=== PATIENT | female | born 1950 | race Caucasian/White ===

== ENCOUNTER → 2020-08-16 | Outpatient (CLI) | payer SELFPAY | PROVIDERS: Referring Provider Internal Medicine; Visit Provider Internal Medicine | DX: Z23 Encounter for immunization (principal) | CPT/HCPCS: 90471; 90686 ==

== ENCOUNTER → 2020-10-05 07:36 | Outpatient (CLI) | payer MEDICARE, SELFPAY ==
[2020-10-05] MEDS: COVID-19 VACC(MODERNA-1)/PF 100 MCG/0.5 ML VIAL IM (07:46)
== END ==
PROVIDERS: Visit Provider Internal Medicine
DX: Z23 Encounter for immunization (principal)
CPT/HCPCS: 0011A; 91301

== ENCOUNTER → 2020-11-01 07:42 | Outpatient (CLI) | payer OTHER, SELFPAY ==
[2020-11-01] MEDS: COVID-19 VACC #2, MRNA(MOD) 100 MCG/0.5 ML VIAL IM (07:49)
== END ==
PROVIDERS: Visit Provider Internal Medicine
DX: Z23 Encounter for immunization (principal)
CPT/HCPCS: 0012A; 91301

== ENCOUNTER → 2020-12-06 07:19 | Outpatient (CLI) | payer OTHER, MEDICARE, SELFPAY ==
[2020-12-06 08:13] LABS: Add Manual Diff / Slide Review NO; Basophils Absolute Auto 100 /uL (0-100); Eosinophils Absolute Auto 200 /uL (0-450); Eosinophils Percent Auto 3.6 % (2-4); Hematocrit 38.2 % (36-46); Lymphocytes Absolute Auto 1700 /uL (1100-4500); Lymphocytes Percent Auto 33.4 % (25-40); Mean Corpuscular Hemoglobin 31.5 PG (26-34); Mean Corpuscular Volume 92.6 fL (80-100); Monocytes Absolute Auto 400 /uL (0-900); Monocytes Percent Auto 8.8 % (3-14); Neutrophils Absolute Auto 2700 /uL (1500-7000); Neutrophils Percent Auto 53.2 % (50-75); Platelet Count 255 X10^3/uL (150-400); Red Blood Cell Count 4.13 X10^6/uL (4.0-5.2); Red Cell Distribution Width 13.7 % (11.6-14.8)
[2020-12-06 08:26] LABS: Alanine Aminotransferase 23 IU/L (<35); Albumin 4.1 g/dL (3.5-5.0); Albumin Globulin Ratio 1.4 (1.0-2.8); Alkaline Phosphatase 105 U/L (38-126); Aspartate Aminotransferase 28 IU/L (14-36); BUN Creatinine Ratio 43.9 (6-22); Bilirubin Total 0.3 mg/dL (0.2-1.3); Blood Urea Nitrogen 25 mg/dL (7-17); Calcium 9.3 mg/dL (8.4-10.2); Carbon Dioxide 29 mmol/L (22-32); Chloride 106 mmol/L (98-107); Cholesterol 173 mg/dL (140-199); Estimated Glomerular Filt Rate > 60.0 mL/min (>60); Globulin 2.9 g/dL (1.7-4.1); Glucose 99 mg/dL (80-110); HDL Cholesterol 69 mg/dL (40-60); HEMOLYSIS < 15 (0-50); LDL Cholesterol Calculated 92 mg/dL (<100); Potassium 4.2 mmol/L (3.4-5.1); Sodium 138 mmol/L (137-145); Triglycerides 62 mg/dL (35-150)
[2020-12-06 08:41] LABS: Vitamin D 25 Hydroxy (D3) 25.2 ng/mL (30.0-100.0)
[2020-12-06 08:56] LABS: TSH w/ Reflex to FT4 4.13 uIU/mL (0.47-4.68)
== END ==
PROVIDERS: PCP Physician Assistant; Referring Provider Physician Assistant; Visit Provider Physician Assistant
DX: Z13.9 Encounter for screening, unspecified (principal)
CPT/HCPCS: 36415; 80053; 80061; 82306; 84443; 85025

== ENCOUNTER → 2020-12-09 13:43 | Outpatient (CLI) | payer OTHER, SELFPAY | PROVIDERS: PCP Physician Assistant; Referring Provider Physician Assistant; Visit Provider Physician Assistant | DX: M81.0 Age-related osteoporosis without current pathological fracture (principal); Z78.0 Asymptomatic menopausal state; E07.9 Disorder of thyroid, unspecified; Z90.722 Acquired absence of ovaries, bilateral | CPT/HCPCS: 77080 ==

== ENCOUNTER → 2020-12-28 14:57 | Outpatient (CLI) | payer OTHER, MEDICARE, SELFPAY ==
[2020-12-28 16:30] LABS: BUN Creatinine Ratio 27.2 (6-22); Blood Urea Nitrogen 25 mg/dL (7-17); Estimated Glomerular Filt Rate > 60.0 mL/min (>60)
== END ==
PROVIDERS: PCP Physician Assistant; Referring Provider Physician Assistant; Visit Provider Physician Assistant
DX: M81.0 Age-related osteoporosis without current pathological fracture (principal)
CPT/HCPCS: 36415; 82565; 84520

== ENCOUNTER → 2020-12-29 11:11 | Outpatient (CLI) | payer OTHER, SELFPAY ==
--- NOTE | 2020-12-29 | DI.MG.S_ITS ---
BILATERAL DIGITAL SCREENING MAMMOGRAM 3D/2D WITH CAD: 12/29/2020 CLINICAL: Routine screening. Comparison is made to exams dated: 08/14/2012 mammogram, 10/30/2013 mammogram, and 05/03/2016 mammogram - outside location. The tissue of both breasts is heterogeneously dense. This may lower the sensitivity of mammography. Current study was also evaluated with a Computer Aided Detection (CAD) system. No significant masses, calcifications, or other findings are seen in either breast. There has been no significant interval change. IMPRESSION: NEGATIVE There is no mammographic evidence of malignancy. A 1 year screening mammogram is recommended. This exam was interpreted at Station ID: [id number]. NOTE: For mammograms, a report in lay terms will be sent to the patient. Approximately 15% of breast malignancies will not be visualized mammographically. In the management of a palpable breast mass, a negative mammogram must not discourage biopsy of a clinically suspicious lesion. Electronically Signed By: Ashkan gallagher/israel:12/29/2020 12:51:20 letter sent: Normal Exam ACR BI-RADS Category 1: Negative [id number]
== END ==
PROVIDERS: PCP Physician Assistant; Referring Provider Physician Assistant; Visit Provider Physician Assistant
DX: Z12.31 Encounter for screening mammogram for malignant neoplasm of breast (principal)
CPT/HCPCS: 77063; 77067

== ENCOUNTER → 2021-01-02 13:13 | Outpatient (CLI) | payer OTHER, SELFPAY ==
[2021-01-02 13:44] LABS: COVID19 -Nasal RAPID Negative (Negative)
== END ==
PROVIDERS: PCP Physician Assistant; Visit Provider Physician Assistant
DX: Z20.822 Contact with and (suspected) exposure to COVID-19 (principal)
CPT/HCPCS: 87635

== ENCOUNTER → 2021-01-20 08:52 | Outpatient (CLI) | payer OTHER, MEDICARE, SELFPAY ==
[2021-01-20 09:50] LABS: COVID19 -Nasal RAPID Negative (Negative)
== END ==
PROVIDERS: PCP Physician Assistant; Visit Provider Physician Assistant
DX: N34.3 Urethral syndrome, unspecified (principal); Z20.822 Contact with and (suspected) exposure to COVID-19
CPT/HCPCS: 87086; 87635

== ENCOUNTER → 2021-01-22 15:29 | Outpatient (CLI) | payer OTHER, MEDICARE, SELFPAY ==
[2021-01-22 16:58] LABS: COVID19 - ADMIT (NP swab/PCR) Negative (Negative)
== END ==
PROVIDERS: PCP Physician Assistant; Visit Provider Physician Assistant
DX: Z20.822 Contact with and (suspected) exposure to COVID-19 (principal); R53.83 Other fatigue
CPT/HCPCS: U0003

== ENCOUNTER → 2021-07-14 11:55 | Outpatient (CLI) | payer OTHER, MEDICARE, SELFPAY ==
--- NOTE | 2021-07-14 11:58 | DI.RAD.S_ITS ---
PROCEDURE: XR FOOT LT MIN 3V INDICATIONS: 2-3 metatarsal pain TECHNIQUE: 3 views of the foot were acquired. COMPARISON: None. FINDINGS: Bones: On 1 image, there is a mildly displaced fracture seen involving the distal aspect of the proximal phalanx of the 2nd toe. No metatarsal fractures are seen. No additional fractures or dislocations. No suspicious bony lesions. Distal fibular hardware is partially seen. Incidental note is made of a bipartite medial sesamoid bone. Age-appropriate bony degenerative changes are seen. A plantar calcaneal spur is seen. Soft tissues: No tibiotalar joint effusion. Achilles tendon appears normal. IMPRESSION: 2nd toe fracture. Dictated by: Erick Anthony M.D. on 07/14/2021 at 11:19 Approved by: Erick Anthony M.D. on 07/14/2021 at 11:20
== END ==
PROVIDERS: PCP Physician Assistant; Referring Provider Nurse Practitioner; Visit Provider Nurse Practitioner
DX: M79.672 Pain in left foot (principal); S92.512A Displaced fracture of proximal phalanx of left lesser toe(s), initial encounter for closed fracture; X58.XXXA Exposure to other specified factors, initial encounter
CPT/HCPCS: 73630

== ENCOUNTER → 2021-09-11 09:36 | Outpatient (CLI) | payer OTHER, MEDICARE, SELFPAY ==
[2021-09-11 13:47] LABS: COVID19 -Nasal RAPID Negative (Negative)
== END ==
PROVIDERS: PCP Physician Assistant; Visit Provider Nurse Practitioner Family
DX: Z20.822 Contact with and (suspected) exposure to COVID-19 (principal); R05.9 Cough, unspecified; R68.89 Other general symptoms and signs
CPT/HCPCS: 87635

== ENCOUNTER → 2021-11-03 17:47 | Outpatient (CLI) | payer OTHER, MEDICARE, SELFPAY | PROVIDERS: PCP Physician Assistant; Visit Provider Physician Assistant | DX: R30.0 Dysuria (principal) | CPT/HCPCS: 87077; 87086; 87186 ==

== ENCOUNTER 2021-12-02 10:12 | Observation (INO) | payer OTHER, MEDICARE, SELFPAY ==
[2021-12-02] VITALS (17 sets, daily range): BP systolic 111–150; BP diastolic 60–71; PULSE 54–66; RESP 10–19; TEMP 36.1–37; O2SAT 93–100; BMI 29.8
--- NOTE | 2021-12-02 10:28 | DI.RAD.S_ITS ---
PROCEDURE: XR CHEST 1V INDICATIONS: chest pain TECHNIQUE: One view of the chest was acquired. COMPARISON: None. FINDINGS: Surgical changes and devices: None. Lungs and pleura: Mild diffuse interstitial prominence. Patchy bibasilar atelectasis. No pleural effusions or pneumothorax. Mediastinum: Mediastinal contours appear normal. Mild cardiomegaly. Bones and chest wall: No suspicious bony lesions. Overlying soft tissues appear unremarkable. IMPRESSION: Mild cardiomegaly, mild diffuse interstitial prominence, patchy bibasilar atelectasis. Dictated by: Anthony Collins M.D. on 12/02/2021 at 10:36 Approved by: Anthony Collins M.D. on 12/02/2021 at 10:37
--- NOTE | 2021-12-02 10:28 | PC.NURSE ---
reports dizziness is worse when turning head to right side, first episode happaned turning head to right towards .
[2021-12-02 10:36] LABS: INR 1.1 (0.9-1.3); Prothrombin Time 12.4 SECONDS (10.1-12.7)
[2021-12-02 10:38] LABS: Add Manual Diff / Slide Review NO; Basophils Absolute Auto 100 /uL (0-100); Basophils Percent Auto 0.9 % (0-2); Eosinophils Absolute Auto 200 /uL (0-450); Eosinophils Percent Auto 3.4 % (2-4); Hematocrit 39.5 % (36-46); Hemoglobin 13.2 g/dL (12.0-16.0); Lymphocytes Absolute Auto 2500 /uL (1100-4500); Lymphocytes Percent Auto 38.3 % (25-40); Mean Corpuscular HGB Conc 33.5 % (30-36); Mean Corpuscular Hemoglobin 30.7 PG (26-34); Mean Corpuscular Volume 91.6 fL (80-100); Monocytes Absolute Auto 500 /uL (0-900); Monocytes Percent Auto 7.7 % (3-14); Neutrophils Absolute Auto 3200 /uL (1500-7000); Neutrophils Percent Auto 49.7 % (50-75); Platelet Count 284 X10^3/uL (150-400); Red Blood Cell Count 4.31 X10^6/uL (4.0-5.2); Red Cell Distribution Width 13.8 % (11.6-14.8); White Blood Cell Count 6.5 X10^3/uL (4.5-11.0)
[2021-12-02 10:39] LABS: PTT Partial Thromboplastin Tim 32 SECONDS (26.4-36.2)
[2021-12-02 10:41] LABS: Alanine Aminotransferase 29 IU/L (<35); Albumin 4.2 g/dL (3.5-5.0); Albumin Globulin Ratio 1.3 (1.0-2.8); Alkaline Phosphatase 100 U/L (38-126); Aspartate Aminotransferase 37 IU/L (14-36); BUN Creatinine Ratio 29.7 (6-22); Bilirubin Total 0.6 mg/dL (0.2-1.3); Blood Urea Nitrogen 19 mg/dL (7-17); Calcium 9.4 mg/dL (8.4-10.2); Carbon Dioxide 27 mmol/L (22-32); Chloride 108 mmol/L (98-107); Creatine Kinase 28 U/L (30-135); Estimated Glomerular Filt Rate > 60.0 mL/min (>60); Globulin 3.2 g/dL (1.7-4.1); Glucose 109 mg/dL (80-110); Lipase 128 U/L (23-300); Magnesium 2.3 mg/dL (1.6-2.3); Potassium 4.4 mmol/L (3.4-5.1); Sodium 137 mmol/L (137-145); Total Protein 7.4 g/dL (6.3-8.2)
[2021-12-02 10:45] LABS: HEMOLYSIS 65 (0-50)
[2021-12-02 10:52] LABS: Troponin I < 0.012 ng/mL (0.01-0.034)
[2021-12-02 10:56] LABS: COVID19 -Nasal RAPID Negative (Negative)
--- NOTE | 2021-12-02 10:59 | ED.SYNCOPE ---
HPI - Syncope General Chief Complaint: Syncope Stated Complaint: syncope Time Seen by Provider: 12/02/21 10:59 Source: patient and EMS Mode of arrival: EMS Limitations: no limitations History of Present Illness HPI narrative: This is a 71-year-old female who comes to emergency department with complaint of sudden onset of dizziness. Patient states she was lying in bed on her left side she turned her head and felt a click on the right side of her neck. And she immediately felt very dizzy. She describes the room is not spinning but more dizziness and lightheadedness. Patient states she felt like she was going to pass out thinks she may have had a short loss of consciousness. She states this happened again when I tried to do orthostatics with EMS and they tried to sit her up from a lying position. She notes it more when she rotates her head to the right. She states this happened about 9:00 a.m. in the morning. She has not had any recent trauma or injury. She did is have a history of vertigo 20 years ago but she states the room was spinning more. Patient has had some nausea but no active vomiting. She denies chest pain or shortness of breath. She denies fevers or chills. No diarrhea constipation, no new urinary symptoms. No numbness, tingling or weakness. Patient has a history of hypertension, hypothyroid, anxiety/depression, asthma. No anticoagulants no daily aspirin. Patient has had hysterectomy, bilateral oophorectomy, appendectomy. No tobacco had a half glass of beer yesterday, no illicit. Patient lives with her . Related Data Home Medications Medication Instructions Recorded Confirmed albuterol sulfate 2 puff INHALATION .PRN PRN 01/20/21 12/02/21 amlodipine 10 mg tablet 10 mg PO DAILY 01/20/21 12/02/21 atenolol 25 mg tablet 25 mg PO DAILY 01/20/21 12/02/21 escitalopram oxalate 20 mg tablet 10 mg PO DAILY 01/20/21 12/02/21 (Lexapro) levothyroxine 75 mcg tablet 75 mcg PO DAILY 01/20/21 12/02/21 trazodone 50 mg PO QPM 01/20/21 12/02/21 cetirizine 10 mg tablet (24Hour 10 mg PO DAILY 12/02/21 12/02/21 Allergy) zoledronic acid 5 mg/100 mL in See Rx Instructions .ROUTE .COMPLEX 12/02/21 12/02/21 mannitol 5 %-water intravenous piggybck (Reclast) Previous Rx's Medication Instructions Recorded cyclobenzaprine 5 mg tablet 5 mg PO TID PRN #21 tab 10/03/21 Allergies Allergy/AdvReac Type Severity Reaction Status Date / Time butorphanol [From Stadol] Allergy Verified 11/03/21 17:52 codeine Allergy Verified 11/03/21 17:52 Review of Systems Review of Systems ROS Unobtainable: All systems reviewed & are unremarkable except as noted in HPI and below Patient History Social History household members: spouse Smoking Status: Never smoker Smoking Status: Never smoker alcohol intake frequency: other Substance Use Type: does not use Exam Narrative Exam Narrative: GEN: well nourished, well appearing female, alert and oriented x 3, patient appears to be in mild distress. HEENT: Atraumatic, pupils are equal round reactive to light, no nystagmus, extraocular movements are intact, nares are clear, TMs are clear with no fluid, there is no conjunctival pallor. Throat is clear without any exudates, erythema, tonsillar enlargement or uvular deviation, no facial droop. HEART: Regular rate and rhythm without murmur, clicks, rubs. No carotid bruits, pulses are equal in upper and lower extremities LUNGS:Lungs clear to auscultation, no wheezes, rales, crackles, chest moves symmetrically ABD:bowel sounds normal, soft, non-tender, no guarding, rebound, rigidity, no masses noted, no hepatosplenomegaly :No CVA tenderness MSCL: Non-tender, no muscle atrophy, muscles strength 5/5 upper and lower extremities, full range of motion NEURO:CN 2-12 intact, sensation normal, finger nose finger test normal, heel patten test normal, romberg normal Initial Vital Signs Initial Vital Signs: Vital Signs Temperature 97.8 F 12/02/21 10:19 Pulse Rate 62 12/02/21 10:19 Respiratory Rate 18 12/02/21 10:19 Blood Pressure 150/68 H 12/02/21 10:19 Pulse Oximetry 98 12/02/21 10:19 Scores GCS Batchelor coma scale eye opening: Spontaneous Bat[place] coma scale verbal response: Orientated Batchelor coma scale motor response: Obey commands Batchelor coma scale total score: 15 Course Orders Ordered: Acetaminophen (Acetaminophen 325 Mg Tablet) 650 mg PO Q6HR PRN PRN Reason: Fever/Mild Pain (1-3) Last Admin: 12/03/21 00:27 Dose: 650 mg Documented by: MIKO Albuterol (Albuterol 2.5 Mg/3 Ml Neb (Adult)) 2.5 mg INH Q2H PRN PRN Reason: Shortness Of Breath Amlodipine Besylate (Amlodipine 5 Mg Tablet) 10 mg PO DAILY [facility] Atenolol (Atenolol 25 Mg Tablet) 25 mg PO DAILY [facility] Cyclobenzaprine HCl (Cyclobenzaprine 10 Mg Tablet) 5 mg PO TID PRN PRN Reason: muscle spasm Escitalopram Oxalate (Escitalopram 10 Mg Tablet) 10 mg PO DAILY [facility] Levothyroxine Sodium (Levothyroxine 75 Mcg Tablet) 75 mcg PO DAILY@0600 [facility] Last Admin: 12/03/21 06:05 Dose: 75 mcg Documented by: MIKO Loratadine (Loratadine 10 Mg Tablet) 10 mg PO DAILY [facility] Magnesium Hydroxide (Magnesium Hydroxide 30 Ml Udc) 30 ml PO DAILY PRN PRN Reason: Constipation Naloxone HCl (Naloxone 0.4 Mg/Ml Vial) 0.2 mg IV Q2MIN PRN PRN Reason: Opiate Reversal Stored In Pharmacy 0 each PO . [facility] Sodium Chloride (Sodium Chloride 0.9% Flush) 10 ml IV PRN PRN PRN Reason: Flush Sodium Chloride (Sodium Chloride 0.9% Flush) 10 ml IV BID [facility] Last Admin: 12/02/21 20:41 Dose: 10 ml Documented by: MIKO Trazodone HCl (Trazodone 50 Mg Tablet) 50 mg PO QPM [facility] Last Admin: 12/02/21 17:40 Dose: 50 mg Documented by: ELIZABETH Discontinued Medications Acetaminophen (Acetaminophen 325 Mg Tablet) 650 mg PO NOW ONE Stop: 12/02/21 13:15 Last Admin: 12/02/21 13:17 Dose: 650 mg Documented by: MÓNICA Lorazepam (Lorazepam 2 Mg/Ml Inj) 0.5 mg IV NOW ONE Stop: 12/02/21 13:54 Last Admin: 12/02/21 14:02 Dose: 0.5 mg Documented by: MÓNICA Lorazepam (Lorazepam 1 Mg Tablet) 1 mg PO NOW ONE Stop: 12/03/21 08:01 Meclizine HCl (Meclizine Hcl 12.5 Mg Tablet) 50 mg PO NOW ONE Stop: 12/02/21 11:18 Last Admin: 12/02/21 12:03 Dose: 50 mg Documented by: MÓNICA Ondansetron HCl (Ondansetron 4 Mg/2 Ml Inj) 4 mg IV NOW ONE Stop: 12/02/21 11:18 Last Admin: 12/02/21 12:03 Dose: 4 mg Documented by: MÓNICA Reevaluation(s) Reevaluation #1: Patient has syncope and or vertigo with prior history of vertigo. Head CT and angio do not show any major changes. She does not have any other acute neurologic changes appreciated. Patient had meclizine and Zofran and on re-evaluation. Patient updated on changes with CTA that shows thyroid nodule which should have follow up with ultrasound. Time: 13: Reevaluation #2: Patient had Ativan she had some improvement was able to sit up in bed cannot stand. Time: 15:22 Consultations Consultation #1: Dr. Araujo, had contacted initially had only had meclizine and Zofran. Asked if we can try Ativan which we did waited an hour patient is able to sit up now but is not able to ambulate. Patient accepted by Dr. Her jose. No other neurologic deficits on exam but does have sudden onset vertigo head CT angiography were negative. No other lab abnormalities noted. Time: 15:22 Vital Signs Vital signs: Vital Signs - 8 hr 12/02/21 10:19 12/02/21 10:30 12/02/21 11:00 Temperature 97.8 F Pulse Rate 62 54 L 55 L Respiratory Rate 18 Blood Pressure 150/68 H 125/65 118/64 Pulse Oximetry 98 95 95 12/02/21 11:14 12/02/21 11:30 12/02/21 12:00 Temperature Pulse Rate 60 55 L 64 Respiratory Rate 13 16 Blood Pressure 119/65 Pulse Oximetry 99 95 99 12/02/21 12:30 12/02/21 13:00 12/02/21 13:09 Temperature Pulse Rate 56 L 56 L 61 Respiratory Rate 12 11 L 17 Blood Pressure 129/60 Pulse Oximetry 96 95 96 12/02/21 13:30 12/02/21 14:00 Temperature Pulse Rate 61 55 L Respiratory Rate 12 Blood Pressure 130/63 Pulse Oximetry 98 97 MDM - Syncope Lab Data Result diagrams: 12/02/21 10:15 12/02/21 10:15 Labs: Lab Results 12/02/21 12/02/21 12/02/21 Range/Units 10:15 10:15 10:15 WBC 6.5 (4.5-11.0) X10^3/uL RBC 4.31 (4.0-5.2) X10^6/uL Hgb 13.2 (12.0-16.0) g/dL Hct 39.5 (36-46) % MCV 91.6 (80-100) fL MCH 30.7 (26-34) PG MCHC 33.5 (30-36) % RDW 13.8 (11.6-14.8) % Plt Count 284 (150-400) X10^3/uL Neut % (Auto) 49.7 L (50-75) % Lymph % (Auto) 38.3 (25-40) % [place] % (Auto) 7.7 (3-14) % Eos % (Auto) 3.4 (2-4) % Baso % (Auto) 0.9 (0-2) % Neut # (Auto) 3200 (7782-6779) /uL Lymph # (Auto) 2500 (9545-0496) /uL [place] # (Auto) 500 (0-900) /uL Eos # (Auto) 200 (0-450) /uL Baso # (Auto) 100 (0-100) /uL PT 12.4 (10.1-12.7) SECONDS INR 1.1 (0.9-1.3) APTT 32 (26.4-36.2) SECONDS Sodium 137 (137-145) mmol/L Potassium 4.4 (3.4-5.1) mmol/L Chloride 108 H (98-107) mmol/L Carbon Dioxide 27 (22-32) mmol/L BUN 19 H (7-17) mg/dL Creatinine 0.64 (0.52-1.04) mg/dL Estimated GFR > 60.0 (>60) mL/min BUN/Creatinine Ratio 29.7 H (6-22) Glucose 109 (80-110) mg/dL Calcium 9.4 (8.4-10.2) mg/dL Magnesium 2.3 (1.6-2.3) mg/dL Total Bilirubin 0.6 (0.2-1.3) mg/dL AST 37 H (14-36) IU/L ALT 29 (<35) IU/L Alkaline Phosphatase 100 (38-126) U/L Total Creatine Kinase 28 L (30-135) U/L CK-MB (CK-2) TNP CK-MB (CK-2) Rel Index TNP Troponin I < 0.012 (0.01-0.034) ng/mL Total Protein 7.4 (6.3-8.2) g/dL Albumin 4.2 (3.5-5.0) g/dL Globulin 3.2 (1.7-4.1) g/dL Albumin/Globulin Ratio 1.3 (1.0-2.8) Lipase 128 (23-300) U/L Urine RBC (0-5/HPF) Urine WBC (0-5/HPF) Urine Bacteria (None) Ur Culture Indicated? Micro UA Comment SARS-CoV-2 (PCR) (Negative) 12/02/21 12/02/21 Range/Units 10:15 12:23 WBC (4.5-11.0) X10^3/uL RBC (4.0-5.2) X10^6/uL Hgb (12.0-16.0) g/dL Hct (36-46) % MCV (80-100) fL MCH (26-34) PG MCHC (30-36) % RDW (11.6-14.8) % Plt Count (150-400) X10^3/uL Neut % (Auto) (50-75) % Lymph % (Auto) (25-40) % [place] % (Auto) (3-14) % Eos % (Auto) (2-4) % Baso % (Auto) (0-2) % Neut # (Auto) (4613-9146) /uL Lymph # (Auto) (9999-3045) /uL [place] # (Auto) (0-900) /uL Eos # (Auto) (0-450) /uL Baso # (Auto) (0-100) /uL PT (10.1-12.7) SECONDS INR (0.9-1.3) APTT (26.4-36.2) SECONDS Sodium (137-145) mmol/L Potassium (3.4-5.1) mmol/L Chloride (98-107) mmol/L Carbon Dioxide (22-32) mmol/L BUN (7-17) mg/dL Creatinine (0.52-1.04) mg/dL Estimated GFR (>60) mL/min BUN/Creatinine Ratio (6-22) Glucose (80-110) mg/dL Calcium (8.4-10.2) mg/dL Magnesium (1.6-2.3) mg/dL Total Bilirubin (0.2-1.3) mg/dL AST (14-36) IU/L ALT (<35) IU/L Alkaline Phosphatase (38-126) U/L Total Creatine Kinase (30-135) U/L CK-MB (CK-2) CK-MB (CK-2) Rel Index Troponin I (0.01-0.034) ng/mL Total Protein (6.3-8.2) g/dL Albumin (3.5-5.0) g/dL Globulin (1.7-4.1) g/dL Albumin/Globulin Ratio (1.0-2.8) Lipase (23-300) U/L Urine RBC None seen (0-5/HPF) Urine WBC None seen (0-5/HPF) Urine Bacteria None seen (None) Ur Culture Indicated? Cult not indicated Micro UA Comment Microscopic normal SARS-CoV-2 (PCR) Negative (Negative) Urine Dip Bedside Urine Glucose Negative Bedside Urine Bilirubin - Negative Bedside Urine Ketone - Negative Urine Specific [place] 1.010 Bedside Urine Occult Blood - Negative Bedside Urine pH 7.0 Bedside Urine Protein - Negative Bedside Urine Urobilinogen 0.2 Bedside Urine Nitrite - Negative Bedside Urine Leukocytes ++ 125 Esterase Imaging Data Chest x-ray: Radiologist's Impression: [address] [address] XRay Report Signed Patient: Aggie Mcpherson MR#: [id number] : 1950 Acct:[id number] Age/Sex: 71 / F Date of Service: 12/02/21 Loc: ED Accession Number: [id number] ?? Procedure: XR chest 1V Ordering Provider: Edie Smith D.O. PROCEDURE:? XR CHEST 1V ? INDICATIONS:? chest pain ? TECHNIQUE:? One view of the chest was acquired.? ? COMPARISON:? None. ? FINDINGS:? ? Surgical changes and devices:? None.? ? Lungs and pleura:? Mild diffuse interstitial prominence.? Patchy bibasilar atelectasis.? No pleural effusions or pneumothorax.? ? Mediastinum:? Mediastinal contours appear normal.? Mild cardiomegaly. ? Bones and chest wall:? No suspicious bony lesions.? Overlying soft tissues appear unremarkable.? ? IMPRESSION:? Mild cardiomegaly, mild diffuse interstitial prominence, patchy bibasilar atelectasis. ? ? Dictated by: Anthony Collins M.D. on 12/02/2021 at 10:36 ? ? Approved by: Anthony Collins M.D. on 12/02/2021 at 10:37 CT scan - head: Radiologist's Impression: [place] [address] CT Scan Report Signed Patient: Aggie Mcpherson MR#: [id number] : 1950 Acct:[id number] Age/Sex: 71 / F Date of Service: 12/02/21 Loc: ED Accession Number: [id number] ?? Procedure: CT head/brain wo con Ordering Provider: Edie Smith D.O. PROCEDURE:? CT HEAD/BRAIN WO CON ? INDICATIONS:? syncope/vertigo ? TECHNIQUE:? Noncontrast 4.5 mm thick angled axial sections acquired from the foramen magnum to the vertex, with coronal and sagittal reformats.? For radiation dose reduction, the following was used:? automated exposure control, adjustment of mA and/or kV according to patient size.? ? COMPARISON:? None. ? FINDINGS:? Image quality:? Excellent.? ? CSF spaces:? Basal cisterns are patent.? No extra-axial fluid collections.? The ventricles are symmetric in size and shape.? ? Brain:? No intracranial bleeds or masses.? There is cerebral volume loss for age, with resultant ventricular and sulcal prominence.? There are periventricular and deep white matter chronic small vessel ischemic changes.? There is intracranial internal carotid artery atherosclerosis.? ? Skull and face:? Calvarium and visualized facial bones appear intact, without suspicious lesions.? ? Sinuses:? Visualized sinuses and mastoids are clear.? ? IMPRESSION:? Negative head CT for patient age.? No evidence acute stroke, hemorrhage, or mass. ? ? Dictated by: Anthony Collins M.D. on 12/02/2021 at 11:14 ? ? Approved by: Anthony Collins M.D. on 12/02/2021 at 11:14?? CTA - brain/neck: Radiologist's Impression: [place] [address] CT Scan Report Signed Patient: Aggie Mcpherson MR#: [id number] : 1950 Acct:[id number] Age/Sex: 71 / F Date of Service: 12/02/21 Loc: ED Accession Number: [id number] ?? Procedure: CT angio head and neck Ordering Provider: Edie Smith D.O. PROCEDURE:? CT ANGIO HEAD AND NECK ? INDICATIONS:? dizziness, vertigo/ syncope ? TECHNIQUE:? After the administration of intravenous contrast, 1 mm thick sections acquired from the aortic arch through the [place] of [place].? Post-contrast 4.5 mm thick sections then re-acquired from the foramen magnum to the vertex.? 3-dimensional vccxxiz-xgbvglqnk-rmscaxwyuq (MIP) and/or volume rendering reformats were acquired of the central intracranial vasculature and neck separately. ? COMPARISON:? None. ? FINDINGS:? Image quality:? Excellent.? ? BRAIN:? CSF spaces:? Ventricles are normal in size and shape.? Basal cisterns are patent.? No extra-axial fluid collections.? ? Brain:? No midline shift.? No intracranial bleeds or masses.? [place]-white matter interface appears intact.? ? Skull and face:? Calvarium and facial bones appear intact, without suspicious lesions.? Orbits appear normal.? ? Sinuses:? Sinuses and mastoids are clear.? ? HEAD CT ANGIOGRAPHY:? Anterior circulation:? Intracranial internal carotid arteries are normal in size and flow.? The flow within the paired anterior cerebral arteries is normal and symmetric.? The flow within the middle cerebral arteries is normal and symmetric.? The anterior communicating artery is seen.? No aneurysms are seen.? ? Posterior circulation:? Visualized portions of the vertebral arteries demonstrate normal caliber, and join to form a normal appearing basilar artery.? Flow within the posterior cerebral arteries is normal and symmetric.? No aneurysms are seen.? ? NECK CT ANGIOGRAPHY:? Carotid system:? The great vessels demonstrate a bovine arch anatomy as they arise from the aortic arch.? The origins of the common carotid arteries appear patent.? The common carotid arteries demonstrate normal caliber and courses.? The bifurcation regions are both widely patent.? The internal carotid arteries demonstrate normal calibers and courses.? ? Posterior circulation:? The origins of the vertebral arteries both appear widely patent.? The more superior extracranial portions of both vertebral arteries also demonstrate normal courses and calibers.? They join to form a normal appearing basilar artery.? ? Soft tissues:? Visualized neck soft tissues demonstrate no suspicious abnormalities.? 2.5 cm left thyroid nodule incidentally noted. ? Bones:? No suspicious bony lesions.? Severe arthritic change C5-C6 interspace, and to a lesser extent C6-C7 interspace.? Visualized cervical spine appears normally aligned.? ? ? IMPRESSION:? ? 1. No evidence acute stroke, hemorrhage, or mass. ? 2.? Unremarkable CTA head.? No stenosis, aneurysm, occlusion, or focal filling defect. ? 3. Widely patent carotids. ? 4.? 2.5 cm left thyroid nodule. ? Comment:? Recommend further evaluation of the thyroid utilizing ultrasound on a nonemergent basis.? ? ? Any quantitative measurements of stenosis were performed using NASCET criteria.? ? ? Dictated by: Anthony Collins M.D. on 12/02/2021 at 11:17 ? ? Approved by: Anthony Collins M.D. on 12/02/2021 at 11:24?? ECG Data Attestation: I personally reviewed and interpreted this ECG as follows: Prior ECG tracings: not available for review Interpretation: Sinus bradycardia rate of 57 UT 202 QRS 82 and QTC 449. Given lead 3. No ST elevation. 0.5 mm depression V2 and V3. No priors for comparison. MDM Narrative Medical decision making narrative: This is a 71-year-old female comes emergency department with complaint of vertigo while rolling over in bed. Initially describes it more syncope and dizziness she does appreciate the room spinning but it is worsened with movement of her head. She did describe loss of consciousness once possibly twice which is quite atypical. Head CT angiography show no acute changes other than thyroid nodule needs follow-up this was shared with the patient. EKG and lab work do not show any acute abnormalities. COVID is negative. After meclizine, Zofran as well as Ativan patient has had some improvement but is unable to stand or ambulate safely. She has no acute neurologic deficits otherwise but stroke was included in differential. No rotatory nystagmus on exam making BPPV but less likely. Patient accepted by hospitalist for observation. Discharge Plan Departure Patient Disposition: Admitted as Observation Clinical Impression: Vertigo, Syncope Admit Date/Time: 12/02/21 15:23 Admit Provider: Simeon Araujo
--- NOTE | 2021-12-02 11:17 | DI.CT.S_ITS ---
PROCEDURE: CT ANGIO HEAD AND NECK INDICATIONS: dizziness, vertigo/ syncope TECHNIQUE: After the administration of intravenous contrast, 1 mm thick sections acquired from the aortic arch through the Early Branch of Sim. Post-contrast 4.5 mm thick sections then re-acquired from the foramen magnum to the vertex. 3-dimensional trsylsa-zekchahdi-opgssamnni (MIP) and/or volume rendering reformats were acquired of the central intracranial vasculature and neck separately. COMPARISON: None. FINDINGS: Image quality: Excellent. BRAIN: CSF spaces: Ventricles are normal in size and shape. Basal cisterns are patent. No extra-axial fluid collections. Brain: No midline shift. No intracranial bleeds or masses. Patton-white matter interface appears intact. Skull and face: Calvarium and facial bones appear intact, without suspicious lesions. Orbits appear normal. Sinuses: Sinuses and mastoids are clear. HEAD CT ANGIOGRAPHY: Anterior circulation: Intracranial internal carotid arteries are normal in size and flow. The flow within the paired anterior cerebral arteries is normal and symmetric. The flow within the middle cerebral arteries is normal and symmetric. The anterior communicating artery is seen. No aneurysms are seen. Posterior circulation: Visualized portions of the vertebral arteries demonstrate normal caliber, and join to form a normal appearing basilar artery. Flow within the posterior cerebral arteries is normal and symmetric. No aneurysms are seen. NECK CT ANGIOGRAPHY: Carotid system: The great vessels demonstrate a bovine arch anatomy as they arise from the aortic arch. The origins of the common carotid arteries appear patent. The common carotid arteries demonstrate normal caliber and courses. The bifurcation regions are both widely patent. The internal carotid arteries demonstrate normal calibers and courses. Posterior circulation: The origins of the vertebral arteries both appear widely patent. The more superior extracranial portions of both vertebral arteries also demonstrate normal courses and calibers. They join to form a normal appearing basilar artery. Soft tissues: Visualized neck soft tissues demonstrate no suspicious abnormalities. 2.5 cm left thyroid nodule incidentally noted. Bones: No suspicious bony lesions. Severe arthritic change C5-C6 interspace, and to a lesser extent C6-C7 interspace. Visualized cervical spine appears normally aligned. IMPRESSION: 1. No evidence acute stroke, hemorrhage, or mass. 2. Unremarkable CTA head. No stenosis, aneurysm, occlusion, or focal filling defect. 3. Widely patent carotids. 4. 2.5 cm left thyroid nodule. Comment: Recommend further evaluation of the thyroid utilizing ultrasound on a nonemergent basis. Any quantitative measurements of stenosis were performed using NASCET criteria. Dictated by: Anthony Collins M.D. on 12/02/2021 at 11:17 Approved by: Anthony Collins M.D. on 12/02/2021 at 11:24
--- NOTE | 2021-12-02 11:17 | DI.CT.S_ITS ---
PROCEDURE: CT HEAD/BRAIN WO CON INDICATIONS: syncope/vertigo TECHNIQUE: Noncontrast 4.5 mm thick angled axial sections acquired from the foramen magnum to the vertex, with coronal and sagittal reformats. For radiation dose reduction, the following was used: automated exposure control, adjustment of mA and/or kV according to patient size. COMPARISON: None. FINDINGS: Image quality: Excellent. CSF spaces: Basal cisterns are patent. No extra-axial fluid collections. The ventricles are symmetric in size and shape. Brain: No intracranial bleeds or masses. There is cerebral volume loss for age, with resultant ventricular and sulcal prominence. There are periventricular and deep white matter chronic small vessel ischemic changes. There is intracranial internal carotid artery atherosclerosis. Skull and face: Calvarium and visualized facial bones appear intact, without suspicious lesions. Sinuses: Visualized sinuses and mastoids are clear. IMPRESSION: Negative head CT for patient age. No evidence acute stroke, hemorrhage, or mass. Dictated by: Anthony Collins M.D. on 12/02/2021 at 11:14 Approved by: Anthony Collins M.D. on 12/02/2021 at 11:14
[2021-12-02] MEDS: ONDANSETRON 4 MG/2 ML INJ IV (12:03)
[2021-12-02] MEDS: MECLIZINE HCL 12.5 MG TABLET 50 MG PO (12:03)
[2021-12-02 12:48] LABS: Bacteria Urine None Seen; Culture Indicated Urine Cult Not Indicated; RBC Urine None Seen (0-5/HPF); Urine Comments Microscopic Normal; WBC Urine None Seen (0-5/HPF)
[2021-12-02] MEDS: ACETAMINOPHEN 325 MG TABLET 650 MG PO (13:17)
[2021-12-02] MEDS: LORazepam 2 MG/ML INJ 0.5 MG IV (14:02)
--- NOTE | 2021-12-02 15:18 | PC.NURSE ---
Attempted second ambulation trial. Initially pt stated she felt better, then while sitting felt like she was leaning to the right side again. Tipped and caught self with right hand. Sat up on edge of bed and stood for 30 seconds before feeling like she was again leaning more to the right and started having nausea and dizziness. Assisted pt to sit and lay back down in bed. Provider updated.
--- NOTE | 2021-12-02 16:18 | DI.MRI.S_ITS ---
PROCEDURE: MR HEAD/BRAIN WO CON INDICATIONS: acute dysequilibrium TECHNIQUE: Non-contrast axial T1 spin echo, axial T2 fast spin echo, sagittal and axial FLAIR, coronal T2 fast spin echo, axial gradient echo, axial diffusion and ADC through the brain. COMPARISON: [facility], CT, CT ANGIO HEAD AND NECK, 12/02/2021, 11:35. FINDINGS: Image quality: Excellent. CSF spaces: Ventricles appear symmetric in size and shape. Basal cisterns are patent. No extra-axial fluid collections. Brain: No intracranial bleeds or mass effects. There is cerebral volume loss for age. There are periventricular and deep white matter chronic small vessel ischemic changes. Brainstem appears normal. Diffusion-weighted images show no acute ischemic insults. No chronic ischemic insults. T2 signal abnormality in the kalyn without associated diffusion weighted signal abnormalities consistent with chronic small vessel ischemic change Normal intravascular flow voids are present. Skull and face: Calvarial bone marrow is normal in signal. Orbits are normal. Sinuses: Sinuses and mastoids are clear. IMPRESSION: 1. Age-related volume loss and small vessel ischemic change. 2. No evidence acute stroke, hemorrhage, or mass. Dictated by: Anthony Collins M.D. on 12/03/2021 at 10:13 Approved by: Anthony Collins M.D. on 12/03/2021 at 10:20
--- NOTE | 2021-12-02 16:24 | PM.HP.1 ---
History of Present Illness History of Present Illness Date Patient Seen: 12/02/21 Time Patient Seen: 16:00 Date of Onset of Symptoms: 12/02/21 Chief complaint: syncope Narrative: Patient is 71-year-old female with history of hypertension, hypothyroidism, C-spine stenosis, presented to hospital for evaluation syncope. She was lying in bed this morning when became acutely symptomatic after she turned to her side to talk to her and felt a pop in the right neck area. Immediately afterwards she felt her vision blacking out and thinks she passed out briefly. She denies any spinning type sensation. Her came to help her out of bed and as she was sitting up she passed out again. In the emergency department her symptoms were reproducible with trying to get her to sit up and stand on the side of the bed where upon she almost blacked out and seemed to fall back leading more towards her right side. She has not noticed any unilateral weakness. She has not noticed symptoms other than with position change. No headache or diplopia. Never experienced something like this before. Vitals and labs stable in ED. EKG sinus rhythm without acute changes. Chest x-ray normal. Head CT unremarkable. Head/neck CTA unremarkable except for 2.5 cm left thyroid nodule. Family history: Father had [place] at age 51 and was a smoker, of Alzheimer's Social history: Nonsmoker Patient History Family & Social History Safety & Behavioral: Feels Safe in Current Yes Environment Been Physically Hurt or No Threatened By a Person Tobacco & Substance use: Smoking Status Never smoker alcohol intake frequency other Substance Use Type does not use Meds Home Medications and Allergies Home Medications Medication Instructions Recorded Confirmed Type albuterol sulfate 2 puff INHALATION .PRN PRN 01/20/21 12/02/21 History amlodipine 10 mg tablet 10 mg PO DAILY 01/20/21 12/02/21 History atenolol 25 mg tablet 25 mg PO DAILY 01/20/21 12/02/21 History escitalopram oxalate 20 mg tablet 10 mg PO DAILY 01/20/21 12/02/21 History (Lexapro) levothyroxine 75 mcg tablet 75 mcg PO DAILY 01/20/21 12/02/21 History trazodone 50 mg PO QPM 01/20/21 12/02/21 History cyclobenzaprine 5 mg tablet 5 mg PO TID PRN #21 tab 10/03/21 12/02/21 Rx cetirizine 10 mg tablet (24Hour 10 mg PO DAILY 12/02/21 12/02/21 History Allergy) zoledronic acid 5 mg/100 mL in See Rx Instructions .ROUTE .COMPLEX 12/02/21 12/02/21 History mannitol 5 %-water intravenous piggybck (Reclast) Allergies Allergy/AdvReac Type Severity Reaction Status Date / Time butorphanol [From Stadol] Allergy Verified 11/03/21 17:52 codeine Allergy Verified 11/03/21 17:52 Review of Systems Review of Systems Narrative: Ten point ROS otherwise negative. Exam Vital Signs (past 8 hours): - 12/02/21 10:19 12/02/21 10:30 12/02/21 11:00 Temperature 97.8 F Pulse Rate 62 54 L 55 L Respiratory Rate 18 Blood Pressure 150/68 H 125/65 118/64 Pulse Oximetry 98 95 95 12/02/21 11:14 12/02/21 11:30 12/02/21 12:00 Temperature Pulse Rate 60 55 L 64 Respiratory Rate 13 16 Blood Pressure 119/65 Pulse Oximetry 99 95 99 12/02/21 12:30 12/02/21 13:00 12/02/21 13:09 Temperature Pulse Rate 56 L 56 L 61 Respiratory Rate 12 11 L 17 Blood Pressure 129/60 Pulse Oximetry 96 95 96 12/02/21 13:30 12/02/21 14:00 12/02/21 15:00 Temperature Pulse Rate 61 55 L 55 L Respiratory Rate 12 14 Blood Pressure 130/63 Pulse Oximetry 98 97 97 12/02/21 15:09 12/02/21 15:14 Temperature Pulse Rate 66 60 Respiratory Rate 19 10 L Blood Pressure 111/61 128/62 Pulse Oximetry 100 95 Oxygen Delivery Method Room Air Narrative Exam Narrative: General: Alert very pleasant and cooperative female presently no acute distress lying in hospital bed HEENT: Nontraumatic, pupils equal and reactive to light, no nystagmus, does get near syncope with lateral eye movements Neck: No lymphadenopathy or neck mass, there is a palpable right thyroid nodule Lungs: Clear to auscultation Heart: Normal S1 and S2, regular rate and rhythm without murmur Abdomen: Soft, nontender, no HSM Extremities no edema Neurological fully oriented, speech normal, affect normal, no pronator drift, no leg drift, normal F to N and H to S, sensory intact Objective Labs Result Diagrams: 12/02/21 10:15 12/02/21 10:15 Labs: Laboratory Results - last 24 hr 12/02/21 12/02/21 12/02/21 10:15 10:15 10:15 WBC 6.5 RBC 4.31 Hgb 13.2 Hct 39.5 MCV 91.6 MCH 30.7 MCHC 33.5 RDW 13.8 Plt Count 284 Neut % (Auto) 49.7 L Lymph % (Auto) 38.3 Overton % (Auto) 7.7 Eos % (Auto) 3.4 Baso % (Auto) 0.9 Neut # (Auto) 3200 Lymph # (Auto) 2500 Overton # (Auto) 500 Eos # (Auto) 200 Baso # (Auto) 100 PT 12.4 INR 1.1 APTT 32 Sodium 137 Potassium 4.4 Chloride 108 H Carbon Dioxide 27 BUN 19 H Creatinine 0.64 Estimated GFR > 60.0 BUN/Creatinine Ratio 29.7 H Glucose 109 Calcium 9.4 Magnesium 2.3 Total Bilirubin 0.6 AST 37 H ALT 29 Alkaline Phosphatase 100 Total Creatine Kinase 28 L CK-MB (CK-2) TNP CK-MB (CK-2) Rel Index TNP Troponin I < 0.012 Total Protein 7.4 Albumin 4.2 Globulin 3.2 Albumin/Globulin Ratio 1.3 Lipase 128 Urine RBC Urine WBC Urine Bacteria Ur Culture Indicated? Micro UA Comment SARS-CoV-2 (PCR) 12/02/21 12/02/21 10:15 12:23 WBC RBC Hgb Hct MCV MCH MCHC RDW Plt Count Neut % (Auto) Lymph % (Auto) Overton % (Auto) Eos % (Auto) Baso % (Auto) Neut # (Auto) Lymph # (Auto) Overton # (Auto) Eos # (Auto) Baso # (Auto) PT INR APTT Sodium Potassium Chloride Carbon Dioxide BUN Creatinine Estimated GFR BUN/Creatinine Ratio Glucose Calcium Magnesium Total Bilirubin AST ALT Alkaline Phosphatase Total Creatine Kinase CK-MB (CK-2) CK-MB (CK-2) Rel Index Troponin I Total Protein Albumin Globulin Albumin/Globulin Ratio Lipase Urine RBC None seen Urine WBC None seen Urine Bacteria None seen Ur Culture Indicated? Cult not indicated Micro UA Comment Microscopic normal SARS-CoV-2 (PCR) Negative Assessment & Plan Assessment & Plan narrative: 1. Acute syncope -this is unusual presentation which seems to be brought on by positional changes, just turning or sitting up in bed, not really orthostatic -symptoms are severe and patient unable to stand or ambulate without risk of falling -head CT, head/neck CTA: Unremarkable, no evidence of vertebral dissection -cardiac etiology on likely with definite positional component -obtain brain MR stroke protocol -telemetry monitoring -PT consult in a.m. -general diet 2. Left thyroid nodule seen on CT -outpatient follow-up with ultrasound and biopsy and further monitoring is indicated 3. Hypertension, stable -continue patient's routine amlodipine and atenolol 4. Hypothyroidism -continue routine levothyroxine 5. History of asthma, stable -continue albuterol MDI as needed Time Spent With Patient Critical Care time: I spent a total of [] minutes of critical care time on this patient's care today; this time is exclusive of procedural time.
[2021-12-02] MEDS: TRAZODONE 50 MG TABLET PO (17:40)
--- NOTE | 2021-12-02 18:32 | PC.NURSE ---
Day shift - Pt arrived on floor at 1600. Telemetry put on Pt. All VSS except pt is Sinus Yohan but says that is baseline. Pt denies pain. Nosigns of stroke however pt has severe dizziness upon subtle movement of body and when tracing ny penlight w/eyes. Pt has slight nausea w/ movement. Pt wanted her home meds sent to pharmacy. Pt A&O X4.
[2021-12-02] MEDS: SODIUM CHLORIDE 0.9% FLUSH 10 ML IV (20:41)
--- NOTE | 2021-12-02 23:16 | PC.NURSE ---
Patient is alert and oriented. Upon waking stated she only felt slight dizziness and did not increase with head movement but become more dizzy when turning onto side. Denies vertigo. Breath sounds CTA with RA sat of 93%. HRR but bradycardic with rate in 50's; telemetry reading was SB. Complained of slight nausea but declined antiemetic. BT present and is passing flatus. Denied dysuria, frequency or urgency with urination; is using bedpan due to dizziness. Can turn self in bed. Gait not assessed at this time. Denied pain. Wearing bilateral calf SCD's. Fall risk score is high and bed alarm is activated.
[2021-12-03] VITALS (16 sets, daily range): BP systolic 112–158; BP diastolic 53–87; PULSE 58–76; RESP 16–18; TEMP 36.3–37.1; O2SAT 93–100
[2021-12-03] MEDS: ACETAMINOPHEN 325 MG TABLET 650 MG PO ×2 (00:27→09:17)
[2021-12-03] MEDS: LEVOTHYROXINE 75 MCG TABLET PO (06:05)
[2021-12-03] MEDS: atenoloL 25 MG TABLET PO (09:09)
[2021-12-03] MEDS: AMLODIPINE 5 MG TABLET 10 MG PO (09:10)
[2021-12-03] MEDS: ESCITALOPRAM 10 MG TABLET PO (09:10)
[2021-12-03] MEDS: LORazepam 1 MG TABLET PO (09:10)
[2021-12-03] MEDS: LORATADINE 10 MG TABLET PO (09:10)
[2021-12-03] MEDS: SODIUM CHLORIDE 0.9% FLUSH 10 ML IV ×2 (09:11→19:38)
--- NOTE | 2021-12-03 11:41 | PT.IIE ---
Physical Therapy Inpatient Evaluation/Re-Eval M1 PT/OT-IP Prior Functional Status Start: 12/03/21 08:24 Freq: NEEDED Status: Active Protocol: Document 12/03/21 11:41 AW (Rec: 12/03/21 13:15 AW [id number]) Medical Review Prior Functional Status Medical History Reviewed Yes Communication WNL. Pt is an effective verbal communicator. Mobility and Gait Independent without meaningful limit in terms of time or distance. She reports one fall from her RV steps a few weeks ago but denies any other falls in the past two years. Activities of Daily Living and IADL's Independent. Pt drives, manages her own finances and medications. She has new glasses with an updated prescription. Prior Functional Level (Other details) Pt reports she had a cold a few weeks ago but it cleared quickly and did not linger. She had her tetanus shot updated last week after a needle stick injury at work and reports she was quite stiff with a lot of joint pain for several days. PMH is significant for BPPV years ago , cervical spine stenosis, HTN . Pt is very clear that what she is experiencing now does not involve any room spinning sensation. Social History Household Members spouse Living Arrangements Apartment/Condo Number of Floors (Floors) One Floor Number of Stairs To Enter/Railing? 2 MIRYAM with wide bilateral rails (can only use one at a time). There is a full basement but pt has no need to go downstairs. 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 She lives with her new , Grey. She has daughters in [place] and [place]. She has a son with schizoaffective disorder who was recently released from group home and is currently staying with her. M2 PT-IP Current Condition Start: 12/03/21 08:24 Freq: NEEDED Status: Active Protocol: Document 12/03/21 11:41 AW (Rec: 12/03/21 13:15 AW [id number]) Physical Therapy Current Condition Current Condition Evaluation Date 12/03/21 Treatment Diagnosis syncope, impaired mobility Onset Date 12/02/21 M3 PT-IP Subjective Start: 12/03/21 08:24 Freq: NEEDED Status: Active Protocol: Document 12/03/21 11:41 AW (Rec: 12/03/21 13:15 AW [id number]) Subjective Physical Therapy Visit Type Type Initial Evaluation Visit Start Time 11:14 Visit Stop Time 11:41 Total Visit Minutes 27 Number of FIELD APPRAISER Visits 0 Physical Therapy Visit Comments Patient Comments Pt is willing to try sitting up but reports that she has nearly blacked out every time she has tried in the past 24 hours. Patient Goals Pt hopes to be able to sit up without dizziness. Therapy Pain Assessment Pain When Pain Assessed At Rest Pain Present Pain Present Pain Reported Location back Scale Used not quantified M4 PT-IP Mobility and Gait Start: 12/03/21 08:24 Freq: NEEDED Status: Active Protocol: Document 12/03/21 11:41 AW (Rec: 12/03/21 13:15 AW [id number]) PT-Bed Mobility Assessment Rolling Type of Rolling Bilateral Level of Assist Standby Assistance Supine to Sit Supine to Sit Contact Guard Assistance, Minimal Assistance,1 Person Assistance,Bedrails Sit to Supine Sit to Supine Minimal Assistance,1 Person Assistance Scooting Scooting Up and Down in Bed Standby Assistance PT-Transfer Assessment Comments Mobility Comments Pt was lying supine in the bed as PT arrived. BP measured at right forearm was 128/70 HR 59. Pt moved her head within a small range of motion and did not complain of dizziness. She was able to roll right and left with minimal dizziness. She sat up on the right side of the bed with heavy use of the bed rail min A and immediately reported dizzy sensation. No nystagmus was observed. Pt reported feeling that a shade was being lifted from her neck to the top of her head. BP was 145/73 HR 66. Min A for return to supine. Pt recovered quickly. She agreed to try again with similar result. Pt was encouraged to remain sitting this time and did need some support due to posterior and rightward lean. Symptoms seemed to have cleared. Pt looked up briefly and symptoms returned immediately. Min A to assist pt back to supine. BP 152/83 HR 64. Pt was left with call light and tray table in reach. Bed alarm was on for safety. Informed RN and MD of findings. Gait Assessment Comments Gait Comments Unsafe for ambulation at time of evaluation. PT-Balance Assessment Sitting Balance and Reactions Static Sitting Balance Ability Fair Dynamic Sitting Balance Ability Poor M5 PT-IP Objective Assessments Start: 12/03/21 08:24 Freq: NEEDED Status: Active Protocol: Document 12/03/21 11:41 AW (Rec: 12/03/21 13:15 AW [id number]) Orientation Orientation/Cognition Level of Alertness Alert Orientation Name,Day of Week,Place, Situation Language Function Ability No Deficits Noted Safety Awareness Understands Safety Issues Gross Range of Motion Lower Extremity ROM Assessment Within Functional Limits Strength Lower Extremity Strength Assessment Within Functional Limits Coordination Assessment Gross Coordination Gross Coordination WNL Assessment Finger to Nose Test Normal Performance Pronation/Supination Test Normal Performance Sensation Assessment Sensation Gross Sensation WNL Other Assessments Other Other Assessments Pt does not tolerate oculomotor screening, especially lateral movements and convergence. No nystagmus observed throughout evaluation . Pt does have immediate onset of symptoms with minimal cervical extension. 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 She is independent in all regards at baseline. She and her spouse are newly-. Aggie was unable to tolerate oculomotor assessment at this encounter and did report blacking out sensation during two attempts to sit up at the edge of the bed. BP changes are documented above. No nystagmus was observed at any time during assessment. Cervical extension did reproduce symptoms. All imaging - CT head, CTA, MRI brain - has been negative. Pt is not safe for out of bed mobility at this time. Will continue to assess for safe discharge plan. Goals Bed Mobility Goal Independent Transfer Goal Independent Gait Goal Independent Gait Distance 250 Other Goals - up/down 2 steps with unilateral rail IND Days to Meet Goals 3 Frequency of Treatment Frequency Of Treatment Once a Day Treatment Plan Physical Therapy Treatment Plan Bed Mobility Training,Transfer Training,Gait Training, Therapeutic Exercise,Balance Retraining,Discharge Planning, Neuromuscular Re-ed Other Recommendations and Next Treatment mobility as tolerated Focus Recommendations To Nursing Amount of Assist Needed 1 Person Assist Discharge Recommendations PT Discharge Recommendations Home with Assistance,Home with 24/7 Assist Available Other Discharge Recommendations ENT referral Transportation Needs at Discharge Private Vehicle
--- NOTE | 2021-12-03 12:01 | CM.DPNOTE ---
Addendum entered by KRISTAN Powell 12/03/21 13:22: ADD: Spoke now w/ Brooke, PT who is concerned about patient's return home today; states patient is highly symptomatic, orthostatic, w/movement and would benefit from further inpatient therapy; possibly PT tomorrow that specializes in vestibular work Patient will likely not return home today; CM team will need to follow closely for coordination of the safest DCP available to patient. Home w/ HH (?) Patient remains observation status at this time. JW Original Note: Initial DCP Assessment Note Pt is a 71 yo female, resident of [place], arrives after a syncopal episode and admitted observation for stroke r/o. PT consult and MRI pending PCP: Cayla Lilly Payer: Harry/ ELAINE Reviewed chart, pt discussed in multidisciplinary rounds this morning. MRI neg for stroke, patient is likely to be discharged home this afternoon. Met w/patient, introduced role. 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
--- NOTE | 2021-12-03 12:26 | PM.PN.1 ---
Subjective Subjective Date Patient Seen: 12/03/21 Interval history: 71-year-old female with history of hypertension, hypothyroidism, C-spine stenosis, presented to hospital for evaluation of non orthostatic syncope brought on by changes in head/body position. Patient remains quite symptomatic and almost blacked out trying to sit up in bed with PT.. She also gets symptoms with looking up but not looking side to side. No spinning type sensation. Unable to ambulate out of bed with PT.. Her MRI is not show anything concerning. Exam Vital Signs (past 8 hours): - 12/03/21 04:54 12/03/21 08:00 12/03/21 10:09 Temperature 98.4 F 98.3 F Pulse Rate 59 L 65 Respiratory Rate 16 16 Blood Pressure 112/53 L 133/58 L Pulse Oximetry 93 94 93 12/03/21 10:29 Temperature Pulse Rate Respiratory Rate Blood Pressure Pulse Oximetry 97 Oxygen Delivery Method Room Air Oxygen Flow Rate 0 Narrative Exam Narrative: General: Alert, cooperative, NAD Neurological: Pupils equal, EOMI, no nystagmus, speech normal, affect normal Objective Labs Result Diagrams: 12/02/21 10:15 12/02/21 10:15 Labs: Laboratory Results - last 24 hr 12/02/21 12:23 Urine RBC None seen Urine WBC None seen Urine Bacteria None seen Ur Culture Indicated? Cult not indicated Micro UA Comment Microscopic normal PFSH Social History household members: spouse Smoking Status: Never smoker Assessment & Plan Assessment & Plan narrative: 1. Acute syncope -this is unusual presentation which seems to be brought on by positional changes, just turning or sitting up in bed, not orthostatic supine to sitting with PT -patient symptomatic just sitting on side of bed and unable to safely ambulate -head CT, head/neck CTA:? Unremarkable, no evidence of vertebral dissection -brain MR unremarkable except mild small-vessel disease changes -cardiac etiology unlikely with definite positional component -telemetry monitoring unremarkable -continue PT attempts at mobility 2. Left thyroid nodule seen on CT -outpatient follow-up with ultrasound and biopsy and further monitoring is indicated -patient aware of this finding 3.? Hypertension, stable -continue patient's routine amlodipine and atenolol 4.? Hypothyroidism -continue routine levothyroxine 5.? History of asthma, stable -continue albuterol MDI as needed Time Spent With Patient Critical Care time: I spent a total of [] minutes of critical care time on this patient's care today; this time is exclusive of procedural time. Quality VTE Deep Vein Thrombosis/Pulmonary Embolism Present on Admission: No
[2021-12-03] MEDS: TRAZODONE 50 MG TABLET PO (17:43)
[2021-12-04] VITALS (8 sets, daily range): BP systolic 123–133; BP diastolic 62–76; PULSE 57–65; RESP 14–18; TEMP 35.4–36.7; O2SAT 93–98
[2021-12-04] MEDS: LEVOTHYROXINE 75 MCG TABLET PO (05:34)
--- NOTE | 2021-12-04 06:23 | PC.NURSE ---
Pt still c/o dizzines when she makes sudden changes. Used bed mann through the night.
[2021-12-04] MEDS: AMLODIPINE 5 MG TABLET 10 MG PO (08:54)
[2021-12-04] MEDS: LORATADINE 10 MG TABLET PO (08:54)
[2021-12-04] MEDS: ESCITALOPRAM 10 MG TABLET PO (08:54)
[2021-12-04] MEDS: SODIUM CHLORIDE 0.9% FLUSH 10 ML IV (08:55)
--- NOTE | 2021-12-04 10:56 | PM.DS.1 ---
History of Present Illness History of Present Illness Date Patient Seen: 12/04/21 Time Patient Seen: 10:56 Chief complaint: syncope Narrative: Per Dr. Bender, Patient is 71-year-old female with history of hypertension, hypothyroidism, C-spine stenosis, presented to hospital for evaluation syncope.? She was lying in bed this morning when became acutely symptomatic after she turned to her side to talk to her and felt a pop in the right neck area.? Immediately afterwards she felt her vision blacking out and thinks she passed out briefly.? She denies any spinning type sensation.? Her came to help her out of bed and as she was sitting up she passed out again.? In the emergency department her symptoms were reproducible with trying to get her to sit up and stand on the side of the bed where upon she almost blacked out and seemed to fall back leading more towards her right side.? She has not noticed any unilateral weakness.? She has not noticed symptoms other than with position change.? No headache or diplopia.? Never experienced something like this before. Vitals and labs stable in ED. EKG sinus rhythm without acute changes.? Chest x-ray normal.? Head CT unremarkable.? Head/neck CTA unremarkable except for 2.5 cm left thyroid nodule. Family history: Father had UT at age 51 and was a smoker, of Alzheimer's Social history: Nonsmoker Discharge Providers Provider Date of admission: 12/02/21 15:23 Discharge Date: 12/04/21 Primary care physician: Cayla Lilly PA-C Consults: 12/02/21 16:23 Consult to Physical Therapy Evaluate & Treat Comment: Physician Instructions: Evaluate and Treat 12/02/21 17:37 Consult to Pastoral Services Routine Comment: per protocol Discharge provider: Jonathon Alford DO Summary Hospital Course Discharge Diagnosis: 1. Acute syncope 2. Left thyroid nodule seen on CT 3.? Hypertension, stable 4.? Hypothyroidism 5.? History of asthma, stable Hospital Course: This is a 71-year-old female who was admitted after an acute episode of syncope which had been brought on by minimal position changes concerning for a possible acute stroke. She had an unremarkable head CT, CT angiogram of her head and neck, and brain MRI essentially ruling out the possibility of an acute stroke leading to her presentation. Her symptoms slowly improved over the course of admission. Her home atenolol was held upon discharge for a mild bradycardia, though this may be able to be resumed as an outpatient. She was able to do quite well with physical therapy on the day of discharge. At The time of discharge, her symptoms are most likely consistent with BPPV given improvement, though cannot definitively exclude vestibular neuritis or other etiology for her symptoms. It did not appear to be a carotid sinus syncope based on telemetry evaluation and lack of blood pressure drop at the time of discharge. I recommended meclizine for the patient upon discharge, and if her symptoms should continue as an outpatient she may benefit from an ENT referral. She was also found to have a left thyroid nodule on imaging, which should have follow-up evaluation as an outpatient with her primary care provider. Time Spent with Patient Time spent: Less than 30 minutes Exam Vital Signs (past 8 hours): - 12/04/21 04:00 12/04/21 04:12 12/04/21 07:20 Temperature 95.7 F L Pulse Rate 58 L Respiratory Rate 16 14 Blood Pressure 125/70 Pulse Oximetry 93 93 95 12/04/21 07:42 12/04/21 09:00 Temperature 98.1 F Pulse Rate 57 L Respiratory Rate 18 Blood Pressure 133/62 Pulse Oximetry 96 96 Oxygen Delivery Method Room Air Oxygen Flow Rate 0 Narrative Exam Narrative: General:? Alert very pleasant and cooperative female presently no acute distress lying in hospital bed, later in bedside chair. HEENT:? Nontraumatic, pupils equal and reactive to light, no nystagmus. No reported dizziness with movement today. Lungs:? Clear to auscultation bilaterally. Heart:? Normal S1 and S2, regular rate and rhythm without murmur Abdomen:?S NT ND Extremities no edema or joint effusions. Objective Labs Result Diagrams: 12/02/21 10:15 12/02/21 10:15 [facility] Social History household members: spouse Smoking Status: Never smoker Discharge Plan Discharge Plan Patient Disposition: Home Provider Discharge Comment: You were admitted to the hospital with dizziness. Please follow up with your PCP for continued symptoms. Likely due to stones in your ear, please take meclizine at home 3x per day for 1-2 days, then taper as we discussed if symptoms are improved. If there is no improvement with this medication or worsens symptoms you can stop it as well. I would recommend not returning to work until you have follow up with your PCP next week. Discharge orders & Medications Prescriptions: New meclizine 25 mg tablet 25 mg PO TID 7 Days Qty: 21 0RF Continued levothyroxine 75 mcg tablet 75 mcg PO DAILY 0RF escitalopram oxalate [Lexapro] 20 mg tablet 10 mg PO DAILY 0RF amlodipine 10 mg tablet 10 mg PO DAILY 0RF albuterol sulfate 2 puff inhalation .PRN PRN (Reason: Shortness Of Breath) 0RF trazodone 50 mg PO QPM 0RF cyclobenzaprine 5 mg tablet 5 mg PO TID PRN (Reason: muscle spasm) Qty: 21 0RF cetirizine [24Hour Allergy] 10 mg Tablet 10 mg PO DAILY 0RF zoledronic [id number] [Reclast] 5 mg/100 mL Piggyback See Rx Instructions .ROUTE .COMPLEX 0RF Rx Instructions: 5mg/100mL injection once per year. Discontinued atenolol 25 mg tablet 25 mg PO DAILY 0RF Follow up/Referrals: Cayla Lilly PA-C [Primary Care Provider] - Diet/Activity/Treatments Diet: Diet as Tolerated Activity: As tolerated Visit Report/Discharge Packet Instructions: Vertigo, Dizziness, Nonvertigo, DI for Dizziness-Nonvertigo Discharge Data Primary Care Provider: Cayla Lilly Attending Provider: Simeon Araujo VTE Deep Vein Thrombosis/Pulmonary Embolism Present on Admission: No
--- NOTE | 2021-12-04 12:11 | PT.IPTN ---
Physical Therapy Treatment Note M2 PT-IP Current Condition Start: 12/03/21 08:24 Freq: NEEDED Status: Active Protocol: Document 12/03/21 11:41 AW (Rec: 12/03/21 13:15 AW [id number]) Physical Therapy Current Condition Current Condition Evaluation Date 12/03/21 Treatment Diagnosis syncope, impaired mobility Onset Date 12/02/21 M3 PT-IP Subjective Start: 12/03/21 08:24 Freq: NEEDED Status: Active Protocol: Document 12/04/21 10:08 AW (Rec: 12/04/21 12:11 AW [id number]) Subjective Physical Therapy Visit Type Type Treatment Note Visit Start Time 09:29 Visit Stop Time 10:08 Total Visit Minutes 39 Physical Therapy Visit Comments Patient Comments Pt agreed to participate with PT. My bottom doesn't like this bed any more. Patient Goals Return home with family support Therapy Pain Assessment Pain When Pain Assessed At Rest Pain Present Pain Present Pain Reported Location back Scale Used not quantified M4 PT-IP Mobility and Gait Start: 12/03/21 08:24 Freq: NEEDED Status: Active Protocol: Document 12/04/21 10:08 AW (Rec: 12/04/21 12:11 AW [id number]) PT-Bed Mobility Assessment Rolling Type of Rolling Roll to Left Level of Assist Standby Assistance Supine to Sit Supine to Sit Standby Assistance Scooting Scooting to Edge of Bed Standby Assistance PT-Transfer Assessment Sit to and From Stand Sit to and from Stand Standby Assistance,Contact Guard Assistance,Use of Upper Extremities Equipment Transfer Assistive Device Gait Belt,Straight Cane,Front Wheeled Walker Transfers Transfer Destination Chair,Wheelchair,Bedside Commode Transfer Technique ambulated with FWW or SPC Transfer Ability Level of Assist Standby Assistance,Contact Guard Assistance Comments Mobility Comments Pt was lying in bed with HOB elevated as PT arrived. She was hoping to attempt transfers today. Supine BP 125 /64 HR 68. She rolled to her left side (as she would at home) and completed supine to sit SBA. Pt reported mild dizziness and several beats of nystgmus were noted; all resolved quickly. BP was 169/ 93 HR 70. Pt stood at EOB with FWW for 15 seconds before reporting mild dizziness which again quickly resolved. Pt transferred to chair set up on her right side CGA. In sitting, BP was 130/80 HR 70. Pt stated she would like to use the commode. She stood and used FWW to transfer to [facility] [place] without dizziness. After voiding, she stood and ambulated 15 feet in the room without AD CGA. She reported mild dizziness during turns but had no sensation of blacking out. She transferred to the chair and then to a w/c SBA. PT wheeled pt to stairs and pt stood with SPC, walked 5 feet to the stairs CGA, and went up/down 3 stairs CGA with unilateral rail and CGA. Pt then ambulated 60 feet with SPC and w/c follow. Pt began to feel unsteady and sat on the w/c. On return to the room , pt transferred to the chair SBA and denied dizziness. BP was 115/79 HR 68. Gait Assessment Gait Gait Assistance Required: Standby Assistance,Contact Guard Assist Distance (Feet) 60 Assistive Devices Assistive Device Straight Cane Gait Deviations General Gait Pattern Decreased Stride Length, Decreased Feet Clearance Factors Limiting Gait Function Factors Limiting Gait Function Poor Balance Comments Gait Comments See mobility comments for details. Stair Climbing Assessment Evaluation Level of Assist On Stairs Contact Guard Assistance Devices Stair Climbing Assistive Devices Straight Cane,Right Railing Technique/Endurance Stair Climbing Direction Ascend and Descend Stair Climbing Technique Step Over Step Number of Steps Climbed 3 Stair Climbing Set # Repetitions (reps) 1 Comments Stair Climbing Comments Pt was slow but steady on steps, needing only CGA for reassurance. PT-Balance Assessment Sitting Balance and Reactions Static Sitting Balance Ability Good Dynamic Sitting Balance Ability Good Standing Balance and Reactions Static Standing Balance Ability Good Dynamic Standing Balance Ability Fair Device Used SPC M5 PT-IP Objective Assessments Start: 12/03/21 08:24 Freq: NEEDED Status: Active Protocol: Document 12/03/21 11:41 AW (Rec: 12/03/21 13:15 AW [id number]) Orientation Orientation/Cognition Level of Alertness Alert Orientation Name,Day of Week,Place, Situation Language Function Ability No Deficits Noted Safety Awareness Understands Safety Issues Gross Range of Motion Lower Extremity ROM Assessment Within Functional Limits Strength Lower Extremity Strength Assessment Within Functional Limits Coordination Assessment Gross Coordination Gross Coordination WNL Assessment Finger to Nose Test Normal Performance Pronation/Supination Test Normal Performance Sensation Assessment Sensation Gross Sensation WNL Other Assessments Other Other Assessments Pt does not tolerate oculomotor screening, especially lateral movements and convergence. No nystagmus observed throughout evaluation . Pt does have immediate onset of symptoms with minimal cervical extension. M6 PT-IP Treatment Start: 12/03/21 08:24 Freq: NEEDED Status: Active Protocol: Document 12/04/21 10:08 AW (Rec: 12/04/21 12:11 AW [id number]) Physical Therapy Treatment Education Education Provided Safety Other Treatments Other Treatment Performed Educated pt to set up her home with chairs along common routes in case of sudden onset dizziness. Recommended pt have SBA/CGA. Pt understood and agreed. M7 PT-IP Assessment and Plan Start: 12/03/21 08:24 Freq: NEEDED Status: Active Protocol: Document 12/04/21 10:08 AW (Rec: 12/04/21 12:11 AW [id number]) PT Summary Assessment and Plan Potential Rehabilitation Potential Good Status of Condition at Evaluation Evolving Summary Impairments Balance,Bed Mobility,Transfers ,Gait Progress Towards Goals Progressing Toward Goals Assessment Summary Aggie was able to progress her bed mobility, transfers, and gait with SPC with minimal reports of dizziness today. Nystagmus was briefly observed as she came to sitting position on left side of the bed. BP increased at that time but was stable otherwise. Pt is able to manage household distances with SPC and SBA/CGA . She will be safe to discharge home with her spouse and son to assist. Recommend outpatient follow up with ENT and vestibular PT. Goals Bed Mobility Goal Independent Transfer Goal Independent Gait Goal Independent Gait Distance 250 Other Goals - up/down 2 steps with unilateral rail IND Days to Meet Goals 3 Frequency of Treatment Frequency Of Treatment Once a Day Treatment Plan Physical Therapy Treatment Plan Bed Mobility Training,Transfer Training,Gait Training, Therapeutic Exercise,Balance Retraining,Discharge Planning, Neuromuscular Re-ed Other Recommendations and Next Treatment mobility as tolerated; Focus vestibular consult? Recommendations To Nursing Amount of Assist Needed 1 Person Assist Discharge Recommendations PT Discharge Recommendations Home with Assistance,Home with / Assist Available Other Discharge Recommendations ENT referral; vestibular PT Transportation Needs at Discharge Private Vehicle
--- NOTE | 2021-12-04 13:53 | PC.NURSE ---
Pt is A&OX3, this a.m. VSS, afebrile. She denies nausea this a.m. and denies pain. She reports dizziness being moderately controlled with position and eye movements. Her HR is slightly bradycardic at 57 and her a.m. Atenolol is held. She is able to tolerate working with therapy today and complete stairs. MD evaluating patient and clears her for discharge home this afternoon. She verbalizes understanding of discharge instructions, activity, worsening symptoms, fall precautions, medications and follow up instructions. She is escorted via wheel chair to a private vehicle with [employer] with all of her belongings including home medications.
== END 2021-12-04 13:00 | disposition home or self-care (01) ==
LOC: ED 10:59 → AC 15:24
PROVIDERS: Admitting Provider Internal Medicine; Emergency Provider Emergency Medicine; PCP Physician Assistant; Referring Provider Emergency Medicine; Visit Provider Internal Medicine
DX: R55 Syncope and collapse (principal); R42 Dizziness and giddiness; I10 Essential (primary) hypertension; E03.9 Hypothyroidism, unspecified; J45.909 Unspecified asthma, uncomplicated; R00.1 Bradycardia, unspecified; E04.1 Nontoxic single thyroid nodule; Z20.822 Contact with and (suspected) exposure to COVID-19
CPT/HCPCS: 36415; 70450; 70496; 70498; 70551; 71045; 80053; 81003; 81015; 82550; 83690; 83735; 84484; 85025; 85610; 85730; 87635; 93005; 94760; 96374; 96375; 97116; 97162; 97530; 99284; 99285; C9803; G0378; J2060; J2405; Q9967

== ENCOUNTER → 2022-02-06 13:34 | Outpatient (CLI) | payer OTHER, MEDICARE, SELFPAY ==
[2021-12-02 17:09] VITALS: BMI 29.8
--- NOTE | 2022-02-06 | DI.ECHO.S_ITS ---
[place] [facility]---------+ [facility] +---------+ : : [address] : : : : [id number] : : : : Phone: [phone] Echocardiogram Report + + :Name: JEOVANY RAMIRES Study Date: 02/06/2022 Height: 66 in : :[facility] ReadingLocation: Weight: 197 lb : : Gender: Female BSA: 2.0 m2 : :: 1950 Age: 71 yrs BP: 137/92 mmHg: :Reason For Study: Dizziness : :Ordering Physician: MAGUI, : :RAHUL Performed By: Brett Mclean : :Referring: RAHUL KILGORE : + + Interpretation Summary Normal sinus rhythm. Normal LV size, wall thickness, wall motion and LV systolic function. EF is 60-65%. Normal chamber sizes. No significant valvular abnormalities. No prior study available for comparison. Procedure: A two-dimensional transthoracic echocardiogram with color flow and Doppler was performed. The study quality was technically adequate. There is no prior echocardiogram noted for this patient. Left Ventricle: The left ventricle is normal in size and wall thickness. Left ventricular systolic function is normal. The ejection fraction is estimated to be 60-65%. There are no focal wall motion abnormalities. Diastolic function could not be accurately assessed due to unobtainable data. Right Ventricle: The right ventricle is normal in size and function. Atria: Both atria are normal in size. The interatrial septum grossly appears intact with no obvious evidence for an atrial septal defect. Mitral Valve: There is mild mitral annular calcification. There is trace mitral regurgitation. Aortic Valve: The aortic valve is normal in structure and function. No aortic regurgitation is present. Tricuspid Valve: The tricuspid valve is normal in structure and function. There is trace tricuspid regurgitation. Pulmonary artery pressures cannot be estimated because of the lack of a measurable TR jet velocity. Pulmonic Valve: The pulmonic valve is normal in structure and function. There is mild pulmonic regurgitation. Great Vessels: The aortic root is normal size. The dimensions of the ascending aorta are normal. The IVC is of normal diameter and collapses greater than 50% with a sniff. This suggests a low right atrial pressure of 3 mm Hg. Pericardium/ Pleura There is no pericardial effusion. There is no pleural effusion. MMode/2D Measurements & Calculations LVIDd: 5.7 cm LVOT diam: 1.9 cm LVIDs: 3.5 cm Ao root diam: 3.5 cm FS: 39.2 % asc Aorta Diam: 3.3 cm IVSd: 0.89 cm LVPWd: 0.85 cm LV joyner. diameter/BSA (cm/m^2): 2.9 LV sys. diameter/BSA (cm/m^2): 1.8 LA A2 area: 13.3 cm2 RA long axis: 5.5 cm LA A4 area: 16.1 cm2 RA area: 15.5 cm2 LA length (vol): 5.2 cm RA vol: 37.2 ml LA vol: 34.6 ml RA : 18.7 ml/m2 LA vol index: 17.4 ml/m2 TAPSE: 1.9 cm Doppler Measurements & Calculations Ao V2 max: 143.9 cm/sec LVOT Max Keegan: 108.0 cm/sec Ao V2 mean: 98.8 cm/sec LV V1 max P.7 mmHg Ao max P.3 mmHg LV V1 VTI: 18.4 cm Ao mean P.3 mmHg REGLA(I,D): 2.0 cm2 Ao V2 VTI: 25.4 cm REGLA(V,D): 2.1 cm2 sev ratio: 0.72 REGLA indexed to BSA (cm^2/m^2): 1.0 MV E max keegan: 48.6 cm/sec SV(LVOT): 50.6 ml MV A max keegan: 85.6 cm/sec MV E/A: 0.57 Med Peak E' Keeagn: 9.1 cm/sec E/E' med: 5.4 Lat Peak E' Keegan: 9.2 cm/sec E/E' lat: 5.3 E/e' average: 5.3 MV dec time: 0.49 sec Electronically signed by: Hilaria Carmichael M.D. on Reading Physician:02/07/2022 05:32 AM
== END ==
PROVIDERS: PCP Physician Assistant; Referring Provider Physician Assistant; Visit Provider Physician Assistant
DX: I37.1 Nonrheumatic pulmonary valve insufficiency (principal); R55 Syncope and collapse; R42 Dizziness and giddiness
CPT/HCPCS: 93306

== ENCOUNTER → 2022-02-21 10:36 | Outpatient (CLI) | payer OTHER, MEDICARE, SELFPAY ==
[2021-12-02 17:09] VITALS: BMI 29.8
--- NOTE | 2022-02-21 | DI.US.S_ITS ---
PROCEDURE: US THYROID INDICATIONS: Thyroid nodule/Hypothyroidism/Syncope TECHNIQUE: Real-time scanning was performed of the thyroid gland, with image documentation. COMPARISON: None. FINDINGS: Right: Thyroid lobe measures 5.5 x 1.5 x 1.8 cm, and is homogeneous in echotexture. Left: Thyroid lobe measures 6.1 x 2.4 x 2.5 cm, and is homogenous in echotexture. Isthmus: 6.2 mm thick. Nodule number: 1 Location: Left superior Size: 1.2 x 0.9 x 0.9 cm. Composition: Solid Echogenicity: Isoechoic Shape: wider than tall. Margins: Smooth Echogenic foci: None. Total points: 3 ACR TI-RADS category: Mildly suspicious Nodule number: 2 Location: Left mid to lower Size: 2.8 x 1.3 x 2.0 cm. Composition: Solid Echogenicity: Isoechoic Shape: wider than tall. Margins: Smooth Echogenic foci: None. Total points: 3 ACR TI-RADS category: Mildly suspicious Nodule number: 3 Location: Left isthmus Size: 1.1 x 0.9 x 0.9 cm. Composition: Solid Echogenicity: Isoechoic Shape: wider than tall. Margins: Smooth Echogenic foci: None. Total points: 3 ACR TI-RADS category: Mildly suspicious Nodule number: 4 Location: Right inferior Size: 1.0 x 0.8 x 0.8 cm. Composition: Solid Echogenicity: Isoechoic Shape: wider than tall. Margins: Smooth Echogenic foci: None Total points: 3 ACR TI-RADS category: Mildly suspicious IMPRESSION: Bilateral thyroid nodules as above. Recommend sonographically directed fine-needle aspiration involving the left #2 nodule. ACR TI-RADS definitions and recommendations: TI-RADS 1 (benign): 0 points. FNA not needed. TI-RADS 2 (not suspicious): 2 points. FNA not needed. TI-RADS 3 (mildly suspicious): 3 points. * FNA if 2.5 cm or larger, follow up if 1.5 cm or larger (at 1, 3, and 5 years). TI-RADS 4 (moderately suspicious): 4-6 points. * FNA if 1.5 cm or larger, follow up if 1 cm or larger (at 1, 2, 3, and 5 years). TI-RADS 5 (highly suspicious): 7 points or more. * FNA if 1 cm or larger, follow up if 0.5 cm or larger (every year for 5 years). Dictated by: Preet AGOSTO Interpreted: Arnold Ramesh MD on 02/21/2022 at 12:25 Transcribed by: BRAN on 02/21/2022 at 12:27 Approved by: Arnold Ramesh M.D. on 02/21/2022 at 12:36
--- NOTE | 2022-02-21 | DI.US.S_ITS ---
PROCEDURE: US CAROTID DOPPLER BI INDICATIONS: Thyroid nodule/Hypothyroidism/Syncope TECHNIQUE: Color and pulse Doppler interrogation was performed of both carotid systems, with image documentation and velocity measurements. COMPARISON: [facility], [place], US THYROID, 02/21/2022, 11:34. FINDINGS: Stenosis calculations are based on SRU (Society of Radiologists in Ultrasound) criteria. Right side: Brachial blood pressure: 179/98 mm Hg. Common carotid artery peak systolic velocity: 112 cm/sec. Internal carotid artery peak systolic velocity: 86 cm/sec. Internal carotid artery end diastolic velocity: 29 cm/sec. External carotid artery peak systolic velocity: 63 cm/sec. ICA/CCA peak systolic ratio: 0.8 . Patton scale imaging description: Minimal plaque. Percent internal carotid artery stenosis: Less than 50% . Vertebral artery: Flow direction is antegrade. Left side: Brachial blood pressure: 168/95 mm Hg. Common carotid artery peak systolic velocity: 84 cm/sec. Internal carotid artery peak systolic velocity: 107 cm/sec. Internal carotid artery end diastolic velocity: 43 cm/sec. External carotid artery peak systolic velocity: 60 cm/sec. ICA/CCA peak systolic ratio: 1.3 . Patton scale imaging description: Mild plaque Percent internal carotid artery stenosis: Less than 50% . Vertebral artery: Flow direction is antegrade. IMPRESSION: Less than 50% bilateral internal carotid artery stenosis. Dictated by: Preet Sanders [facility] Interpreted: Arnold Ramesh MD on 02/21/2022 at 12:23 Transcribed by: BRAN on 02/21/2022 at 12:24 Approved by: Arnold Ramesh M.D. on 02/21/2022 at 12:35
== END ==
PROVIDERS: PCP Physician Assistant; Referring Provider Physician Assistant; Visit Provider Physician Assistant
DX: I65.23 Occlusion and stenosis of bilateral carotid arteries (principal); E04.2 Nontoxic multinodular goiter; E03.9 Hypothyroidism, unspecified; R55 Syncope and collapse; R42 Dizziness and giddiness
CPT/HCPCS: 76536; 93880

== ENCOUNTER → 2022-03-29 10:42 | Outpatient (CLI) | payer OTHER, SELFPAY ==
[2021-12-02 17:09] VITALS: BMI 29.8
--- NOTE | 2022-03-29 10:43 | DI.RAD.S_ITS ---
PROCEDURE: XR KNEE RT 3V INDICATIONS: Knee injury. Fall, unable to flex the knee. TECHNIQUE: 3 views of the knee were acquired. COMPARISON: None. FINDINGS: Bones: No fractures or dislocations. No suspicious bony lesions. Mild patellofemoral compartment narrowing present. Soft tissues: Possible trace joint effusion. No suspicious soft tissue calcifications. IMPRESSION: 1. No acute fracture visualized. 2. Possible trace knee effusion. Dictated by: Cristiano Marte M.D. on 03/29/2022 at 11:41 Approved by: Cristiano Marte M.D. on 03/29/2022 at 11:47
== END ==
PROVIDERS: PCP Physician Assistant; Referring Provider Nurse Practitioner Family; Visit Provider Nurse Practitioner Family
DX: M25.561 Pain in right knee (principal)
CPT/HCPCS: 73562

== ENCOUNTER → 2022-04-21 12:43 | Outpatient (CLI) | payer OTHER, MEDICARE, SELFPAY ==
[2021-12-02 17:09] VITALS: BMI 29.8
[2022-04-21 13:27] LABS: COVID19 -Nasal RAPID Negative (Negative)
== END ==
PROVIDERS: PCP Physician Assistant; Visit Provider Student in an Organized Health Care Education/Training Program
DX: Z20.822 Contact with and (suspected) exposure to COVID-19 (principal)
CPT/HCPCS: 87635

== ENCOUNTER → 2022-05-22 13:25 | Outpatient (CLI) | payer OTHER, MEDICARE, SELFPAY ==
[2021-12-02 17:09] VITALS: BMI 29.8
[2022-05-22 15:26] LABS: COVID19 -Nasal RAPID Negative (Negative)
== END ==
PROVIDERS: PCP Physician Assistant; Visit Provider Student in an Organized Health Care Education/Training Program
DX: Z20.822 Contact with and (suspected) exposure to COVID-19 (principal)
CPT/HCPCS: 87635

== ENCOUNTER 2022-05-25 04:36 | Emergency (ER) | payer OTHER, MEDICARE, SELFPAY ==
[2021-12-02 17:09] VITALS: BMI 29.8
[2022-05-25] VITALS (9 sets, daily range): BP systolic 147–174; BP diastolic 67–103; PULSE 82–95; RESP 18–20; TEMP 36.4; O2SAT 94–96; BMI 31.1
--- NOTE | 2022-05-25 04:52 | DI.RAD.S_ITS ---
PROCEDURE: XR CHEST 1V INDICATIONS: shortness of breath TECHNIQUE: One view of the chest was acquired. COMPARISON: [facility], CR, XR CHEST 1V, 12/02/2021, 10:29. FINDINGS: Surgical changes and devices: None. Lungs and pleura: Lungs are clear. No pleural effusions or pneumothorax. Mediastinum: Mediastinal contours appear normal. Heart size is normal. The aorta is tortuous. Bones and chest wall: No suspicious bony lesions. Overlying soft tissues appear unremarkable. IMPRESSION: No acute cardiopulmonary abnormality. Dictated by: Yogi Kraft M.D. on 05/25/2022 at 8:10 Approved by: Yogi Kraft M.D. on 05/25/2022 at 8:11
[2022-05-25 05:17] LABS: Add Manual Diff / Slide Review NO; Basophils Absolute Auto 0 /uL (0-100); Basophils Percent Auto 0.6 % (0-2); Eosinophils Absolute Auto 0 /uL (0-450); Eosinophils Percent Auto 0.9 % (2-4); Hematocrit 37.2 % (36-46); Hemoglobin 12.8 g/dL (12.0-16.0); Lymphocytes Absolute Auto 1100 /uL (1100-4500); Lymphocytes Percent Auto 19.9 % (25-40); Mean Corpuscular HGB Conc 34.5 % (30-36); Mean Corpuscular Hemoglobin 31.2 PG (26-34); Mean Corpuscular Volume 90.5 fL (80-100); Monocytes Absolute Auto 600 /uL (0-900); Monocytes Percent Auto 11.6 % (3-14); Neutrophils Absolute Auto 3600 /uL (1500-7000); Platelet Count 184 X10^3/uL (150-400); Red Blood Cell Count 4.11 X10^6/uL (4.0-5.2); Red Cell Distribution Width 14.3 % (11.6-14.8); White Blood Cell Count 5.4 X10^3/uL (4.5-11.0)
[2022-05-25 05:19] LABS: Lactate (Lactic Acid) 0.8 mmol/L (0.7-2.1)
[2022-05-25 05:20] LABS: Alanine Aminotransferase 89 IU/L (<35); Albumin 4.1 g/dL (3.5-5.0); Albumin Globulin Ratio 1.3 (1.0-2.8); Alkaline Phosphatase 133 U/L (38-126); Aspartate Aminotransferase 61 IU/L (14-36); BUN Creatinine Ratio 24.6 (6-22); Bilirubin Total 0.4 mg/dL (0.2-1.3); Blood Urea Nitrogen 15 mg/dL (7-17); Calcium 8.8 mg/dL (8.4-10.2); Carbon Dioxide 25 mmol/L (22-32); Chloride 107 mmol/L (98-107); Estimated Glomerular Filt Rate > 60 mL/min (>60); Globulin 3.1 g/dL (1.7-4.1); Glucose 116 mg/dL (80-110); HEMOLYSIS < 15 (0-50); Potassium 3.7 mmol/L (3.4-5.1); Sodium 139 mmol/L (137-145); Total Protein 7.2 g/dL (6.3-8.2)
--- NOTE | 2022-05-25 05:21 | ED.SOB ---
HPI - SOB/Dyspnea General Chief Complaint: Shortness of Breath/Dyspnea Stated Complaint: low oxy level, + covid Time Seen by Provider: 05/25/22 05:13 Source: patient Mode of arrival: Ambulatory History of Present Illness HPI Narrative: Patient brought here by . tested positive for COVID yesterday. Patient's symptoms started 4 days ago with cough cold congestion and wheezing. She states she does not take asthma medication because she has it controlled very well. She went into a walk-in clinic 2 days ago and tested negative for COVID. However yesterday home test for COVID was positive. Patient has hoarse voice wheezing. No nausea vomiting diarrhea Related Data Home Medications Medication Instructions Recorded Confirmed amlodipine 10 mg tablet 10 mg PO DAILY 01/20/21 04/23/22 escitalopram oxalate 20 mg tablet 10 mg PO DAILY 01/20/21 04/23/22 (Lexapro) levothyroxine 75 mcg tablet 75 mcg PO DAILY 01/20/21 04/23/22 trazodone 50 mg PO QPM sleep 01/20/21 04/23/22 Allergies Allergy/AdvReac Type Severity Reaction Status Date / Time butorphanol [From Stadol] Allergy Verified 04/23/22 08:57 codeine Allergy Verified 04/23/22 08:57 shingrex AdvReac Unknown Hives Uncoded 04/23/22 08:57 Review of Systems Review of Systems Narrative: GENERAL: Positive chills, fatigue, malaise, fever, sweats. HEENT: Denies sinus pain, ear pain, positive sore throat RESPIRATORY: Positive dyspnea, cough CARDIOVASCULAR: Denies chest pain, palpitations GASTROINTESTINAL: Denies nausea, vomiting, abdominal pain : Denies dysuria, frequency, hematuria MUSCULOSKELETAL: denies muscle or bony pain SKIN: Denies rash, skin lesions NEUROLOGIC: Denies weakness, numbness ROS Unobtainable: All systems reviewed & are unremarkable except as noted in HPI and below Patient History Social History household members: spouse Smoking Status: Never smoker Smoking Status: Never smoker alcohol intake frequency: other Substance Use Type: does not use Exam Narrative Exam Narrative: GENERAL: in no distress, not toxic not dyspneic HEAD: Normocephalic. EYES: Pupils equal round No scleral icterus. ENT: Mucous membranes moist. NECK: Trachea midline. CARDIOVASCULAR: Regular rate and rhythm without murmurs RESPIRATORY: Equal lung sounds but bibasilar wheezing and rhonchi. Patient speaking near full sentences. Has hoarse voice GASTROINTESTINAL: Abdomen soft, non-tender EXTREMITIES: No gross deformities. BACK: No flank tenderness. NEURO: AOx4. SKIN: Warm and dry PSYCH: Not anxious, is cooperative Initial Vital Signs Initial Vital Signs: Vital Signs Blood Pressure 174/103 H 05/25/22 04:44 Course Course Course Narrative: No new issues during course of stay Orders Ordered: Discontinued Medications Albuterol (Albuterol Hfa Prepack) 1 box MISC SEEINSTR ONE Stop: 05/25/22 05:21 Last Admin: 05/25/22 05:28 Dose: 1 box Documented By: CAROLEE Dexamethasone (Dexamethasone 10 Mg/Ml Vial) 10 mg IV NOW ONE Stop: 05/25/22 06:30 Last Admin: 05/25/22 06:40 Dose: 10 mg Documented By: TIFFANY Reevaluation(s) Reevaluation #1: Patient resting much more comfortably. Respiratory therapist and patient states breathing treatment helped significantly. Re-examination improvement in wheezing and rhonchi. Patient states able to rest much easier now. She desires discharge home. Return precautions reviewed with her. Time: 06:28 Vital Signs Vital signs: Vital Signs - 8 hr 05/25/22 04:47 05/25/22 05:28 Temperature 97.6 F Pulse Rate 91 H 95 H Respiratory Rate 20 20 Blood Pressure 174/103 H Pulse Oximetry 96 96 Oxygen Delivery Method Room Air Room Air MDM - SOB/Dyspnea Differential Diagnosis Differential diagnosis: Likely acute exacerbation of chronic obstructive airways disease, congestive heart failure, community acquired pneumonia and asthma with exacerbation Lab Data Result diagrams: 05/25/22 04:57 05/25/22 04:57 Labs: Lab Results 05/25/22 05/25/22 05/25/22 Range/Units 04:57 04:57 04:57 WBC 5.4 (4.5-11.0) X10^3/uL RBC 4.11 (4.0-5.2) X10^6/uL Hgb 12.8 (12.0-16.0) g/dL Hct 37.2 (36-46) % MCV 90.5 (80-100) fL MCH 31.2 (26-34) PG MCHC 34.5 (30-36) % RDW 14.3 (11.6-14.8) % Plt Count 184 (150-400) X10^3/uL Neut % (Auto) 67.0 (50-75) % Lymph % (Auto) 19.9 L (25-40) % [place] % (Auto) 11.6 (3-14) % Eos % (Auto) 0.9 L (2-4) % Baso % (Auto) 0.6 (0-2) % Neut # (Auto) 3600 (6343-2806) /uL Lymph # (Auto) 1100 (4124-2609) /uL [place] # (Auto) 600 (0-900) /uL Eos # (Auto) 0 (0-450) /uL Baso # (Auto) 0 (0-100) /uL Sodium 139 (137-145) mmol/L Potassium 3.7 (3.4-5.1) mmol/L Chloride 107 (98-107) mmol/L Carbon Dioxide 25 (22-32) mmol/L BUN 15 (7-17) mg/dL Creatinine 0.61 (0.52-1.04) mg/dL Estimated GFR > 60 (>60) mL/min BUN/Creatinine Ratio 24.6 H (6-22) Glucose 116 H (80-110) mg/dL Lactate (0.7-2.1) mmol/L Calcium 8.8 (8.4-10.2) mg/dL Total Bilirubin 0.4 (0.2-1.3) mg/dL AST 61 H (14-36) IU/L ALT 89 H (<35) IU/L Alkaline Phosphatase 133 H (38-126) U/L Total Protein 7.2 (6.3-8.2) g/dL Albumin 4.1 (3.5-5.0) g/dL Globulin 3.1 (1.7-4.1) g/dL Albumin/Globulin Ratio 1.3 (1.0-2.8) SARS-CoV-2 (PCR) Positive H (Negative) 05/25/22 Range/Units 04:57 WBC (4.5-11.0) X10^3/uL RBC (4.0-5.2) X10^6/uL Hgb (12.0-16.0) g/dL Hct (36-46) % MCV (80-100) fL MCH (26-34) PG MCHC (30-36) % RDW (11.6-14.8) % Plt Count (150-400) X10^3/uL Neut % (Auto) (50-75) % Lymph % (Auto) (25-40) % [place] % (Auto) (3-14) % Eos % (Auto) (2-4) % Baso % (Auto) (0-2) % Neut # (Auto) (9866-2453) /uL Lymph # (Auto) (6607-8020) /uL [place] # (Auto) (0-900) /uL Eos # (Auto) (0-450) /uL Baso # (Auto) (0-100) /uL Sodium (137-145) mmol/L Potassium (3.4-5.1) mmol/L Chloride (98-107) mmol/L Carbon Dioxide (22-32) mmol/L BUN (7-17) mg/dL Creatinine (0.52-1.04) mg/dL Estimated GFR (>60) mL/min BUN/Creatinine Ratio (6-22) Glucose (80-110) mg/dL Lactate 0.8 (0.7-2.1) mmol/L Calcium (8.4-10.2) mg/dL Total Bilirubin (0.2-1.3) mg/dL AST (14-36) IU/L ALT (<35) IU/L Alkaline Phosphatase (38-126) U/L Total Protein (6.3-8.2) g/dL Albumin (3.5-5.0) g/dL Globulin (1.7-4.1) g/dL Albumin/Globulin Ratio (1.0-2.8) SARS-CoV-2 (PCR) (Negative) Imaging Data Chest x-ray: Radiologist's Impression: No acute cardiopulmonary abnormality is identified ECG Data Interpretation: Normal sinus rhythm rate [address] elevation or depression MDM Narrative Medical decision making narrative: Appropriate for discharge home. Exam and laboratory studies and imaging are reassuring. Not requiring supplemental oxygen. No pneumonia on chest x-ray. Significant improvement with inhaler. Return precautions reviewed with patient. She desires discharge home. Discharge Plan Departure Patient Disposition: Home Clinical Impression: Acute bronchitis due to COVID-19 virus, Asthma exacerbation Instructions: DI for Asthma -- Adult, DI for COVID-19 (Suspected or Confirmed ) Activity Restrictions/Additional Instructions: See family doctor next week for re-evaluation. Be sure to quarantine 10 days from 1st day of symptoms of COVID. Use inhaler 2 puffs every 4 hours as needed for asthma. Keep well hydrated. Return if worse if any questions or concerns or if any trouble breathing Prescriptions: No Action levothyroxine 75 mcg tablet 75 mcg PO DAILY escitalopram oxalate [Lexapro] 20 mg tablet 10 mg PO DAILY amlodipine 10 mg tablet 10 mg PO DAILY trazodone 50 mg PO QPM Referrals: Cayla Lilly PA-C [Primary Care Provider] - Visit Report Forms: Patient Portal/API
[2022-05-25 05:27] LABS: COVID19 -Nasal RAPID POSITIVE (Negative)
[2022-05-25] MEDS: ALBUTEROL HFA PREPACK 1 BOX MISC (05:28)
[2022-05-25] MEDS: DEXAMETHASONE 10 MG/ML VIAL IV (06:40)
== END 2022-05-25 07:12 | disposition home or self-care (01) ==
PROVIDERS: Emergency Provider Emergency Medicine; PCP Physician Assistant
DX: U07.1 COVID-19 (principal); J20.8 Acute bronchitis due to other specified organisms; J45.901 Unspecified asthma with (acute) exacerbation; Z20.822 Contact with and (suspected) exposure to COVID-19
CPT/HCPCS: 36415; 71045; 80053; 83605; 85025; 87635; 93005; 94640; 96374; 99284; C9803; J1100

== ENCOUNTER 2022-06-03 14:22 | Emergency (ER) | payer OTHER, MEDICARE, SELFPAY ==
[2021-12-02 17:09] VITALS: BMI 29.8
[2022-06-03] VITALS (14 sets, daily range): BP systolic 129–151; BP diastolic 60–75; PULSE 69–82; RESP 12–24; TEMP 37.3; O2SAT 92–100
--- NOTE | 2022-06-03 14:43 | DI.RAD.S_ITS ---
PROCEDURE: XR CHEST 2V INDICATIONS: shortness of breath TECHNIQUE: 2 views of the chest were acquired. COMPARISON: [facility], CR, XR CHEST 1V, 05/25/2022, 5:18. FINDINGS: Surgical changes and devices: None. Lungs and pleura: Lungs are clear. No pleural effusions or pneumothorax. Prominent vascularity and interstitial markings. Mediastinum: Mediastinal contours are normal. Heart size is enlarged. Bones and chest wall: No suspicious bony abnormalities. Soft tissues appear unremarkable. IMPRESSION: Cardiomegaly and interstitial prominence is concerning for pulmonary edema. Dictated by: Damon Lindquist M.D. on 06/03/2022 at 14:16 Approved by: Damon Lindquist M.D. on 06/03/2022 at 14:17
[2022-06-03 14:55] LABS: Add Manual Diff / Slide Review NO; Basophils Absolute Auto 0 /uL (0-100); Basophils Percent Auto 0.6 % (0-2); Eosinophils Absolute Auto 100 /uL (0-450); Eosinophils Percent Auto 2.3 % (2-4); Hematocrit 38.9 % (36-46); Hemoglobin 13.6 g/dL (12.0-16.0); Lymphocytes Absolute Auto 1600 /uL (1100-4500); Lymphocytes Percent Auto 33.1 % (25-40); Mean Corpuscular Hemoglobin 31.2 PG (26-34); Mean Corpuscular Volume 89.1 fL (80-100); Monocytes Absolute Auto 500 /uL (0-900); Monocytes Percent Auto 9.3 % (3-14); Neutrophils Absolute Auto 2700 /uL (1500-7000); Neutrophils Percent Auto 54.7 % (50-75); Platelet Count 267 X10^3/uL (150-400); Red Blood Cell Count 4.36 X10^6/uL (4.0-5.2); Red Cell Distribution Width 13.8 % (11.6-14.8)
[2022-06-03 14:56] LABS: Alanine Aminotransferase 28 IU/L (<35); Albumin Globulin Ratio 1.2 (1.0-2.8); Alkaline Phosphatase 108 U/L (38-126); Aspartate Aminotransferase 27 IU/L (14-36); BUN Creatinine Ratio 25.4 (6-22); Bilirubin Total 0.8 mg/dL (0.2-1.3); Blood Urea Nitrogen 16 mg/dL (7-17); Calcium 8.9 mg/dL (8.4-10.2); Carbon Dioxide 23 mmol/L (22-32); Chloride 108 mmol/L (98-107); Estimated Glomerular Filt Rate > 60 mL/min (>60); Globulin 3.4 g/dL (1.7-4.1); Glucose 127 mg/dL (80-110); HEMOLYSIS < 15 (0-50); Potassium 3.5 mmol/L (3.4-5.1); Sodium 139 mmol/L (137-145); Total Protein 7.4 g/dL (6.3-8.2)
[2022-06-03 14:57] LABS: Lactate (Lactic Acid) 1.3 mmol/L (0.7-2.1)
--- NOTE | 2022-06-03 15:13 | ED.SOB ---
HPI - SOB/Dyspnea General Chief Complaint: Shortness of Breath/Dyspnea Stated Complaint: Post COVID, Not Getting Better Time Seen by Provider: 06/03/22 15:12 Source: patient Mode of arrival: Wheelchair Limitations: no limitations History of Present Illness HPI Narrative: 71-year-old female with history of asthma/reactive airway disease, hypertension, anxiety/depression and recent COVID infection who presents comes emergency department with complaint of increasing shortness of breath and persistent cough. Patient states she had symptoms onset about 10-12 days ago, she was seen here 05/25/2022 and received dexamethasone breathing treatment which was quite helpful for several days and then has had increasing cough and shortness of breath along with fatigue dyspnea on exertion. Patient denies any syncope. Denies any chest pain or shortness of breath. Denies any nausea or vomiting. Denies any diarrhea constipation. No swelling of extremities. Patient has had a prior hysterectomy, bilateral oophorectomy and appendectomy. Tobacco, occasional alcohol, no illicit. Patient notes she had had COVID immunizations as well as a single booster was approximately august in 2020. Related Data Home Medications Medication Instructions Recorded Confirmed amlodipine 10 mg tablet 10 mg PO DAILY 01/20/21 06/03/22 escitalopram oxalate 20 mg tablet 10 mg PO DAILY 01/20/21 06/03/22 (Lexapro) levothyroxine 75 mcg tablet 75 mcg PO DAILY 01/20/21 06/03/22 trazodone 50 mg PO QPM sleep 01/20/21 06/03/22 Previous Rx's Medication Instructions Recorded prednisone 10 mg tablets in a dose See Rx Instructions .Route 06/03/22 pack .COMPLEX #15 ea Allergies Allergy/AdvReac Type Severity Reaction Status Date / Time butorphanol [From Stadol] Allergy Verified 06/03/22 14:03 codeine Allergy Verified 06/03/22 14:03 shingrex AdvReac Unknown Hives Uncoded 06/03/22 14:03 Review of Systems Review of Systems ROS Unobtainable: All systems reviewed & are unremarkable except as noted in HPI and below Patient History Social History household members: spouse Smoking Status: Never smoker Smoking Status: Never smoker alcohol intake frequency: other Substance Use Type: does not use Exam Narrative Exam Narrative: GENERAL: Alert and oriented x three, female in mild distress. HEENT: Head normocephalic, atraumatic, EOMI, pupils reactive, face symmetric, moist mucous membranes NECK: Supple, full range of motion CARDIOVASCULAR: Regular rate and rhythm without murmurs, rubs or gallops. JVD. No swelling bilateral lower extremities. RESPIRATORY: Breath sounds equal bilaterally, no wheezes rales or rhonchi. No crackles, mild tachypnea. No accessory muscle use. Patient has a hacking dry cough. ABDOMEN: Soft, nontender. Normoactive bowel sounds all 4 quadrants. No guarding or rebound, rigidity, no mass : No CVA tenderness EXTREMITIES: Normal range of motion, no clubbing or edema. Neurovascularly intact NEUROLOGICAL: Cranial nerves II through XII grossly intact. Moving all extremities SKIN: Warm, dry, no petechiae, no rashes or lesions. Initial Vital Signs Initial Vital Signs: Vital Signs Temperature 99.2 F 06/03/22 14:39 Pulse Rate 74 06/03/22 14:39 Respiratory Rate 24 06/03/22 14:39 Blood Pressure 138/75 06/03/22 14:39 Pulse Oximetry 92 06/03/22 14:39 Oxygen Delivery Method 06/03/22 14:39 Course Orders Ordered: ED Orders 06/03/22 14:35 BNP [NT-proBNP (BNP-Adult 18+)] Stat Complete Blood Count AUTO DIFF Stat Comprehensive Metabolic Panel Stat D Dimer Stat Lactate (Lactic Acid) Stat Troponin & CK Cardiac Panel Stat 06/03/22 14:43 XR chest 2V Stat Measure peak expiratory flow ONCE RT Consult Eval and Treat Now 06/03/22 14:51 EKG-12 Lead Stat 06/03/22 16:22 CT angio chest PE protocol Stat Discontinued Medications Albuterol (Albuterol Hfa Mdi 60 Puff/8 Gm Inhaler) 8 puff INH NOW ONE Stop: 06/03/22 15:31 Last Admin: 06/03/22 15:40 Dose: 8 puff Documented By: SB Dexamethasone (Dexamethasone 10 Mg/Ml Vial) 10 mg IV NOW ONE Stop: 06/03/22 15:27 Last Admin: 06/03/22 15:40 Dose: 10 mg Documented By: SB Furosemide (Furosemide 40 Mg/4 Ml Vial) 40 mg IV NOW ONE Stop: 06/03/22 15:31 Last Admin: 06/03/22 15:40 Dose: 40 mg Documented By: MELISSA Prednisone (Prednisone 20 Mg Prepack) 1 bottle MIS SEEINSTR ONE Stop: 06/03/22 18:47 Last Admin: 06/03/22 18:59 Dose: 1 bottle Documented By: MELISSA Reevaluation(s) Reevaluation #1: Patient appears much improved after albuterol inhaler as well as steroids. She states immediately after the inhaler had minimal improvement feels a steroids or probably more helpful. She has not had any additional interventions besides a dose of Lasix. Vital Signs Vital signs: Vital Signs - 8 hr 06/03/22 14:39 06/03/22 15:55 06/03/22 15:12 Temperature 99.2 F Pulse Rate 74 77 Respiratory Rate 24 Blood Pressure 138/75 Pulse Oximetry 92 100 98 Oxygen Delivery Method Room Air Room Air Oxygen Flow Rate 06/03/22 15:56 06/03/22 15:56 06/03/22 16:00 Temperature Pulse Rate 70 69 Respiratory Rate Blood Pressure 151/67 H Pulse Oximetry 99 99 Oxygen Delivery Method Oxygen Flow Rate 06/03/22 16:01 06/03/22 16:01 06/03/22 16:30 Temperature Pulse Rate 71 Respiratory Rate Blood Pressure 133/61 133/70 Pulse Oximetry 95 Oxygen Delivery Method Oxygen Flow Rate 06/03/22 16:30 06/03/22 17:00 06/03/22 17:30 Temperature Pulse Rate 73 73 74 Respiratory Rate 13 12 Blood Pressure Pulse Oximetry 96 95 93 Oxygen Delivery Method Room Air Room Air Oxygen Flow Rate 0 0 06/03/22 18:02 06/03/22 18:03 06/03/22 18:03 Temperature Pulse Rate 82 82 Respiratory Rate Blood Pressure 141/75 H Pulse Oximetry 96 100 Oxygen Delivery Method Oxygen Flow Rate 06/03/22 18:30 06/03/22 19:00 06/03/22 19:00 Temperature Pulse Rate 72 72 Respiratory Rate 12 15 Blood Pressure 129/60 Pulse Oximetry 93 95 Oxygen Delivery Method Oxygen Flow Rate MDM - SOB/Dyspnea Lab Data Result diagrams: 06/03/22 14:35 06/03/22 14:35 Labs: Lab Results 06/03/22 06/03/22 06/03/22 Range/Units 14:35 14:35 14:35 WBC 5.0 (4.5-11.0) X10^3/uL RBC 4.36 (4.0-5.2) X10^6/uL Hgb 13.6 (12.0-16.0) g/dL Hct 38.9 (36-46) % MCV 89.1 (80-100) fL MCH 31.2 (26-34) PG MCHC 35.0 (30-36) % RDW 13.8 (11.6-14.8) % Plt Count 267 (150-400) X10^3/uL Neut % (Auto) 54.7 (50-75) % Lymph % (Auto) 33.1 (25-40) % [place] % (Auto) 9.3 (3-14) % Eos % (Auto) 2.3 (2-4) % Baso % (Auto) 0.6 (0-2) % Neut # (Auto) 2700 (7595-6930) /uL Lymph # (Auto) 1600 (9525-5616) /uL [place] # (Auto) 500 (0-900) /uL Eos # (Auto) 100 (0-450) /uL Baso # (Auto) 0 (0-100) /uL D-Dimer (<500) ng/ml Sodium 139 (137-145) mmol/L Potassium 3.5 (3.4-5.1) mmol/L Chloride 108 H (98-107) mmol/L Carbon Dioxide 23 (22-32) mmol/L BUN 16 (7-17) mg/dL Creatinine 0.63 (0.52-1.04) mg/dL Estimated GFR > 60 (>60) mL/min BUN/Creatinine Ratio 25.4 H (6-22) Glucose 127 H (80-110) mg/dL Lactate 1.3 (0.7-2.1) mmol/L Calcium 8.9 (8.4-10.2) mg/dL Total Bilirubin 0.8 (0.2-1.3) mg/dL AST 27 (14-36) IU/L ALT 28 (<35) IU/L Alkaline Phosphatase 108 (38-126) U/L Total Creatine Kinase (30-135) U/L CK-MB (CK-2) CK-MB (CK-2) Rel Index Troponin I (0.01-0.034) ng/mL NT-Pro-B Natriuret Pep (<125) pg/mL Total Protein 7.4 (6.3-8.2) g/dL Albumin 4.0 (3.5-5.0) g/dL Globulin 3.4 (1.7-4.1) g/dL Albumin/Globulin Ratio 1.2 (1.0-2.8) 06/03/22 06/03/22 Range/Units 14:35 14:35 WBC (4.5-11.0) X10^3/uL RBC (4.0-5.2) X10^6/uL Hgb (12.0-16.0) g/dL Hct (36-46) % MCV (80-100) fL MCH (26-34) PG MCHC (30-36) % RDW (11.6-14.8) % Plt Count (150-400) X10^3/uL Neut % (Auto) (50-75) % Lymph % (Auto) (25-40) % [place] % (Auto) (3-14) % Eos % (Auto) (2-4) % Baso % (Auto) (0-2) % Neut # (Auto) (0193-5733) /uL Lymph # (Auto) (5838-4755) /uL [place] # (Auto) (0-900) /uL Eos # (Auto) (0-450) /uL Baso # (Auto) (0-100) /uL D-Dimer 752 H (<500) ng/ml Sodium (137-145) mmol/L Potassium (3.4-5.1) mmol/L Chloride (98-107) mmol/L Carbon Dioxide (22-32) mmol/L BUN (7-17) mg/dL Creatinine (0.52-1.04) mg/dL Estimated GFR (>60) mL/min BUN/Creatinine Ratio (6-22) Glucose (80-110) mg/dL Lactate (0.7-2.1) mmol/L Calcium (8.4-10.2) mg/dL Total Bilirubin (0.2-1.3) mg/dL AST (14-36) IU/L ALT (<35) IU/L Alkaline Phosphatase (38-126) U/L Total Creatine Kinase < 20 L (30-135) U/L CK-MB (CK-2) TNP CK-MB (CK-2) Rel Index TNP Troponin I < 0.012 (0.01-0.034) ng/mL NT-Pro-B Natriuret Pep 58 (<125) pg/mL Total Protein (6.3-8.2) g/dL Albumin (3.5-5.0) g/dL Globulin (1.7-4.1) g/dL Albumin/Globulin Ratio (1.0-2.8) Imaging Data Chest x-ray: Radiologist's Impression: [address] [address] XRay Report Signed Patient: Aggie Purvis MR#: [id number] : 1950 Acct:[id number] Age/Sex: 71 / F Date of Service: 06/03/22 Loc: ED Accession Number: [id number] ?? Procedure: XR chest 2V Ordering Provider: Edie Smith D.O. PROCEDURE:? XR CHEST 2V ? INDICATIONS:? shortness of breath ? TECHNIQUE:? 2 views of the chest were acquired.? ? COMPARISON:? [facility], CR, XR CHEST 1V, 05/25/2022, 5:18. ? FINDINGS:? ? Surgical changes and devices:? None.? ? Lungs and pleura:? Lungs are clear.? No pleural effusions or pneumothorax.? Prominent vascularity and interstitial markings. ? Mediastinum:? Mediastinal contours are normal.? Heart size is enlarged.? ? Bones and chest wall:? No suspicious bony abnormalities.? Soft tissues appear unremarkable.? ? IMPRESSION:? Cardiomegaly and interstitial prominence is concerning for pulmonary edema.? Dictated by: Damon Lindquist M.D. on 06/03/2022 at 14:16 ? ? Approved by: Damon Lindquist M.D. on 06/03/2022 at 14:1 CT scan - chest: Radiologist's Impression: [address] [address] ReportSigned Patient: Henrique DelvalleMR#: [id number]: 11/02/1965Acct:[id number]/Sex: 56 / MDate of Service: 06/03/22Loc: EDAccession Number: [id number]? ? Procedure: XR chest 1V Ordering Provider: Edie Smith D.O. PROCEDURE:? XR CHEST 1V ? INDICATIONS:? chest pain ? TECHNIQUE:? One view of the chest was acquired.? ? COMPARISON:? [facility], CR, XR CHEST 1V, 05/12/2022, 16:53. ? FINDINGS:? ? Surgical changes and devices:? None.? ? Lungs and pleura:? Lungs are clear.? No pleural effusions or pneumothorax.? ? Mediastinum:? Mediastinal contours appear normal.? Heart size is normal.? ? Bones and chest wall:? No suspicious bony lesions.? Overlying soft tissues appear unremarkable.? ? IMPRESSION:? No acute cardiopulmonary findings. ? ? Dictated by: Damon Lindquist M.D. on 06/03/2022 at 14:05? ?? Approved by: Damon Lindquist M.D. on 06/03/2022 at 14:08?? ECG Data Attestation: I personally reviewed and interpreted this ECG as follows: Prior ECG tracings: available for review Interpretation: Sinus rhythm rate 81 WI 184 QRS 82 and QTC of 427. Q-wave in 3 and AVF. No elevation or depression patient has prior from 05/25/2022 which appears similar. [facility] Narrative Medical decision making narrative: 1-year-old female with known history of hypertension, hypothyroidism and reactive airway patient states she only really has symptoms with reactive airway/asthma when she is had a recent illness she was tested positive for COVID in the last week and a half and has had persistent symptoms she was seen was given a dose of oral steroids which was quite helpful patient states. She is been using her inhaler at home which is helpful for only a short period of time and then starts to feel tight have pretty significant cough. Denies fevers, no syncope, no other red flag symptoms but patient is somewhat higher risk for blood clot so D-dimer was obtained was slightly elevated, troponin and BNP are normal, chest x-ray showed possible pulmonary edema but CT PE scan shows changes consistent with COVID pneumonia, no pulmonary emboli, no bacterial or suspected pulmonary edema. Patient does seem to be quite responsive to albuterol with additional dose of steroid will treat her as reactive airway disease with both of these. Return precautions patient has a home pulse ox. She also has nebulizer home with plenty of albuterol inhaler with spacer. Return precautions discussed. Discharge Plan Departure Patient Disposition: Home Clinical Impression: Pneumonia due to 2019 novel coronavirus Instructions: DI for COVID-19 (Suspected or Confirmed ) Activity Restrictions/Additional Instructions: Follow up at your appointment on Saturday. Your COVID infection does show some changes to your lungs but no blood clots or changes requiring antibiotics. You can use albuterol up to 8 puffs every 4 hours as needed or albuterol nebulized every 4 hours as needed. You can take 60mg prednisone tomorrow morning, then start your prescription at [facility] on Saturday. I would also give you a prescription for tapering dose of prednisone which may be helpful for any reactive airway component. Prescription sent to [facility] in [place]. Please return if you are feeling worse, if your O2 sat is less than 90% on her home pulse ox, increasing chest pain, shortness of breath, passing out, new swelling in her extremities or other new or concerning symptoms. Prescriptions: New prednisone 10 mg tablets,dose pack See Rx Instructions .ROUTE .COMPLEX Qty: 15 0RF Rx Instructions: Take 5 tablets p.o. x1 day, then 4 tablets p.o. x1 day, 3 tablets p.o. x1 day, then 2 tablets p.o. x1 day, then 1 tablet p.o. x1 day No Action levothyroxine 75 mcg tablet 75 mcg PO DAILY escitalopram oxalate [Lexapro] 20 mg tablet 10 mg PO DAILY amlodipine 10 mg tablet 10 mg PO DAILY trazodone 50 mg PO QPM Referrals: Cayla Lilly PA-C [Primary Care Provider] -
[2022-06-03 15:37] LABS: Creatine Kinase < 20 U/L (30-135)
[2022-06-03 15:39] LABS: D Dimer 752 ng/ml (<500)
[2022-06-03] MEDS: ALBUTEROL HFA MDI 60 PUFF/8 GM INHALER 8 PUFF INH (15:40)
[2022-06-03] MEDS: DEXAMETHASONE 10 MG/ML VIAL IV (15:40)
[2022-06-03] MEDS: FUROSEMIDE 40 MG/4 ML VIAL IV (15:40)
[2022-06-03 15:50] LABS: NT-proBNP (BNP-Adult 18+) 58 pg/mL (<125); Troponin I < 0.012 ng/mL (0.01-0.034)
--- NOTE | 2022-06-03 16:22 | DI.CT.S_ITS ---
PROCEDURE: CT ANGIO CHEST PE PROTOCOL INDICATIONS: + covid day 12, increasing sob, TECHNIQUE: After the administration of intravenous contrast, 2 mm thick sections acquired from the pulmonary apices to the posterior costophrenic angles. 3-dimensional maximum intensity projection (MIP) coronal and sagittal reformats were then acquired through the thorax. For radiation dose reduction, the following was used: automated exposure control, adjustment of mA and/or kV according to patient size. COMPARISON: [facility], , THYROID, 02/21/2022, 11:34. FINDINGS: Image quality: Excellent. Pulmonary arteries: Pulmonary arteries are normal in size, and demonstrate no intraluminal filling defects to suggest central pulmonary embolism. Lungs and pleura: Scattered peripheral ground-glass opacities with a slight nodular component. No pleural effusions or pneumothorax. Central and peripheral airways are patent. Mediastinum: Heart size is normal, without pericardial effusion. No mediastinal or hilar adenopathy. Thoracic aorta is normal in caliber and enhancement. Esophagus is normal in caliber, without hiatal hernia. Bones and chest wall: No suspicious bony lesions. Ribs and thoracic spine appear intact throughout. Thyroid gland 2 cm left thyroid nodule. No axillary or supraclavicular adenopathy. Abdomen: Visualized upper abdominal solid organs appear normal in the early arterial phase of enhancement. IMPRESSION: 1. No pulmonary embolus. 2. Peripheral ground-glass opacities consistent with reported covered. Dictated by: Damon Lindquist M.D. on 06/03/2022 at 16:41 Approved by: Damon Lindquist M.D. on 06/03/2022 at 16:47
--- NOTE | 2022-06-03 18:00 | PC.NURSE ---
Ambulation trial per provider request. Pt walked about 4 minutes in her room with this RN at bedside. He oxygen stayed at our above 94%. Pt report some lightheadedness at the end that came on with coughing. Provider made aware of trial.
[2022-06-03] MEDS: predniSONE 20 MG PREPACK 1 BOTTLE MISC (18:59)
== END 2022-06-03 19:22 | disposition home or self-care (01) ==
PROVIDERS: Emergency Provider Emergency Medicine; PCP Physician Assistant
DX: U07.1 COVID-19 (principal); J12.82 Pneumonia due to coronavirus disease 2019; R07.9 Chest pain, unspecified
CPT/HCPCS: 36415; 71046; 71275; 80053; 82550; 83605; 83880; 84484; 85025; 85379; 93005; 93010; 96374; 96375; 99284; A9270; J1100; J1940; Q9967

== ENCOUNTER → 2022-11-06 12:39 | Outpatient (CLI) | payer OTHER, SELFPAY ==
[2021-12-02 17:09] VITALS: BMI 29.8
--- NOTE | 2022-11-06 | DI.RAD.S_ITS ---
PROCEDURE: XR KNEE RT 3V INDICATIONS: right knee pain TECHNIQUE: 3 views of the knee were acquired. COMPARISON: [facility], , XR KNEE RT 3V, 03/29/2022, 10:31. FINDINGS: Bones: No fractures or dislocations. No suspicious bony lesions. Mild tricompartmental osteoarthritic degenerative changes. Soft tissues: No joint effusion. No suspicious soft tissue calcifications. IMPRESSION: Mild tricompartmental osteoarthritis. Dictated by: Estefany Valentin MD, PhD on 11/06/2022 at 14:06 Approved by: Estefany Valentin MD, PhD on 11/06/2022 at 14:07
== END ==
PROVIDERS: PCP Physician Assistant; Referring Provider Physician Assistant; Visit Provider Physician Assistant
DX: M25.561 Pain in right knee (principal); M17.11 Unilateral primary osteoarthritis, right knee
CPT/HCPCS: 73562

== ENCOUNTER → 2022-11-21 12:41 | Outpatient (CLI) | payer OTHER, SELFPAY ==
[2021-12-02 17:09] VITALS: BMI 29.8
--- NOTE | 2022-11-21 | DI.RAD.S_ITS ---
PROCEDURE: XR DEXA AXIAL SKELETON INDICATIONS: OSTEOPOROSIS SCREENING COMPARISON: [facility], CR, XR DEXA AXIAL SKELETON, 12/09/2020, 14:02. FINDINGS: This blank DEXA report has been sent in error by the PACS system. The correct and complete report will be forthcoming in 1-2 days. Thank you for your patience and understanding. Dictated by: Cal Montgomery M.D. on 11/21/2022 at 16:14 Approved by: Cal Montgomery M.D. on 11/21/2022 at 16:14
== END ==
PROVIDERS: PCP Physician Assistant; Referring Provider Physician Assistant; Visit Provider Physician Assistant
DX: M81.0 Age-related osteoporosis without current pathological fracture (principal); Z78.0 Asymptomatic menopausal state; Z79.83 Long term (current) use of bisphosphonates; Z92.241 Personal history of systemic steroid therapy; Z90.710 Acquired absence of both cervix and uterus
CPT/HCPCS: 77080

== ENCOUNTER 2023-01-03 08:20 | Day surgery (SDC) | payer OTHER, SELFPAY ==
[2021-12-02 17:09] VITALS: BMI 29.8
[2023-01-03 08:45] VITALS: BMI 31.6
[2023-01-03] MEDS: LACTATED RINGERS 1,000 ML 42 ML IV (09:01)
--- NOTE | 2023-01-03 09:43 | P.HP_ITS ---
History of Present Illness History of Present Illness Date Patient Seen: 01/03/23 Time Patient Seen: 09:44 Chief complaint: Screening Colonoscopy Narrative: last colonoscopy over 10 years ago. had a bleeding hemorrhoid last month. No significant family history PFSH Medical History Obstructive sleep apnea of adult Social History household members: spouse Smoking Status: Never smoker Meds Home Medications and Allergies Home Medications Medication Instructions Recorded Confirmed Type amlodipine 10 mg tablet 10 mg PO DAILY 01/20/21 01/03/23 History escitalopram oxalate 20 mg tablet 10 mg PO DAILY 01/20/21 01/03/23 History (Lexapro) levothyroxine 75 mcg tablet 75 mcg PO DAILY 01/20/21 01/03/23 History trazodone 50 mg PO QPM sleep 01/20/21 01/03/23 History cetirizine 10 mg capsule (All Day 10 mg PO DAILY PRN Allergic 06/20/22 01/03/23 History Allergy (cetirizine)) Symptoms meloxicam 15 mg tablet 15 mg PO DAILY 01/03/23 01/03/23 History omega 1-qfe-ryl-fish oil 1,000 mg 1 cap PO DAILY 01/03/23 01/03/23 History (120 mg-180 mg) capsule (Fish Oil) Allergies Allergy/AdvReac Type Severity Reaction Status Date / Time butorphanol [From Stadol] Allergy Verified 01/03/23 08:36 codeine Allergy Verified 01/03/23 08:36 shingrex AdvReac Unknown Hives Uncoded 06/20/22 08:59 Review of Systems Review of Systems ROS: Yes All systems reviewed with the patient and are negative except as otherwise documented Exam Const General: cooperative and healthy appearing [facility] Head: normocephalic and atraumatic Face and sinus: normal facial exam Eyes Sclera: sclerae normal Neck Neck: trachea midline Resp Effort & Inspection: normal respiratory effort and able to speak in complete sentences Cardio Rate: regular rate Rhythm: regular rhythm GI Palpation: soft Skin General: turgor normal and atrophy Neuro General: patient alert, patient awake and patient oriented x3 Cognition: normal cognition Psych Appearance: grossly normal Judgment: judgment good Assessment & Plan Assessment & Plan narrative: Bright red blood per rectum Plan: colonoscopy with MAC Time Spent With Patient Time with patient: less than 30 minutes
--- NOTE | 2023-01-03 09:50 | PM.OP.COLON ---
Operative Date/Time/Diagnoses Date of procedure: 01/03/23 Time of procedure: 09:55 Pre-op diagnosis: BRBPR Post-op diagnosis: same Procedure & Clinicians Study performed: colonoscopy with MAC Same procedure as scheduled: Yes Indications: BRBPR Surgeon: Seda Ramirez Procedure Notes Procedure in detail: Preop diagnosis: Bright red blood per rectum Postop diagnosis: Same Operative procedure: Colonoscopy with MAC Surgeon: Denise Ramirez MD Findings: Small and large diverticulosis of the sigmoid colon. No polyps identified. Grade 2 internal hemorrhoids Procedure: Patient placed in lateral position. Rectal exam performed showing normal tone no masses. Colonoscope was inserted into the rectum and advanced to ileocecal valve with minimal difficulty. Insufflation and extraction of the scope and the above findings. Impression: Small and large diverticulosis of the sigmoid colon. Grade 2 hemorrhoids. No polyps Plan: Repeat colonoscopy in 10 years unless otherwise indicated by change in clinical condition Findings: divertiulosis Specimen(s): none sent Complications: none Post-procedure Recommendations: Colonoscopy in 10 years Follow up: as needed Disposition: PACU
[2023-01-03 10:11] VITALS: BP 142/75; PULSE 69; RESP 16; TEMP 36.2; O2SAT 98
[2023-01-03 10:17] VITALS: BP 135/77; PULSE 69; RESP 16; TEMP 36.2; O2SAT 100
[2023-01-03 10:24] VITALS: BP 135/72; PULSE 67; RESP 16; TEMP 36.8; O2SAT 100
[2023-01-03 10:30] VITALS: BP 134/72; PULSE 63; RESP 16; O2SAT 99
[2023-01-03 10:47] VITALS: BP 134/77; PULSE 65; RESP 16; TEMP 36.8; O2SAT 98
== END 2023-01-03 10:55 | disposition home or self-care (01) ==
PROVIDERS: Surgery; Family Provider Physician Assistant; PCP Physician Assistant; Referring Provider Surgery; Visit Provider Surgery
PROC: 0DJD8ZZ Inspection of Lower Intestinal Tract, Via Natural or Artificial Opening Endoscopic (ICD-10-PCS; CPT 45378; principal; 2023-01-03 10:45)
DX: K62.5 Hemorrhage of anus and rectum (principal); K57.30 Diverticulosis of large intestine without perforation or abscess without bleeding; K64.1 Second degree hemorrhoids
CPT/HCPCS: 45378; J2704

== ENCOUNTER → 2023-02-01 12:09 | Outpatient (CLI) | payer OTHER, SELFPAY ==
[2023-02-01 11:02] VITALS: BMI 29.8
--- NOTE | 2023-02-01 12:43 | DI.RAD.S_ITS ---
PROCEDURE: XR CHEST 2V INDICATIONS: productive cough, wheeze, hx pneumonia TECHNIQUE: 2 views of the chest were acquired. COMPARISON: [facility], XR CHEST 2V, 06/03/2022, 14:45. FINDINGS: Surgical changes and devices: None. Lungs and pleura: Lungs are clear. No pleural effusions or pneumothorax. Mediastinum: Mediastinal contours are normal. Heart size is prominent. Bones and chest wall: No suspicious bony abnormalities. Soft tissues appear unremarkable. IMPRESSION: No source for cough identified radiographically. Dictated by: Preet Sanders RRA Interpreted: Janet Mora MD on 02/01/2023 at 13:02 Transcribed by: ALLEN on 02/01/2023 at 13:03 Approved by: Janet Mora M.D. on 02/01/2023 at 15:51
== END ==
PROVIDERS: Family Provider Physician Assistant; PCP Physician Assistant; Referring Provider Family Medicine; Visit Provider Family Medicine
DX: R05.8 Other specified cough (principal); J18.9 Pneumonia, unspecified organism
CPT/HCPCS: 71046; 87070; 87205

== ENCOUNTER 2023-04-03 16:30 | Outpatient (RCR) | payer OTHER, SELFPAY ==
[2021-12-02 17:09] VITALS: BMI 29.8
[2023-02-01 11:02] VITALS: BMI 29.8
--- NOTE | 2023-02-27 14:45 | PT.OPPOC ---
Physical, Occupational & Speech Therapy At [facility] Current Diagnoses Pain in right knee (02/27/23) Low back pain, unspecified (02/27/23) Muscle weakness (generalized) (02/27/23) Age-related osteoporosis without current pathological fracture (02/27/23) Other fatigue (02/27/23) Visit Care Team Role Provider Type Shawna Johnston PA-C Family Provider Advanced Senior Health Consultant Primary Care Provider Specialty: Medical Address: [address] [place] [address], [id number] Email: David Dominguez MD Attending Provider Physician Referring Provider Specialty: Internal Medicine Address: [address] [place], [place] [address], [place], [address] Email: Plan Of Care PT-OP-T Assessment and Plan Start: 02/27/23 17:48 Freq: Status: Active Protocol: Document 02/27/23 14:00 DCW (Rec: 02/28/23 12:37 DCW [id number]) Physical Therapy Assessment Rehab Potential Rehabilitation Potential Good Evaluation Complexity Number of Personal Factors/Comorbidities 3 or More Number of Body Systems Impaired 4 or More Clinical Presentation at Evaluation Unstable Impairments Impairments Activity Tolerance,Functional Activities,Functional Mobility ,ROM,Strength Goals Three Impairment Significant LE weakness bilaterally Stationary Fireman Goal (LTG) Pt to increase LE MMT bilaterally to at least 4/5 in all planes in order to improve ability to ascend/ descend stairs and to increase ease of getting into/out of her car. LTG Duration 04/29/23 Two Impairment Pt able to perform 5 repetitions during 30 second sit to stand test Correction Goal (LTG) Pt to increase repetitions during 30 sec StS test by at least five for a total of 10 repetitions in order to better approximate average performance for her age group, the normative value of which is 10-15 repetitions. LTG Duration 04/29/23 One Impairment Pt does not have an appropriate home exercise program Short Term Goal (STG) Pt to be independent and compliant with an appropriate HEP STG Duration 03/29/23 Assessment Summary Assessment Pt presents with signs and symptoms of general weakness and deconditioning, as well as decreased knee ROM, likely secondary to prior Dx of mild osteoarthritis. When up walking, pt does very well, able to ambulate 1282' during her 6MWT without any assistive device, but showed very poor sit<->stand tolerance, only able to perform five repetitions over a 30 second period. Pt's complaints of difficulty with stairs, lifting her feet into her bed or the car, and inability to squat down are all suggestive of global LE weakness, which is backed up by MMT showing 3+ /5 or 4-/5 in nearly all tested LE planes. Pt should benefit from skilled therapy focusing on LE strengthening, transfer training, knee mobility, and stair training. Physical Therapy Plan Frequency and Duration Frequency of Treatment 1x/Week Plan of Care Start Date 02/27/23 Plan of Care End Date 04/29/23 Therapeutic Interventions Therapeutic Interventions Balance Training,Gait Training ,Home Exercise Program,Joint Mobilizations,Manual Therapy, Patient/Caregiver Education, Self-Care/Home Management,Soft Tissue Mobilization, Therapeutic Activities, Therapeutic Exercises Modalities Cold Pack/Ice Massage,Electric Stimulation,Hot Packs, Ultrasound Next Visit Focus/Plan Next Note Type Treatment Note Next Visit Plan Focus on LE strengthening, knee mobility. Plan of Care Dates Plan of Care Start Date 02/27/23 Plan of Care End Date 04/29/23 Electronically Signed by: Addy Power PT 02/28/23 [id number] If you are in agreement with this Plan of Care, please return a signed and dated copy. I have reviewed this Plan of Care and certify that the skilled therapy services above are required to meet the patient?s needs. Physician Signature Date Printed Name and Credentials Clinical Instructor Signature Printed Name and Credentials
--- NOTE | 2023-02-27 14:45 | PT.OIE ---
Current Diagnoses Pain in right knee (02/27/23) Low back pain, unspecified (02/27/23) Muscle weakness (generalized) (02/27/23) Age-related osteoporosis without current pathological fracture (02/27/23) Other fatigue (02/27/23) Past Medical History (Last Reviewed 01/03/23 @ 09:48 by Seda Ramirez MD) Obstructive sleep apnea of adult Visit Care Team Role Provider Type Shawna Johnston PA-C Family Provider Advanced Staff Cytotechnologist Primary Care Provider Specialty: Medical Address: [address] [place] [address], [id number] Email: David Dominguez MD Attending Provider Physician Referring Provider Specialty: Internal Medicine Address: [address] [place] [address] [id number], [place], [address] Email: Physical Therapy Initial Evaluation PT-OP-A Visit Information Start: 02/27/23 17:48 Freq: Status: Active Protocol: Document 02/27/23 14:00 DCW (Rec: 02/27/23 17:57 [facility] [id number]) Out-Patient Physical Therapy Visit Information Visit Information Visit Type Initial Evaluation Visit Start Time 14:00 Visit Stop Time 14:45 Total Visit Minutes 45 Visit Number 1 Number of TELEPHONE DIRECTORY DISTRIBUTOR DRIVER Visits 0 Evaluation Information Evaluation Date 02/27/23 PT-OP-B Current Condition Start: 02/27/23 17:48 Freq: Status: Active Protocol: Document 02/27/23 14:00 DCW (Rec: 02/27/23 17:57 [facility] [id number]) Current Condition History of Current Condition Onset Date Multi-month history Current Complaints knee pain, weakness, deconditioning History of Current Condition 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 Pt notes that ~one year ago, she had a fall at work and hit her right knee, was diagnosed at the time with mild arthritis, but it has bothered her ever since. Additionally, pt came down with COVID in April of 2022, ended up with pneumonia, and was really down for the count for two months, notes she didn't really start to recover until July, which has significantly affected her activity tolerance, LE strength,her ability to kneel, and her sit<->stand transfers . Also notes that she had an ankle fracture which required internal fixation multiple years ago. Does note that she is working back up to walking more, currently averages ~8, 000 steps a day. Has [address] [place] her house, which are also difficult, and pt notes her legs are difficult to lift up into her bed or into the car without UE assistance. PT-OP-C Subjective Start: 02/27/23 17:48 Freq: Status: Active Protocol: Document 02/27/23 14:00 DCW (Rec: 02/27/23 17:57 DCW [id number]) OP-PT Subjective Patient Comments Patient Comments I'm just really out of shape. Patient Questionnaires Lower Extremity Functional Scale LEFS Score 30/80 = 37.5% OP-PT Pain Assessment Pain Assessment Grid Paper Pain Assessment Grid Completed Yes: See scan PT-OP-E Functional Tests Start: 02/27/23 17:48 Freq: Status: Active Protocol: Document 02/27/23 14:00 DCW (Rec: 02/28/23 12:17 DCW [id number]) Functional Tests 6 Minute Walk Test Distance 1282 Device Used none Comments 3.56 ft/sec 30 Second Sit to Stand Test Score 5 repetitions PT-OP-G Mobility & Gait Start: 02/28/23 12:17 Freq: Status: Active Protocol: Document 02/27/23 14:00 DCW (Rec: 02/28/23 12:18 DCW [id number]) Stair Climbing Evaluation Evaluation Level of Assist On Stairs Independent Devices Stair Climbing Assistive Devices Left Railing,Right Railing Comments Stair Climbing Comments Ascend: Step over step Descend: Step to step PT-OP-K Range of Motion Start: 02/27/23 17:48 Freq: Status: Active Protocol: Document 02/27/23 14:00 DCW (Rec: 02/28/23 12:17 DCW [id number]) Knee Goniometric Range of Motion Knee Right Patient Position Supine Flexion Active (degrees) 104 Extension Active (degrees) 0 Left Patient Position Supine Flexion Active (degrees) 116 Extension Active (degrees) 0 Knee ROM Limitations Knee ROM Limitations Bony Restriction,Pain PT-OP-M Strength Start: 02/27/23 17:48 Freq: Status: Active Protocol: Document 02/27/23 14:00 DCW (Rec: 02/28/23 12:17 DCW [id number]) Hip Strength Hip Manual Muscle Testing Right Flexion (L2) 3+ Fair+ Abduction 4- Good- Adduction 3+ Fair+ External Rotation 4 Good Internal Rotation 4 Good Left Flexion (L2) 3+ Fair+ Abduction 4- Good- Adduction 3+ Fair+ External Rotation 4- Good- Internal Rotation 4- Good- Knee Strength Knee Manual Muscle Testing Right Flexion (S2) 4 Good Extension (L3) 4- Good- Comments Pain with resisted extension Left Flexion (S2) 4- Good- Extension (L3) 4 Good Comments Pain with resisted flexion Ankle/Foot Strength Ankle and Foot Manual Muscle Testing Right Dorsiflexion (L4) 4 Good Plantarflexion (S1) 4- Good- Left Dorsiflexion (L4) 3+ Fair+ Plantarflexion (S1) 4 Good PT-OP-T Assessment and Plan Start: 02/27/23 17:48 Freq: Status: Active Protocol: Document 02/27/23 14:00 DCW (Rec: 02/28/23 12:37 [facility] [id number]) Physical Therapy Assessment Rehab Potential Rehabilitation Potential Good Evaluation Complexity Number of Personal Factors/Comorbidities 3 or More Number of Body Systems Impaired 4 or More Clinical Presentation at Evaluation Unstable Impairments Impairments Activity Tolerance,Functional Activities,Functional Mobility ,ROM,Strength Goals Three Impairment Significant LE weakness bilaterally Pipe Organ Mechanic Apprentice Goal (LTG) Pt to increase LE MMT bilaterally to at least 4/5 in all planes in order to improve ability to ascend/ descend stairs and to increase ease of getting into/out of her car. LTG Duration 04/29/23 Two Impairment Pt able to perform 5 repetitions during 30 second sit to stand test Mcc Goal (LTG) Pt to increase repetitions during 30 sec StS test by at least five for a total of 10 repetitions in order to better approximate average performance for her age group, the normative value of which is 10-15 repetitions. LTG Duration 04/29/23 One Impairment Pt does not have an appropriate home exercise program Short Term Goal (STG) Pt to be independent and compliant with an appropriate HEP STG Duration 03/29/23 Assessment Summary Assessment Pt presents with signs and symptoms of general weakness and deconditioning, as well as decreased knee ROM, likely secondary to prior Dx of mild osteoarthritis. When up walking, pt does very well, able to ambulate 1282' during her 6MWT without any assistive device, but showed very poor sit<->stand tolerance, only able to perform five repetitions over a 30 second period. Pt's complaints of difficulty with stairs, lifting her feet into her bed or the car, and inability to squat down are all suggestive of global LE weakness, which is backed up by MMT showing 3+ /5 or 4-/5 in nearly all tested LE planes. Pt should benefit from skilled therapy focusing on LE strengthening, transfer training, knee mobility, and stair training. Physical Therapy Plan Frequency and Duration Frequency of Treatment 1x/Week Plan of Care Start Date 02/27/23 Plan of Care End Date 04/29/23 Therapeutic Interventions Therapeutic Interventions Balance Training,Gait Training ,Home Exercise Program,Joint Mobilizations,Manual Therapy, Patient/Caregiver Education, Self-Care/Home Management,Soft Tissue Mobilization, Therapeutic Activities, Therapeutic Exercises Modalities Cold Pack/Ice Massage,Electric Stimulation,Hot Packs, Ultrasound Next Visit Focus/Plan Next Note Type Treatment Note Next Visit Plan Focus on LE strengthening, knee mobility.
--- NOTE | 2023-02-28 12:38 | PT.OPPOC ---
Physical, Occupational & Speech Therapy At [facility] Current Diagnoses Pain in right knee (02/27/23) Low back pain, unspecified (02/27/23) Muscle weakness (generalized) (02/27/23) Age-related osteoporosis without current pathological fracture (02/27/23) Other fatigue (02/27/23) Visit Care Team Role Provider Type Shawna Johnston PA-C Family Provider Advanced Parking Analyst Primary Care Provider Specialty: Medical Address: [address] [place] [address], [address] Email: David Dominguez MD Attending Provider Physician Referring Provider Specialty: Internal Medicine Address: [address] [place], [place] [address], [address] Email: Plan Of Care PT-OP-T Assessment and Plan Start: 02/27/23 17:48 Freq: Status: Active Protocol: Document 02/27/23 14:00 DCW (Rec: 02/28/23 12:37 DCW [id number]) Physical Therapy Assessment Rehab Potential Rehabilitation Potential Good Evaluation Complexity Number of Personal Factors/Comorbidities 3 or More Number of Body Systems Impaired 4 or More Clinical Presentation at Evaluation Unstable Impairments Impairments Activity Tolerance,Functional Activities,Functional Mobility ,ROM,Strength Goals Three Impairment Significant LE weakness bilaterally Afloat Cryptologic Manager Goal (LTG) Pt to increase LE MMT bilaterally to at least 4/5 in all planes in order to improve ability to ascend/ descend stairs and to increase ease of getting into/out of her car. LTG Duration 04/29/23 Two Impairment Pt able to perform 5 repetitions during 30 second sit to stand test Snf Goal (LTG) Pt to increase repetitions during 30 sec StS test by at least five for a total of 10 repetitions in order to better approximate average performance for her age group, the normative value of which is 10-15 repetitions. LTG Duration 04/29/23 One Impairment Pt does not have an appropriate home exercise program Short Term Goal (STG) Pt to be independent and compliant with an appropriate HEP STG Duration 03/29/23 Assessment Summary Assessment Pt presents with signs and symptoms of general weakness and deconditioning, as well as decreased knee ROM, likely secondary to prior Dx of mild osteoarthritis. When up walking, pt does very well, able to ambulate 1282' during her 6MWT without any assistive device, but showed very poor sit<->stand tolerance, only able to perform five repetitions over a 30 second period. Pt's complaints of difficulty with stairs, lifting her feet into her bed or the car, and inability to squat down are all suggestive of global LE weakness, which is backed up by MMT showing 3+ /5 or 4-/5 in nearly all tested LE planes. Pt should benefit from skilled therapy focusing on LE strengthening, transfer training, knee mobility, and stair training. Physical Therapy Plan Frequency and Duration Frequency of Treatment 1x/Week Plan of Care Start Date 02/27/23 Plan of Care End Date 04/29/23 Therapeutic Interventions Therapeutic Interventions Balance Training,Gait Training ,Home Exercise Program,Joint Mobilizations,Manual Therapy, Patient/Caregiver Education, Self-Care/Home Management,Soft Tissue Mobilization, Therapeutic Activities, Therapeutic Exercises Modalities Cold Pack/Ice Massage,Electric Stimulation,Hot Packs, Ultrasound Next Visit Focus/Plan Next Note Type Treatment Note Next Visit Plan Focus on LE strengthening, knee mobility. Plan of Care Dates Plan of Care Start Date 02/27/23 Plan of Care End Date 04/29/23 Electronically Signed by: Addy Power PT 02/28/23 9410 If you are in agreement with this Plan of Care, please return a signed and dated copy. I have reviewed this Plan of Care and certify that the skilled therapy services above are required to meet the patient?s needs. Physician Signature Date Printed Name and Credentials Clinical Instructor Signature Printed Name and Credentials
--- NOTE | 2023-03-07 14:45 | PT.OTN ---
Current Diagnoses Pain in right knee (03/07/23) Low back pain, unspecified (03/07/23) Muscle weakness (generalized) (03/07/23) Age-related osteoporosis without current pathological fracture (03/07/23) Other fatigue (03/07/23) Physical Therapy Treatment Note PT-OP-A Visit Information Start: 02/27/23 17:48 Freq: Status: Active Protocol: Document 03/07/23 14:00 DCW (Rec: 03/07/23 14:45 DCW [id number]) Out-Patient Physical Therapy Visit Information Visit Information Visit Type Treatment Note Visit Start Time 14:00 Visit Stop Time 14:45 Total Visit Minutes 45 Visit Number 2 Number of BONDED STRUCTURES REPAIRER Visits 0 Evaluation Information Evaluation Date 02/27/23 PT-OP-B Current Condition Start: 02/27/23 17:48 Freq: Status: Active Protocol: Document 02/27/23 14:00 DCW (Rec: 02/27/23 17:57 DCW [id number]) Current Condition History of Current Condition Onset Date Multi-month history Current Complaints knee pain, weakness, deconditioning History of Current Condition 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 Pt notes that ~one year ago, she had a fall at work and hit her right knee, was diagnosed at the time with mild arthritis, but it has bothered her ever since. Additionally, pt came down with COVID in April of 2022, ended up with pneumonia, and was really down for the count for two months, notes she didn't really start to recover until July, which has significantly affected her activity tolerance, LE strength,her ability to kneel, and her sit<->stand transfers . Also notes that she had an ankle fracture which required internal fixation multiple years ago. Does note that she is working back up to walking more, currently averages ~8, 000 steps a day. Has [address] [place] house, which are also difficult, and pt notes her legs are difficult to lift up into her bed or into the car without UE assistance. PT-OP-C Subjective Start: 02/27/23 17:48 Freq: Status: Active Protocol: Document 03/07/23 14:00 DCW (Rec: 03/07/23 14:45 DCW [id number]) OP-PT Subjective Patient Comments Patient Comments I've had a busy day and nothing seem to be working, so I'm excited to see what we'll be doing here today. PT-OP-E Functional Tests Start: 02/27/23 17:48 Freq: Status: Active Protocol: Document 02/27/23 14:00 DCW (Rec: 02/28/23 12:17 DCW [id number]) Functional Tests 6 Minute Walk Test Distance 1282 Device Used none Comments 3.56 ft/sec 30 Second Sit to Stand Test Score 5 repetitions PT-OP-G Mobility & Gait Start: 02/28/23 12:17 Freq: Status: Active Protocol: Document 02/27/23 14:00 DCW (Rec: 02/28/23 12:18 DCW [id number]) Stair Climbing Evaluation Evaluation Level of Assist On Stairs Independent Devices Stair Climbing Assistive Devices Left Railing,Right Railing Comments Stair Climbing Comments Ascend: Step over step Descend: Step to step PT-OP-K Range of Motion Start: 02/27/23 17:48 Freq: Status: Active Protocol: Document 02/27/23 14:00 DCW (Rec: 02/28/23 12:17 DCW [id number]) Knee Goniometric Range of Motion Knee Right Patient Position Supine Flexion Active (degrees) 104 Extension Active (degrees) 0 Left Patient Position Supine Flexion Active (degrees) 116 Extension Active (degrees) 0 Knee ROM Limitations Knee ROM Limitations Bony Restriction,Pain PT-OP-M Strength Start: 02/27/23 17:48 Freq: Status: Active Protocol: Document 02/27/23 14:00 DCW (Rec: 02/28/23 12:17 DCW [id number]) Hip Strength Hip Manual Muscle Testing Right Flexion (L2) 3+ Fair+ Abduction 4- Good- Adduction 3+ Fair+ External Rotation 4 Good Internal Rotation 4 Good Left Flexion (L2) 3+ Fair+ Abduction 4- Good- Adduction 3+ Fair+ External Rotation 4- Good- Internal Rotation 4- Good- Knee Strength Knee Manual Muscle Testing Right Flexion (S2) 4 Good Extension (L3) 4- Good- Comments Pain with resisted extension Left Flexion (S2) 4- Good- Extension (L3) 4 Good Comments Pain with resisted flexion Ankle/Foot Strength Ankle and Foot Manual Muscle Testing Right Dorsiflexion (L4) 4 Good Plantarflexion (S1) 4- Good- Left Dorsiflexion (L4) 3+ Fair+ Plantarflexion (S1) 4 Good PT-OP-Q Treatments Start: 02/27/23 17:48 Freq: Status: Active Protocol: Document 03/07/23 14:00 DCW (Rec: 03/07/23 14:45 DCW [id number]) Cardio Equipment Recumbent Elliptical (Biodex) Duration (Minutes) 5 Resistance 8 Seat Position 9 Gym Equipment Shuttle Recovery Unilateral Squats Resistance 37# Shuttle Recovery Platform Stable Bilateral Squats Resistance 75# Shuttle Recovery Platform Stable Therapeutic Exercises Sitting Exercises LAQ Sitting Exercise Name LAQ Side bilateral Resistance 5# Hamstring Curls Sitting Exercise Name HS curls Side bilateral Resistance [place] Other Exercises Resisted Ambulation Other Exercise Name Resisted side-stepping, forward, backward Equipment Used Red loop Step-ups Other Exercise Name Step-ups Side bilateral Equipment Used 6 step PT-OP-T Assessment and Plan Start: 02/27/23 17:48 Freq: Status: Active Protocol: Document 03/07/23 14:00 DCW (Rec: 03/07/23 14:45 DCW [id number]) Physical Therapy Assessment Impairments Impairments Activity Tolerance,Functional Activities,Functional Mobility ,ROM,Strength Goals Three Impairment Significant LE weakness bilaterally Health Diagnostics Teacher Goal (LTG) Pt to increase LE MMT bilaterally to at least 4/5 in all planes in order to improve ability to ascend/ descend stairs and to increase ease of getting into/out of her car. LTG Duration 04/29/23 Two Impairment Pt able to perform 5 repetitions during 30 second sit to stand test Health Diagnostics Teacher Goal (LTG) Pt to increase repetitions during 30 sec StS test by at least five for a total of 10 repetitions in order to better approximate average performance for her age group, the normative value of which is 10-15 repetitions. LTG Duration 04/29/23 One Impairment Pt does not have an appropriate home exercise program Short Term Goal (STG) Pt to be independent and compliant with an appropriate HEP STG Duration 03/29/23 Assessment Summary Assessment Pt admitted her legs felt like jelly by the end of today's session, but was very excited to work independently on HEP after today's visit, noted multiple times she felt this was just what I needed. Able to tolerate all activities. Physical Therapy Plan Frequency and Duration Frequency of Treatment 1x/Week Plan of Care Start Date 02/27/23 Plan of Care End Date 04/29/23 Therapeutic Interventions Therapeutic Interventions Balance Training,Gait Training ,Home Exercise Program,Joint Mobilizations,Manual Therapy, Patient/Caregiver Education, Self-Care/Home Management,Soft Tissue Mobilization, Therapeutic Activities, Therapeutic Exercises Modalities Cold Pack/Ice Massage,Electric Stimulation,Hot Packs, Ultrasound Next Visit Focus/Plan Next Note Type Treatment Note Next Visit Plan Focus on LE strengthening, knee mobility.
--- NOTE | 2023-03-13 17:27 | PT.OTN ---
Current Diagnoses Pain in right knee (03/13/23) Low back pain, unspecified (03/13/23) Muscle weakness (generalized) (03/13/23) Age-related osteoporosis without current pathological fracture (03/13/23) Other fatigue (03/13/23) Physical Therapy Treatment Note PT-OP-A Visit Information Start: 02/27/23 17:48 Freq: Status: Active Protocol: Document 03/13/23 15:32 SW (Rec: 03/13/23 17:27 SW [id number]) Out-Patient Physical Therapy Visit Information Visit Information Visit Type Treatment Note Visit Start Time 15:31 Visit Stop Time 16:15 Total Visit Minutes 44 Visit Number 3 Number of HANDICAPPED TEACHER Visits 1 PT-OP-B Current Condition Start: 02/27/23 17:48 Freq: Status: Active Protocol: Document 02/27/23 14:00 DCW (Rec: 02/27/23 17:57 DCW [id number]) Current Condition History of Current Condition Onset Date Multi-month history Current Complaints knee pain, weakness, deconditioning History of Current Condition 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 Pt notes that ~one year ago, she had a fall at work and hit her right knee, was diagnosed at the time with mild arthritis, but it has bothered her ever since. Additionally, pt came down with COVID in April of 2022, ended up with pneumonia, and was really down for the count for two months, notes she didn't really start to recover until July, which has significantly affected her activity tolerance, LE strength,her ability to kneel, and her sit<->stand transfers . Also notes that she had an ankle fracture which required internal fixation multiple years ago. Does note that she is working back up to walking more, currently averages ~8, 000 steps a day. Has [address] [place] her house, which are also difficult, and pt notes her legs are difficult to lift up into her bed or into the car without UE assistance. PT-OP-C Subjective Start: 02/27/23 17:48 Freq: Status: Active Protocol: Document 03/13/23 15:32 SW (Rec: 03/13/23 17:27 SW [id number]) OP-PT Subjective Patient Comments Patient Comments Had a twinge from moving pot in garden. HEP is going well, feels like they are making a difference. PT-OP-E Functional Tests Start: 02/27/23 17:48 Freq: Status: Active Protocol: Document 02/27/23 14:00 DCW (Rec: 02/28/23 12:17 DCW [id number]) Functional Tests 6 Minute Walk Test Distance 1282 Device Used none Comments 3.56 ft/sec 30 Second Sit to Stand Test Score 5 repetitions PT-OP-G Mobility & Gait Start: 02/28/23 12:17 Freq: Status: Active Protocol: Document 02/27/23 14:00 DCW (Rec: 02/28/23 12:18 DCW [id number]) Stair Climbing Evaluation Evaluation Level of Assist On Stairs Independent Devices Stair Climbing Assistive Devices Left Railing,Right Railing Comments Stair Climbing Comments Ascend: Step over step Descend: Step to step PT-OP-K Range of Motion Start: 02/27/23 17:48 Freq: Status: Active Protocol: Document 02/27/23 14:00 DCW (Rec: 02/28/23 12:17 DCW [id number]) Knee Goniometric Range of Motion Knee Right Patient Position Supine Flexion Active (degrees) 104 Extension Active (degrees) 0 Left Patient Position Supine Flexion Active (degrees) 116 Extension Active (degrees) 0 Knee ROM Limitations Knee ROM Limitations Bony Restriction,Pain PT-OP-M Strength Start: 02/27/23 17:48 Freq: Status: Active Protocol: Document 02/27/23 14:00 DCW (Rec: 02/28/23 12:17 DCW [id number]) Hip Strength Hip Manual Muscle Testing Right Flexion (L2) 3+ Fair+ Abduction 4- Good- Adduction 3+ Fair+ External Rotation 4 Good Internal Rotation 4 Good Left Flexion (L2) 3+ Fair+ Abduction 4- Good- Adduction 3+ Fair+ External Rotation 4- Good- Internal Rotation 4- Good- Knee Strength Knee Manual Muscle Testing Right Flexion (S2) 4 Good Extension (L3) 4- Good- Comments Pain with resisted extension Left Flexion (S2) 4- Good- Extension (L3) 4 Good Comments Pain with resisted flexion Ankle/Foot Strength Ankle and Foot Manual Muscle Testing Right Dorsiflexion (L4) 4 Good Plantarflexion (S1) 4- Good- Left Dorsiflexion (L4) 3+ Fair+ Plantarflexion (S1) 4 Good PT-OP-Q Treatments Start: 02/27/23 17:48 Freq: Status: Active Protocol: Document 03/13/23 15:32 (Rec: 03/13/23 17:27 [id number]) Cardio Equipment Recumbent Elliptical (Biodex) Duration (Minutes) 4 Resistance 8 Seat Position 9 Gym Equipment Shuttle Recovery Unilateral Squats Resistance 37# Shuttle Recovery Platform Stable Bilateral Squats Resistance 75# Shuttle Recovery Platform Stable Therapeutic Exercises Supine Exercises Knee ROM Side bilateral Resistance AROM>Sustained Stretch Reps/Minutes x 10 BLE> 3 x 20 Comments Verbal cues for knee ROM and avoiding hip flex compensation , pn free range LTR Side bilateral Reps/Minutes x 30 Bridge Side bilateral Reps/Minutes x5 Comments verbal/tactile cues for Trunk stabilization/glute activation Sitting Exercises LAQ Sitting Exercise Name LAQ Side bilateral Resistance 5# Hamstring Curls Sitting Exercise Name HS curls Side bilateral Resistance [place] Other Exercises Resisted Ambulation Other Exercise Name Resisted side-stepping, forward, backward Equipment Used Red loop Step-ups Other Exercise Name Step-ups Side bilateral Equipment Used 6 step PT-OP-T Assessment and Plan Start: 02/27/23 17:48 Freq: Status: Active Protocol: Document 03/13/23 15:32 (Rec: 03/13/23 17:27 [id number]) Physical Therapy Assessment Goals Three Impairment Significant LE weakness bilaterally Equal Opportunity Director Goal (LTG) Pt to increase LE MMT bilaterally to at least 4/5 in all planes in order to improve ability to ascend/ descend stairs and to increase ease of getting into/out of her car. LTG Duration 04/29/23 Two Impairment Pt able to perform 5 repetitions during 30 second sit to stand test Fpc Goal (LTG) Pt to increase repetitions during 30 sec StS test by at least five for a total of 10 repetitions in order to better approximate average performance for her age group, the normative value of which is 10-15 repetitions. LTG Duration 04/29/23 One Impairment Pt does not have an appropriate home exercise program Short Term Goal (STG) Pt to be independent and compliant with an appropriate HEP STG Duration 03/29/23 Assessment Summary Assessment Plan to assess pt response to HEP next session. Pt highly motivated and excited to see improvement w/ ADLs and decreased pn w/ prescribed HEP. Pt reported LB pn relief w/prescribed stretches this session. Started Knee ROM in a pain free range. Physical Therapy Plan Frequency and Duration Frequency of Treatment 1x/Week Plan of Care Start Date 02/27/23 Plan of Care End Date 04/29/23 Therapeutic Interventions Therapeutic Interventions Balance Training,Gait Training ,Home Exercise Program,Joint Mobilizations,Manual Therapy, Patient/Caregiver Education, Self-Care/Home Management,Soft Tissue Mobilization, Therapeutic Activities, Therapeutic Exercises Modalities Cold Pack/Ice Massage,Electric Stimulation,Hot Packs, Ultrasound Next Visit Focus/Plan Next Note Type Treatment Note Next Visit Plan Focus on LE strengthening, knee mobility.
--- NOTE | 2023-03-20 12:48 | PT.OTN ---
Current Diagnoses Pain in right knee (03/20/23) Low back pain, unspecified (03/20/23) Muscle weakness (generalized) (03/20/23) Age-related osteoporosis without current pathological fracture (03/20/23) Other fatigue (03/20/23) Physical Therapy Treatment Note PT-OP-A Visit Information Start: 02/27/23 17:48 Freq: Status: Active Protocol: Document 03/20/23 12:00 SP (Rec: 03/20/23 12:50 SP [id number]) Out-Patient Physical Therapy Visit Information Visit Information Visit Type Treatment Note Visit Start Time 12:00 Visit Stop Time 12:48 Total Visit Minutes 48 Visit Number 4 Number of JAVA FLEX DEVELOPER Visits 2 Evaluation Information Evaluation Date 02/27/23 PT-OP-B Current Condition Start: 02/27/23 17:48 Freq: Status: Active Protocol: Document 02/27/23 14:00 DCW (Rec: 02/27/23 17:57 DCW [id number]) Current Condition History of Current Condition Onset Date Multi-month history Current Complaints knee pain, weakness, deconditioning History of Current Condition 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 Pt notes that ~one year ago, she had a fall at work and hit her right knee, was diagnosed at the time with mild arthritis, but it has bothered her ever since. Additionally, pt came down with COVID in April of 2022, ended up with pneumonia, and was really down for the count for two months, notes she didn't really start to recover until July, which has significantly affected her activity tolerance, LE strength,her ability to kneel, and her sit<->stand transfers . Also notes that she had an ankle fracture which required internal fixation multiple years ago. Does note that she is working back up to walking more, currently averages ~8, 000 steps a day. Has [address] [place] her house, which are also difficult, and pt notes her legs are difficult to lift up into her bed or into the car without UE assistance. PT-OP-C Subjective Start: 02/27/23 17:48 Freq: Status: Active Protocol: Document 03/20/23 12:00 SP (Rec: 03/20/23 12:50 SP [id number]) OP-PT Subjective Patient Comments Patient Comments Pt reports dinged her back doing gardening bent over and rotated filling pots/dragging to another location. Pretty sore in back but knees better since starting and exercises doing carryover at home as well. She tried the LTR to help back feel better but didn 't work, wants to try see what can do to improve. PT-OP-E Functional Tests Start: 02/27/23 17:48 Freq: Status: Active Protocol: Document 02/27/23 14:00 DCW (Rec: 02/28/23 12:17 DCW [id number]) Functional Tests 6 Minute Walk Test Distance 1282 Device Used none Comments 3.56 ft/sec 30 Second Sit to Stand Test Score 5 repetitions PT-OP-G Mobility & Gait Start: 02/28/23 12:17 Freq: Status: Active Protocol: Document 02/27/23 14:00 DCW (Rec: 02/28/23 12:18 DCW [id number]) Stair Climbing Evaluation Evaluation Level of Assist On Stairs Independent Devices Stair Climbing Assistive Devices Left Railing,Right Railing Comments Stair Climbing Comments Ascend: Step over step Descend: Step to step PT-OP-K Range of Motion Start: 02/27/23 17:48 Freq: Status: Active Protocol: Document 02/27/23 14:00 DCW (Rec: 02/28/23 12:17 DCW [id number]) Knee Goniometric Range of Motion Knee Right Patient Position Supine Flexion Active (degrees) 104 Extension Active (degrees) 0 Left Patient Position Supine Flexion Active (degrees) 116 Extension Active (degrees) 0 Knee ROM Limitations Knee ROM Limitations Bony Restriction,Pain PT-OP-M Strength Start: 02/27/23 17:48 Freq: Status: Active Protocol: Document 02/27/23 14:00 DCW (Rec: 02/28/23 12:17 DCW [id number]) Hip Strength Hip Manual Muscle Testing Right Flexion (L2) 3+ Fair+ Abduction 4- Good- Adduction 3+ Fair+ External Rotation 4 Good Internal Rotation 4 Good Left Flexion (L2) 3+ Fair+ Abduction 4- Good- Adduction 3+ Fair+ External Rotation 4- Good- Internal Rotation 4- Good- Knee Strength Knee Manual Muscle Testing Right Flexion (S2) 4 Good Extension (L3) 4- Good- Comments Pain with resisted extension Left Flexion (S2) 4- Good- Extension (L3) 4 Good Comments Pain with resisted flexion Ankle/Foot Strength Ankle and Foot Manual Muscle Testing Right Dorsiflexion (L4) 4 Good Plantarflexion (S1) 4- Good- Left Dorsiflexion (L4) 3+ Fair+ Plantarflexion (S1) 4 Good PT-OP-Q Treatments Start: 02/27/23 17:48 Freq: Status: Active Protocol: Document 03/20/23 12:00 SP (Rec: 03/20/23 12:50 SP [id number]) Therapeutic Exercises Supine Exercises SKTC Supine Exercise Name reviewed self HEP Side bilateral Reps/Minutes 5 reps, short hold stretch Comments improved less LB tensio post manual LTR Side bilateral Reps/Minutes 5 reps, shorter hold stretch today Comments improved less LB tensio post manual Bridge Supine Exercise Name 03/20 added segmental movement for core fac support Side bilateral Reps/Minutes x5 Comments good feedback response more TA and no LB Sitting Exercises TA HABD Sitting Exercise Name reviewed self Resistance orange TA Reps/Minutes x10 Comments cued sit front seat, neutral pelvis, HABD good scap/TA work LAQ Sitting Exercise Name LAQ Side bilateral Resistance 5# Equipment Used EO black table Reps/Minutes 3x10 Comments cued elongation posturing, light UE support Hamstring Curls Sitting Exercise Name HS curls Side bilateral Resistance [place] anchored in door Equipment Used mesh chair Reps/Minutes 3x10 Comments cued elongation posturing, neutral pelvis Standing Exercises self STMs Standing Exercise Name ball wall: ES, glut Side bilateral Equipment Used racquet, tennis, lacrosse ball all good response Reps/Minutes 2 min Comments good feedback response katie lacrosse ball Manual Therapy Treatment Soft Tissue Mobilization Low back/ pelvis Body Location L>R ES, paraspinal, superior glut med/Max Mobilization Type Strumming Intensity/Depth Moderate Body Position Prone Comments good feedback response to pressure, discussed/instructed /performed self application ball on wall. Manual Traction Lumbar Details w/ strap behind calves Body Position Hooklying Comments sustained pressure and w/ FM pelvic tilts- good response in increased LS &pelvic mobility Self-Care/Home Management Treatment Education Patient Education Body Mechanics,Home Exercise Program,Pain Management, Posture,Safety Other Education time discussion sleeping use pillows, body mechanics lifting pots (5-10# in crate) w/emphasis close to body and pivot feet or wt shift between BLEs needed, wide stance hip hinge/squat pos. She reports has a dolley and forgot can use for transportation, JAVA FLEX DEVELOPER agreed a good strategy for back health. PT-OP-T Assessment and Plan Start: 02/27/23 17:48 Freq: Status: Active Protocol: Document 03/20/23 12:00 SP (Rec: 03/20/23 12:50 SP [id number]) Physical Therapy Assessment Goals Three Impairment Significant LE weakness bilaterally Capping Machine Operator Goal (LTG) Pt to increase LE MMT bilaterally to at least 4/5 in all planes in order to improve ability to ascend/ descend stairs and to increase ease of getting into/out of her car. LTG Duration 04/29/23 Two Impairment Pt able to perform 5 repetitions during 30 second sit to stand test Capping Machine Operator Goal (LTG) Pt to increase repetitions during 30 sec StS test by at least five for a total of 10 repetitions in order to better approximate average performance for her age group, the normative value of which is 10-15 repetitions. LTG Duration 04/29/23 One Impairment Pt does not have an appropriate home exercise program Short Term Goal (STG) Pt to be independent and compliant with an appropriate HEP STG Duration 03/29/23 Assessment Summary Assessment Pt good feedback response to manual and performed self application ball on wall. Pt able to perform increased range pelvic mobility: A/P/ Lateral and rotation MWM and instructed active core fac with modified segmental bridge with good response back feels better. She was able to complete squatting body mechanics with resistance better end tx. Physical Therapy Plan Frequency and Duration Frequency of Treatment 1x/Week Plan of Care Start Date 02/27/23 Plan of Care End Date 04/29/23 Therapeutic Interventions Therapeutic Interventions Balance Training,Gait Training ,Home Exercise Program,Joint Mobilizations,Manual Therapy, Patient/Caregiver Education, Self-Care/Home Management,Soft Tissue Mobilization, Therapeutic Activities, Therapeutic Exercises Modalities Cold Pack/Ice Massage,Electric Stimulation,Hot Packs, Ultrasound Next Visit Focus/Plan Next Note Type Treatment Note Next Visit Plan Check response to manual and self added last tx, review/ incorporated body mechanics gardening activities. Maybe add [place] fwd, lateral. POC: Focus on LE strengthening , knee mobility.
--- NOTE | 2023-03-27 15:32 | PT.OTN ---
Current Diagnoses Pain in right knee (03/27/23) Low back pain, unspecified (03/27/23) Muscle weakness (generalized) (03/27/23) Age-related osteoporosis without current pathological fracture (03/27/23) Other fatigue (03/27/23) Physical Therapy Treatment Note PT-OP-A Visit Information Start: 02/27/23 17:48 Freq: Status: Active Protocol: Document 03/27/23 14:48 DCW (Rec: 03/27/23 15:32 DCW [id number]) Out-Patient Physical Therapy Visit Information Visit Information Visit Type Treatment Note Visit Start Time 14:48 Visit Stop Time 15:30 Total Visit Minutes 42 Visit Number 5 Number of SURVEILLANCE ANALYST Visits 0 Evaluation Information Evaluation Date 02/27/23 PT-OP-B Current Condition Start: 02/27/23 17:48 Freq: Status: Active Protocol: Document 02/27/23 14:00 DCW (Rec: 02/27/23 17:57 DCW [id number]) Current Condition History of Current Condition Onset Date Multi-month history Current Complaints knee pain, weakness, deconditioning History of Current Condition 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 Pt notes that ~one year ago, she had a fall at work and hit her right knee, was diagnosed at the time with mild arthritis, but it has bothered her ever since. Additionally, pt came down with COVID in April of 2022, ended up with pneumonia, and was really down for the count for two months, notes she didn't really start to recover until July, which has significantly affected her activity tolerance, LE strength,her ability to kneel, and her sit<->stand transfers . Also notes that she had an ankle fracture which required internal fixation multiple years ago. Does note that she is working back up to walking more, currently averages ~8, 000 steps a day. Has [address] [place] house, which are also difficult, and pt notes her legs are difficult to lift up into her bed or into the car without UE assistance. PT-OP-C Subjective Start: 02/27/23 17:48 Freq: Status: Active Protocol: Document 03/27/23 14:48 DCW (Rec: 03/27/23 15:32 DCW [id number]) OP-PT Subjective Patient Comments Patient Comments Reports that she is able to ascend/descend stairs without pain, which she is very happy about. Still has a sore spot on her posterior left hip with resisted side-stepping. PT-OP-E Functional Tests Start: 02/27/23 17:48 Freq: Status: Active Protocol: Document 02/27/23 14:00 DCW (Rec: 02/28/23 12:17 DCW [id number]) Functional Tests 6 Minute Walk Test Distance 1282 Device Used none Comments 3.56 ft/sec 30 Second Sit to Stand Test Score 5 repetitions PT-OP-G Mobility & Gait Start: 02/28/23 12:17 Freq: Status: Active Protocol: Document 02/27/23 14:00 DCW (Rec: 02/28/23 12:18 DCW [id number]) Stair Climbing Evaluation Evaluation Level of Assist On Stairs Independent Devices Stair Climbing Assistive Devices Left Railing,Right Railing Comments Stair Climbing Comments Ascend: Step over step Descend: Step to step PT-OP-K Range of Motion Start: 02/27/23 17:48 Freq: Status: Active Protocol: Document 02/27/23 14:00 DCW (Rec: 02/28/23 12:17 DCW [id number]) Knee Goniometric Range of Motion Knee Right Patient Position Supine Flexion Active (degrees) 104 Extension Active (degrees) 0 Left Patient Position Supine Flexion Active (degrees) 116 Extension Active (degrees) 0 Knee ROM Limitations Knee ROM Limitations Bony Restriction,Pain PT-OP-M Strength Start: 02/27/23 17:48 Freq: Status: Active Protocol: Document 02/27/23 14:00 DCW (Rec: 02/28/23 12:17 DCW [id number]) Hip Strength Hip Manual Muscle Testing Right Flexion (L2) 3+ Fair+ Abduction 4- Good- Adduction 3+ Fair+ External Rotation 4 Good Internal Rotation 4 Good Left Flexion (L2) 3+ Fair+ Abduction 4- Good- Adduction 3+ Fair+ External Rotation 4- Good- Internal Rotation 4- Good- Knee Strength Knee Manual Muscle Testing Right Flexion (S2) 4 Good Extension (L3) 4- Good- Comments Pain with resisted extension Left Flexion (S2) 4- Good- Extension (L3) 4 Good Comments Pain with resisted flexion Ankle/Foot Strength Ankle and Foot Manual Muscle Testing Right Dorsiflexion (L4) 4 Good Plantarflexion (S1) 4- Good- Left Dorsiflexion (L4) 3+ Fair+ Plantarflexion (S1) 4 Good PT-OP-Q Treatments Start: 02/27/23 17:48 Freq: Status: Active Protocol: Document 03/27/23 14:48 DCW (Rec: 03/27/23 15:32 DCW [id number]) Cardio Equipment Recumbent Elliptical (Biodex) Duration (Minutes) 5 Resistance 6 Seat Position 9 Gym Equipment Shuttle Recovery Unilateral Squats Resistance 37# Shuttle Recovery Platform Stable Bilateral Squats Resistance 75# (one new) Shuttle Recovery Platform Stable Therapeutic Exercises Supine Exercises Piriformis Supine Exercise Name Piriformis stretch Side bilateral Sidelying Exercises Reverse Clamshell Sidelying Exercise Name Reverse Clamshell Side bilateral Clamshell Sidelying Exercise Name Clamshell Side bilateral Standing Exercises BOSU Lunge Standing Exercise Name BOSU Lunge Side bilateral Other Exercises Resisted Ambulation Other Exercise Name Resisted side-stepping, forward, backward Equipment Used Green (side) Yellow (fwd/bkwd) Step-ups Other Exercise Name Step-ups Side bilateral Equipment Used 6 step PT-OP-T Assessment and Plan Start: 02/27/23 17:48 Freq: Status: Active Protocol: Document 03/27/23 14:48 DCW (Rec: 03/27/23 15:32 DCW [id number]) Physical Therapy Assessment Goals Three Impairment Significant LE weakness bilaterally Aluminum Molder Goal (LTG) Pt to increase LE MMT bilaterally to at least 4/5 in all planes in order to improve ability to ascend/ descend stairs and to increase ease of getting into/out of her car. LTG Duration 04/29/23 Two Impairment Pt able to perform 5 repetitions during 30 second sit to stand test Aluminum Molder Goal (LTG) Pt to increase repetitions during 30 sec StS test by at least five for a total of 10 repetitions in order to better approximate average performance for her age group, the normative value of which is 10-15 repetitions. LTG Duration 04/29/23 One Impairment Pt does not have an appropriate home exercise program Short Term Goal (STG) Pt to be independent and compliant with an appropriate HEP STG Duration 03/29/23 Assessment Summary Assessment Discussed today how hip strengthening and stretching can help limit pt's foot ER during gait, pt found this information very helpful. Happy with current HEP, admits she has been having a bit of difficulty with self- motivation Physical Therapy Plan Frequency and Duration Frequency of Treatment 1x/Week Plan of Care Start Date 02/27/23 Plan of Care End Date 04/29/23 Therapeutic Interventions Therapeutic Interventions Balance Training,Gait Training ,Home Exercise Program,Joint Mobilizations,Manual Therapy, Patient/Caregiver Education, Self-Care/Home Management,Soft Tissue Mobilization, Therapeutic Activities, Therapeutic Exercises Modalities Cold Pack/Ice Massage,Electric Stimulation,Hot Packs, Ultrasound Next Visit Focus/Plan Next Note Type Treatment Note Next Visit Plan Check response to manual and self added last tx, review/ incorporated body mechanics gardening activities. Maybe add yomi carlisle, lateral. POC: Focus on LE strengthening , knee mobility.
--- NOTE | 2023-04-03 17:16 | PT.OTN ---
Current Diagnoses Pain in right knee (04/03/23) Low back pain, unspecified (04/03/23) Muscle weakness (generalized) (04/03/23) Age-related osteoporosis without current pathological fracture (04/03/23) Other fatigue (04/03/23) Physical Therapy Treatment Note PT-OP-A Visit Information Start: 02/27/23 17:48 Freq: Status: Active Protocol: Document 04/03/23 16:33 DCW (Rec: 04/03/23 17:16 DCW [id number]) Out-Patient Physical Therapy Visit Information Visit Information Visit Type Treatment Note Visit Start Time 16:33 Visit Stop Time 17:15 Total Visit Minutes 42 Visit Number 6 Number of FAMILY SUPPORT SPECIALIST Visits 0 Evaluation Information Evaluation Date 02/27/23 PT-OP-B Current Condition Start: 02/27/23 17:48 Freq: Status: Active Protocol: Document 02/27/23 14:00 DCW (Rec: 02/27/23 17:57 DCW [id number]) Current Condition History of Current Condition Onset Date Multi-month history Current Complaints knee pain, weakness, deconditioning History of Current Condition 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 Pt notes that ~one year ago, she had a fall at work and hit her right knee, was diagnosed at the time with mild arthritis, but it has bothered her ever since. Additionally, pt came down with COVID in April of 2022, ended up with pneumonia, and was really down for the count for two months, notes she didn't really start to recover until July, which has significantly affected her activity tolerance, LE strength,her ability to kneel, and her sit<->stand transfers . Also notes that she had an ankle fracture which required internal fixation multiple years ago. Does note that she is working back up to walking more, currently averages ~8, 000 steps a day. Has [address] [place] her house, which are also difficult, and pt notes her legs are difficult to lift up into her bed or into the car without UE assistance. PT-OP-C Subjective Start: 02/27/23 17:48 Freq: Status: Active Protocol: Document 04/03/23 16:33 DCW (Rec: 04/03/23 17:16 DCW [id number]) OP-PT Subjective Patient Comments Patient Comments Pt feeling pretty darn good. PT-OP-E Functional Tests Start: 02/27/23 17:48 Freq: Status: Active Protocol: Document 02/27/23 14:00 DCW (Rec: 02/28/23 12:17 DCW [id number]) Functional Tests 6 Minute Walk Test Distance 1282 Device Used none Comments 3.56 ft/sec 30 Second Sit to Stand Test Score 5 repetitions PT-OP-G Mobility & Gait Start: 02/28/23 12:17 Freq: Status: Active Protocol: Document 02/27/23 14:00 DCW (Rec: 02/28/23 12:18 DCW [id number]) Stair Climbing Evaluation Evaluation Level of Assist On Stairs Independent Devices Stair Climbing Assistive Devices Left Railing,Right Railing Comments Stair Climbing Comments Ascend: Step over step Descend: Step to step PT-OP-K Range of Motion Start: 02/27/23 17:48 Freq: Status: Active Protocol: Document 02/27/23 14:00 DCW (Rec: 02/28/23 12:17 DCW [id number]) Knee Goniometric Range of Motion Knee Right Patient Position Supine Flexion Active (degrees) 104 Extension Active (degrees) 0 Left Patient Position Supine Flexion Active (degrees) 116 Extension Active (degrees) 0 Knee ROM Limitations Knee ROM Limitations Bony Restriction,Pain PT-OP-M Strength Start: 02/27/23 17:48 Freq: Status: Active Protocol: Document 02/27/23 14:00 DCW (Rec: 02/28/23 12:17 DCW [id number]) Hip Strength Hip Manual Muscle Testing Right Flexion (L2) 3+ Fair+ Abduction 4- Good- Adduction 3+ Fair+ External Rotation 4 Good Internal Rotation 4 Good Left Flexion (L2) 3+ Fair+ Abduction 4- Good- Adduction 3+ Fair+ External Rotation 4- Good- Internal Rotation 4- Good- Knee Strength Knee Manual Muscle Testing Right Flexion (S2) 4 Good Extension (L3) 4- Good- Comments Pain with resisted extension Left Flexion (S2) 4- Good- Extension (L3) 4 Good Comments Pain with resisted flexion Ankle/Foot Strength Ankle and Foot Manual Muscle Testing Right Dorsiflexion (L4) 4 Good Plantarflexion (S1) 4- Good- Left Dorsiflexion (L4) 3+ Fair+ Plantarflexion (S1) 4 Good PT-OP-Q Treatments Start: 02/27/23 17:48 Freq: Status: Active Protocol: Document 04/03/23 16:33 DCW (Rec: 04/03/23 17:16 DCW [id number]) Cardio Equipment Recumbent Elliptical (Biodex) Duration (Minutes) 5 Resistance 6 Seat Position 9 Gym Equipment Shuttle Balance Red Details WBOS, Staggered, Lateral weight shift Therapeutic Exercises Supine Exercises Piriformis Supine Exercise Name Piriformis stretch Side bilateral SKTC Side bilateral Reps/Minutes 5 reps, short hold stretch Comments improved less LB tensio post manual Sitting Exercises Piriformis Sitting Exercise Name Seated figure-4 piriformis stretch Side bilateral DF Sitting Exercise Name Ankle DF Side bilateral Resistance Blue Standing Exercises BOSU Lunge Standing Exercise Name BOSU Lunge Side bilateral PT-OP-T Assessment and Plan Start: 02/27/23 17:48 Freq: Status: Active Protocol: Document 04/03/23 16:33 DCW (Rec: 04/03/23 17:16 DCW [id number]) Physical Therapy Assessment Goals Three Impairment Significant LE weakness bilaterally Freight Engineer Goal (LTG) Pt to increase LE MMT bilaterally to at least 4/5 in all planes in order to improve ability to ascend/ descend stairs and to increase ease of getting into/out of her car. LTG Duration 04/29/23 Two Impairment Pt able to perform 5 repetitions during 30 second sit to stand test Fdc Goal (LTG) Pt to increase repetitions during 30 sec StS test by at least five for a total of 10 repetitions in order to better approximate average performance for her age group, the normative value of which is 10-15 repetitions. LTG Duration 04/29/23 One Impairment Pt does not have an appropriate home exercise program Short Term Goal (STG) Pt to be independent and compliant with an appropriate HEP STG Duration 03/29/23 Assessment Summary Assessment Pt feeling very good with overall progress. Due to scheduling conflicts, not able to attend any more visits for ~1 month. Pt feels she is doing well enough she may not need to return for more, but since it is so far out, would like to play it by ear and decide a little closer to the time of her appointment. Physical Therapy Plan Frequency and Duration Frequency of Treatment 1x/Week Plan of Care Start Date 02/27/23 Plan of Care End Date 04/29/23 Therapeutic Interventions Therapeutic Interventions Balance Training,Gait Training ,Home Exercise Program,Joint Mobilizations,Manual Therapy, Patient/Caregiver Education, Self-Care/Home Management,Soft Tissue Mobilization, Therapeutic Activities, Therapeutic Exercises Modalities Cold Pack/Ice Massage,Electric Stimulation,Hot Packs, Ultrasound Next Visit Focus/Plan Next Note Type Treatment Note Next Visit Plan Check response to manual and self added last tx, review/ incorporated body mechanics gardening activities. Maybe add yomi fwd, lateral. POC: Focus on LE strengthening , knee mobility.
--- NOTE | 2023-04-29 10:44 | PT.OPDS ---
Current Diagnoses Pain in right knee (04/03/23) Low back pain, unspecified (04/03/23) Muscle weakness (generalized) (04/03/23) Age-related osteoporosis without current pathological fracture (04/03/23) Other fatigue (04/03/23) Visit Care Team Role Provider Type Shawna Johnston PA-C Family Provider Advanced Shop Worker Primary Care Provider Specialty: Medical Address: [address] [place] [address], [id number] Email: David Dominguez MD Attending Provider Physician Referring Provider Specialty: Internal Medicine Address: [address] [place] [address] [id number], [place], [id number] Email: Visit Number Visit Number 6 Discharge Summary PT-OP-B Current Condition Start: 02/27/23 17:48 Freq: Status: Active Protocol: Document 02/27/23 14:00 DCW (Rec: 02/27/23 17:57 DCW [id number]) Current Condition History of Current Condition Onset Date Multi-month history Current Complaints knee pain, weakness, deconditioning History of Current Condition 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 Pt notes that ~one year ago, she had a fall at work and hit her right knee, was diagnosed at the time with mild arthritis, but it has bothered her ever since. Additionally, pt came down with COVID in April of 2022, ended up with pneumonia, and was really down for the count for two months, notes she didn't really start to recover until July, which has significantly affected her activity tolerance, LE strength,her ability to kneel, and her sit<->stand transfers . Also notes that she had an ankle fracture which required internal fixation multiple years ago. Does note that she is working back up to walking more, currently averages ~8, 000 steps a day. Has [address] [place] her house, which are also difficult, and pt notes her legs are difficult to lift up into her bed or into the car without UE assistance. PT-OP-C Subjective Start: 02/27/23 17:48 Freq: Status: Active Protocol: Document 04/03/23 16:33 DCW (Rec: 04/03/23 17:16 DCW [id number]) OP-PT Subjective Patient Comments Patient Comments Pt feeling pretty darn good. PT-OP-E Functional Tests Start: 02/27/23 17:48 Freq: Status: Active Protocol: Document 02/27/23 14:00 DCW (Rec: 02/28/23 12:17 DCW [id number]) Functional Tests 6 Minute Walk Test Distance 1282 Device Used none Comments 3.56 ft/sec 30 Second Sit to Stand Test Score 5 repetitions PT-OP-G Mobility & Gait Start: 02/28/23 12:17 Freq: Status: Active Protocol: Document 02/27/23 14:00 DCW (Rec: 02/28/23 12:18 DCW [id number]) Stair Climbing Evaluation Evaluation Level of Assist On Stairs Independent Devices Stair Climbing Assistive Devices Left Railing,Right Railing Comments Stair Climbing Comments Ascend: Step over step Descend: Step to step PT-OP-K Range of Motion Start: 02/27/23 17:48 Freq: Status: Active Protocol: Document 02/27/23 14:00 DCW (Rec: 02/28/23 12:17 DCW [id number]) Knee Goniometric Range of Motion Knee Right Patient Position Supine Flexion Active (degrees) 104 Extension Active (degrees) 0 Left Patient Position Supine Flexion Active (degrees) 116 Extension Active (degrees) 0 Knee ROM Limitations Knee ROM Limitations Bony Restriction,Pain PT-OP-M Strength Start: 02/27/23 17:48 Freq: Status: Active Protocol: Document 02/27/23 14:00 DCW (Rec: 02/28/23 12:17 DCW [id number]) Hip Strength Hip Manual Muscle Testing Right Flexion (L2) 3+ Fair+ Abduction 4- Good- Adduction 3+ Fair+ External Rotation 4 Good Internal Rotation 4 Good Left Flexion (L2) 3+ Fair+ Abduction 4- Good- Adduction 3+ Fair+ External Rotation 4- Good- Internal Rotation 4- Good- Knee Strength Knee Manual Muscle Testing Right Flexion (S2) 4 Good Extension (L3) 4- Good- Comments Pain with resisted extension Left Flexion (S2) 4- Good- Extension (L3) 4 Good Comments Pain with resisted flexion Ankle/Foot Strength Ankle and Foot Manual Muscle Testing Right Dorsiflexion (L4) 4 Good Plantarflexion (S1) 4- Good- Left Dorsiflexion (L4) 3+ Fair+ Plantarflexion (S1) 4 Good PT-OP-T Assessment and Plan Start: 02/27/23 17:48 Freq: Status: Active Protocol: Document 04/29/23 10:42 DCW (Rec: 04/29/23 10:44 DCW [id number]) Physical Therapy Assessment Goals Three Impairment Significant LE weakness bilaterally Fence Manufacture Supervisor Goal (LTG) Pt to increase LE MMT bilaterally to at least 4/5 in all planes in order to improve ability to ascend/ descend stairs and to increase ease of getting into/out of her car. LTG Duration 04/29/23 Two Impairment Pt able to perform 5 repetitions during 30 second sit to stand test Fence Manufacture Supervisor Goal (LTG) Pt to increase repetitions during 30 sec StS test by at least five for a total of 10 repetitions in order to better approximate average performance for her age group, the normative value of which is 10-15 repetitions. LTG Duration 04/29/23 One Impairment Pt does not have an appropriate home exercise program Short Term Goal (STG) Pt to be independent and compliant with an appropriate HEP STG Duration 03/29/23 Assessment Summary Assessment Plan at the time of last appointment was to give pt ~1 month to assess how she was doing prior to follow-up, and for her to cancel if she continued to do well without PT. Patient phoned to cancel her last visit, pt will be discharged from skilled PT at this time. Physical Therapy Plan Discharge Physical Therapy Discharge Reasons Patient Request Next Visit Focus/Plan Next Note Type Discharge Summary
== END 2023-04-29 16:14 | disposition home or self-care (01) ==
LOC: PHYS 16:30
PROVIDERS: Family Provider Physician Assistant; PCP Physician Assistant; Referring Provider Internal Medicine; Visit Provider Internal Medicine
DX: M81.0 Age-related osteoporosis without current pathological fracture (principal); M25.561 Pain in right knee; M54.50 Low back pain, unspecified; R53.83 Other fatigue; M62.81 Muscle weakness (generalized)
CPT/HCPCS: 97110; 97140; 97163

== ENCOUNTER 2023-05-12 08:47 | Emergency (ER) | payer OTHER, SELFPAY ==
[2023-02-01 11:02] VITALS: BMI 29.8
[2023-05-12 08:51] VITALS: BP 154/77; PULSE 84; RESP 16; TEMP 36.9; O2SAT 98; BMI 32.9
[2023-05-12] MEDS: FLUORESCEIN 1 MG STRIP EYE-BOTH (09:03)
[2023-05-12] MEDS: PROPARACAINE 0.5% OPHTH SOL 1 DROPS EYE-BOTH (09:03)
--- NOTE | 2023-05-12 09:04 | PC.NURSE ---
pt reports she was driving a lot yesterday and she thought she was just getting very dry eyes. then when she got home it was very red and irritated. in the middle of the night she turned on the light in her kitchen and the pain started in her right eye. denies trauma. she has had one shot of shingles vax but had a reaction and did not have the other shot.
--- NOTE | 2023-05-12 09:16 | ED_ITS ---
HPI - Eye Problem General Chief complaint: Eye Problems Stated complaint: rt eye pain, sentivity to light Time Seen by Provider: 05/12/23 08:55 History of Present Illness HPI Narrative: Patient 72-year-old female history of hypothyroid hypertension presents today with onset of right eye pain. She reports that she is extremely photosensitive can not open her eye. It started suddenly last night at p.m.. She denies any loss of vision she has no current closing no loss of vision she was very painful inside her eye. She has no fever no surrounding erythema. It is watering quite a bit. She denies wearing any contacts. She was not doing anything not sure if she got any foreign body in her eye. Related Data Home Medications Medication Instructions Recorded Confirmed amlodipine 10 mg tablet 10 mg PO DAILY 01/20/21 01/03/23 escitalopram oxalate 20 mg tablet 10 mg PO DAILY 01/20/21 01/03/23 (Lexapro) levothyroxine 75 mcg tablet 75 mcg PO DAILY 01/20/21 01/03/23 trazodone 50 mg PO QPM sleep 01/20/21 01/03/23 cetirizine 10 mg capsule (All Day 10 mg PO DAILY PRN Allergic 06/20/22 01/03/23 Allergy (cetirizine)) Symptoms meloxicam 15 mg tablet 15 mg PO DAILY 01/03/23 01/03/23 omega 2-dcv-ihq-fish oil 1,000 mg 1 cap PO DAILY 01/03/23 01/03/23 (120 mg-180 mg) capsule (Fish Oil) Previous Rx's Medication Instructions Recorded benzonatate 100 mg capsule 100 mg PO TID PRN cough #21 caps 02/01/23 guaifenesin 1,200 mg tablet, 1,200 mg PO BID #10 tabs 02/01/23 extended release 12 hr (Mucinex) fluticasone propionate 50 1 spray intranasal Q12H #16 grams 02/03/23 mcg/actuation nasal spray,suspension (Flonase Allergy Relief) gentamicin 0.1 % topical ointment 1 applic topical .at night #15 05/12/23 grams gentamicin 0.3 % eye drops 2 drp EYE-RIGHT Q4HRWA 7 days #5 mL 05/12/23 hydrocodone 5 mg-acetaminophen 325 1 tab PO Q6H PRN pain #10 tabs 05/12/23 mg tablet Allergies Allergy/AdvReac Type Severity Reaction Status Date / Time vaccine adjuvant system, Allergy Severe hives, Verified 02/01/23 11:51 AS01B liposomal syncope [From Shingrix (PF)] varicella-zoster virus Allergy Severe hives, Verified 02/01/23 11:51 glycoprotein E, recombinant syncope [From Shingrix (PF)] codeine Allergy Intermediate BP drop Verified 02/01/23 11:51 butorphanol [From Stadol] Allergy Verified 02/01/23 11:51 Review of Systems Review of Systems ROS Unobtainable: All systems reviewed & are unremarkable except as noted in HPI and below Patient History Medical History Obstructive sleep apnea of adult Social History household members: spouse Smoking Status: Never smoker Smoking Status: Never smoker alcohol intake frequency: 0-2 drinks per day Substance Use Type: does not use Exam Initial Vital Signs Initial Vital Signs: Vital Signs Temperature 98.5 F 05/12/23 08:51 Pulse Rate 84 05/12/23 08:51 Respiratory Rate 16 05/12/23 08:51 Blood Pressure 154/77 H 05/12/23 08:51 Pulse Oximetry 98 05/12/23 08:51 Oxygen Delivery Method Room Air 05/12/23 08:51 GENERAL: Well-appearing, well-nourished and in no acute distress. EYE: right eye: EOMI Significant conjunctiva irritation/inflammation and erythema pressure 24mmHg, no hyphema, no subconjunctival hemorrhage, eye stained with fluorescein no dye uptake. Bedside ultrasound no retinal detachment or vitreous humor detachment left eye: Extraocular movements intact CARDIOVASCULAR: peripheral pulses in tact, cap refill <2 sec RESPIRATORY: No respiratory distress, speaks in full sentences without difficulty EXTREMITIES: Normal range of motion, no clubbing or edema. Neurovascularly intact NEUROLOGICAL: Cranial nerves II through XII grossly intact. Normal gait and speech. SKIN: Warm, dry, no petechiae, no rashes or lesions. Course Orders Ordered: Discontinued Medications Hydrocodone Bitart/Acetaminophen (Hydrocodone/Acet 5/325 Tablet) 1 tab PO NOW ONE Stop: 05/12/23 09:40 Last Admin: 05/12/23 09:44 Dose: 1 tab Documented By: THANIA Fluorescein Sodium (Fluorescein 1 Mg Strip) 1 mg EYE-BOTH NOW ONE Stop: 05/12/23 08:56 Last Admin: 05/12/23 09:03 Dose: 1 mg Documented By: NR Ibuprofen (Ibuprofen 400 Mg Tablet) 800 mg PO NOW ONE Stop: 05/12/23 09:13 Last Admin: 05/12/23 09:20 Dose: 800 mg Documented By: NR Proparacaine HCl (Proparacaine 0.5% Ophth Mia) 1 drops EYE-BOTH NOW ONE Stop: 05/12/23 08:56 Last Admin: 05/12/23 09:03 Dose: 1 drop Documented By: NR Vital Signs Vital signs: Vital Signs - 8 hr 05/12/23 08:51 Temperature 98.5 F Pulse Rate 84 Respiratory Rate 16 Blood Pressure 154/77 H Pulse Oximetry 98 Oxygen Delivery Method Room Air MDM - Eye Problem MDM Narrative Medical decision making narrative: Patient 72-year-old female presents with sudden onset of right eye pain. She denies absolutely no vision loss. Unlikely to be a retinal artery or retinal detachment. Pressure in both eyes is within normal limits unlikely to be an acute angle glaucoma. The conjunctivae is extremely inflamed and erythematous probably a conjunctivitis. Allergic versus viral versus bacterial. Start on antibiotics. 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 This might be like allergic conjunctivitis versus bacterial. Will start on antibiotic drops *Continue to take medications as directed Gentamicin ointment at night for soothing Gentamicin drops every 4 hours while awake Motrin 600 mg every 6 hours if needed for xzaz-vk-naclrner [place] 1 tablet every 6 hours if needed for severe pain *Follow up with your primary care provider in 2-3 days or call [phone] Call your utility accounts director tomorrow schedule an appointment this week *Return to ER if you should have increasing pain loss of vision fever or any new, worsening or concerning symptoms Prescriptions: New gentamicin 0.1 % ointment 1 applic topical .at night Qty: 15 0RF gentamicin 0.3 % drops 2 drp EYE-RIGHT Q4HRWA 7 Days Qty: 5 0RF hydrocodone-acetaminophen 5-325 mg tablet 1 tab PO Q6H PRN (Reason: pain) Qty: 10 0RF No Action levothyroxine 75 mcg tablet 75 mcg PO DAILY escitalopram oxalate [Lexapro] 20 mg tablet 10 mg PO DAILY amlodipine 10 mg tablet 10 mg PO DAILY trazodone 50 mg PO QPM fluticasone propionate [Flonase Allergy Relief] 50 mcg/actuation spray,suspension 1 spray intranasal Q12H Qty: 16 0RF Rx Instructions: administer into each nostril Mucinex 1,200 mg tablet extended release 12hr 1,200 mg PO BID Qty: 10 0RF benzonatate 100 mg capsule 100 mg PO TID PRN (Reason: cough) Qty: 21 0RF meloxicam 15 mg Tablet 15 mg PO DAILY omega 0-fxs-etj-fish oil [Fish Oil] 1,000 mg (120 mg-180 mg) Capsule 1 cap PO DAILY All Day Allergy (cetirizine) 10 mg capsule 10 mg PO DAILY PRN (Reason: Allergic Symptoms) Referrals: Shawna Johnston PA-C [Primary Care Provider] - Stand Alone Forms: Patient Portal/API
[2023-05-12] MEDS: IBUPROFEN 400 MG TABLET 800 MG PO (09:20)
[2023-05-12] MEDS: HYDROCODONE/ACET 5/325 TABLET 1 TAB PO (09:44)
[2023-05-12 09:52] VITALS: BP 135/65; PULSE 67; O2SAT 95
== END 2023-05-12 09:52 | disposition home or self-care (01) ==
PROVIDERS: Emergency Provider Emergency Medicine; Family Provider Physician Assistant; PCP Physician Assistant
DX: H10.9 Unspecified conjunctivitis (principal)
CPT/HCPCS: 99283

== ENCOUNTER → 2023-05-14 11:47 | Outpatient (CLI) | payer OTHER, SELFPAY ==
[2023-02-01 11:02] VITALS: BMI 29.8
[2023-05-14 13:45] LABS: Rheumatoid Factor < 8.6 IU/mL (<12.0)
[2023-05-15 09:17] LABS: RPR Screen Non Reactive (Non Reactive)
[2023-05-16 21:29] LABS: Lysozyme (Muramidase) 4.7 ug/mL (3.7-8.5)
[2023-05-17 02:36] LABS: Angiotensin Converting Enzyme 22 U/L (14-82)
[2023-05-23 11:21] LABS: Treponema pallidum Antibodies NON REACTIVE
[2023-05-27 15:39] LABS: HLA B27 Negative (.)
== END ==
PROVIDERS: Family Provider Physician Assistant; PCP Physician Assistant; Referring Provider Ophthalmology; Visit Provider Ophthalmology
DX: H20.00 Unspecified acute and subacute iridocyclitis (principal)
CPT/HCPCS: 36415; 81374; 82164; 85549; 86430; 86592; 86780

== ENCOUNTER → 2023-07-04 13:53 | Outpatient (CLI) | payer OTHER, SELFPAY ==
[2023-02-01 11:02] VITALS: BMI 29.8
== END ==
PROVIDERS: Family Provider Physician Assistant; PCP Physician Assistant; Referring Provider Family Medicine; Visit Provider Family Medicine
DX: Z23 Encounter for immunization (principal)
CPT/HCPCS: 90471; 90662

== ENCOUNTER 2023-09-19 12:01 | Emergency (ER) | payer OTHER, SELFPAY ==
[2023-02-01 11:02] VITALS: BMI 29.8
[2023-09-19] VITALS (9 sets, daily range): BP systolic 140–172; BP diastolic 60–88; PULSE 62–72; RESP 13–23; TEMP 36.7; O2SAT 96–100; BMI 32.1
--- NOTE | 2023-09-19 12:21 | ED_ITS ---
HPI - General Adult General Chief complaint: Dizziness Stated complaint: VISUAL DISTURBANCES/n/LIGHTHEADEDNESS Time Seen by Provider: 09/19/23 12:12 Source: patient Mode of arrival: Wheelchair History of Present Illness HPI narrative: Patient is a 73-year-old female. 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 She states that she was with a patient when she states that almost on the patient's face went blurry and then she became lightheaded. No headache. She is ringing in her ears but this is not new. No numbness and tingling in her upper and lower extremities. No palpitations. No chest pain. Is having some nausea because of the blurriness in her vision but no vomiting. She has had vertigo in the past but this feels different than that. No sinus congestion. No fevers. She recently had uveitis. She is completed the course of this. There was also some question about thyroid issues. Related Data Home Medications Medication Instructions Recorded Confirmed amlodipine 10 mg tablet 10 mg PO DAILY 01/20/21 01/03/23 escitalopram oxalate 20 mg tablet 10 mg PO DAILY 01/20/21 01/03/23 (Lexapro) levothyroxine 75 mcg tablet 75 mcg PO DAILY 01/20/21 01/03/23 trazodone 50 mg PO QPM sleep 01/20/21 01/03/23 cetirizine 10 mg capsule (All Day 10 mg PO DAILY PRN Allergic 06/20/22 01/03/23 Allergy (cetirizine)) Symptoms meloxicam 15 mg tablet 15 mg PO DAILY 01/03/23 01/03/23 omega 7-ftf-tgk-fish oil 1,000 mg 1 cap PO DAILY 01/03/23 01/03/23 (120 mg-180 mg) capsule (Fish Oil) Previous Rx's Medication Instructions Recorded benzonatate 100 mg capsule 100 mg PO TID PRN cough #21 caps 02/01/23 guaifenesin 1,200 mg tablet, 1,200 mg PO BID #10 tabs 02/01/23 extended release 12 hr (Mucinex) fluticasone propionate 50 1 spray intranasal Q12H #16 grams 02/03/23 mcg/actuation nasal spray,suspension (Flonase Allergy Relief) gentamicin 0.1 % topical ointment 1 applic topical .at night #15 05/12/23 grams hydrocodone 5 mg-acetaminophen 325 1 tab PO Q6H PRN pain #10 tabs 05/12/23 mg tablet Allergies Allergy/AdvReac Type Severity Reaction Status Date / Time vaccine adjuvant system, Allergy Severe hives, Verified 02/01/23 11:51 AS01B liposomal syncope [From Shingrix (PF)] varicella-zoster virus Allergy Severe hives, Verified 02/01/23 11:51 glycoprotein E, recombinant syncope [From Shingrix (PF)] codeine Allergy Intermediate BP drop Verified 02/01/23 11:51 butorphanol [From Stadol] Allergy Verified 02/01/23 11:51 Review of Systems Review of Systems ROS Unobtainable: All systems reviewed & are unremarkable except as noted in HPI and below Patient History Medical History Obstructive sleep apnea of adult Social History household members: spouse Smoking Status: Never smoker Smoking Status: Never smoker alcohol intake frequency: 0-2 drinks per day Substance Use Type: does not use Exam Initial Vital Signs Initial Vital Signs: Vital Signs Temperature 98.1 F 09/19/23 12:11 Pulse Rate 67 09/19/23 12:11 Respiratory Rate 18 09/19/23 12:11 Blood Pressure 172/88 H 09/19/23 12:11 Pulse Oximetry 98 09/19/23 12:11 Oxygen Delivery Method Room Air 09/19/23 12:11 Const General: cooperative, comfortable and No ill appearing [facility] Head: normal to inspection and normocephalic Nose: external nose normal Face and sinus: normal facial exam Mouth: oral mucosae normal Eyes Periorbital: periorbital findings normal Eyelids: eyelids normal Pupils: PERRL EOM: EOM intact bilaterally Resp Effort & Inspection: normal respiratory effort Cardio Rate: regular rate GI Inspection: normal to inspection and non-distended Skin General: no rashes or lesions noted Neuro General: patient alert, patient awake and moves all extremities Cranial Nerves: CN's II-XI intact bilaterally Cognition: normal cognition Speech: speech normal Sensory Exam: no sensory deficits noted Extrem General: No edema Course Orders Ordered: ED Orders 09/19/23 12:22 CT angio head and neck Stat CT head/brain wo con Stat EKG-12 Lead Stat 09/19/23 12:30 Complete Blood Count AUTO DIFF Stat Comprehensive Metabolic Panel Stat Lipase Stat PTT Partial Thromboplastin Ibrahima Stat Prothrombin Time INR Stat Thyroid Stimulating Hormone Stat 09/19/23 13:25 MR head/brain wo con Stat Discontinued Medications Ondansetron HCl (Ondansetron 4 Mg/2 Ml Inj) 4 mg IV NOW ONE Stop: 09/19/23 12:52 Last Admin: 09/19/23 12:53 Dose: Not Given Documented By: OW Vital Signs Vital signs: Vital Signs - 8 hr 09/19/23 12:11 09/19/23 12:31 09/19/23 13:08 Temperature 98.1 F Pulse Rate 67 62 70 Respiratory Rate 18 14 Blood Pressure 172/88 H 159/75 H Pulse Oximetry 98 96 97 Oxygen Delivery Method Room Air Room Air 09/19/23 13:09 09/19/23 13:09 09/19/23 13:30 Temperature Pulse Rate 70 67 Respiratory Rate 13 19 Blood Pressure 151/70 H Pulse Oximetry 96 96 Oxygen Delivery Method 09/19/23 13:30 09/19/23 14:48 09/19/23 14:49 Temperature Pulse Rate 72 Respiratory Rate Blood Pressure 143/75 H 160/76 H Pulse Oximetry 100 Oxygen Delivery Method 09/19/23 14:49 Temperature Pulse Rate 66 Respiratory Rate Blood Pressure Pulse Oximetry 100 Oxygen Delivery Method Medical Decision Making Lab Data Lab results reviewed: Yes I reviewed the patient's lab results. 09/19/23 12:30 09/19/23 12:30 Labs: Lab Results 09/19/23 Range/Units 12:30 WBC 6.0 (4.5-11.0) X10^3/uL RBC 4.33 (4.0-5.2) X10^6/uL Hgb 13.7 (12.0-16.0) g/dL Hct 39.5 (36-46) % MCV 91.2 (80-100) fL MCH 31.7 (26-34) PG MCHC 34.7 (30-36) % RDW 13.5 (11.6-14.8) % Plt Count 278 (150-400) X10^3/uL Neut % (Auto) 57.0 (50-75) % Lymph % (Auto) 32.6 (25-40) % [place] % (Auto) 7.6 (3-14) % Eos % (Auto) 1.9 L (2-4) % Baso % (Auto) 0.9 (0-2) % Neut # (Auto) 3400 (0073-5433) /uL Lymph # (Auto) 1900 (3988-8599) /uL [place] # (Auto) 500 (0-900) /uL Eos # (Auto) 100 (0-450) /uL Baso # (Auto) 100 (0-100) /uL PT 13.1 H (9.4-12.5) SECONDS INR 1.1 (0.9-1.3) APTT 32 (25.1-36.5) SECONDS Sodium 134 L (137-145) mmol/L Potassium 3.9 (3.4-5.1) mmol/L Chloride 102 (98-107) mmol/L Carbon Dioxide 25 (22-32) mmol/L BUN 24 H (7-17) mg/dL Creatinine 0.63 (0.52-1.04) mg/dL Estimated GFR > 60 (>60) mL/min BUN/Creatinine Ratio 38.1 H (6-22) Glucose 100 (80-110) mg/dL Calcium 9.8 (8.4-10.2) mg/dL Total Bilirubin 0.6 (0.2-1.3) mg/dL AST 25 (14-36) IU/L ALT 24 (<35) IU/L Alkaline Phosphatase 104 (38-126) U/L Total Protein 7.5 (6.3-8.2) g/dL Albumin 4.3 (3.5-5.0) g/dL Globulin 3.2 (1.7-4.1) g/dL Albumin/Globulin Ratio 1.3 (1.0-2.8) Lipase 123 (23-300) U/L TSH 1.57 (0.47-4.68) uIU/mL Imaging Data CT scan - head: Radiologist's Impression: PROCEDURE: CT HEAD/BRAIN WO CON INDICATIONS: Vision changes and lightheadedness TECHNIQUE: Noncontrast 4.5 mm thick angled axial sections acquired from the foramen magnum to the vertex, with coronal and sagittal reformats. For radiation dose reduction, the following was used: automated exposure control, adjustment of mA and/or kV according to patient size. COMPARISON: [facility], , MR HEAD/BRAIN WO CON, 12/03/2021, 9:53. [facility], CT, CT ANGIO HEAD AND NECK, 09/19/2023, 13:00. [facility], CT, CT HEAD/BRAIN WO CON, 12/02/2021, 11:36. FINDINGS: Image quality: Diagnostic. CSF spaces: Basal cisterns are patent. No extra-axial fluid collections. The ventricles are symmetric in size and shape. Brain: No intracranial bleeds or masses. There is cerebral volume loss for age, with resultant ventricular and sulcal prominence. There are periventricular and deep white matter chronic small vessel ischemic changes. There is intracranial internal carotid artery atherosclerosis. Skull and face: Calvarium and visualized facial bones appear intact, without suspicious lesions. Sinuses: Visualized sinuses and mastoids are clear. IMPRESSION: Normal noncontrast head CT for age, stable from prior. CTA - brain/neck: Radiologist's Impression: PROCEDURE: CT ANGIO HEAD AND NECK INDICATIONS: Vision changes and lightheadedness TECHNIQUE: After the administration of intravenous contrast, 1 mm thick sections acquired from the aortic arch through the [place] of Sim. 3-dimensional wauklbh-wzcaaktzn-yczyqntaoj (MIP) and/or volume rendering reformats were acquired of the central intracranial vasculature and neck separately. For radiation dose reduction, the following was used: automated exposure control, adjustment of mA and/or kV according to patient size. COMPARISON: [facility], , MR HEAD/BRAIN WO CON, 12/03/2021, 9:53. [facility], CT, CT HEAD/BRAIN WO CON, 09/19/2023, 13:00. [facility], CT, CT ANGIO HEAD AND NECK, 12/02/2021, 11:35. FINDINGS: Image quality: Diagnostic. BRAIN: CSF spaces: Ventricles are normal in size and shape. Basal cisterns are patent. No extra-axial fluid collections. Brain: No significant abnormality of the brain can be seen. Skull and face: Calvarium and facial bones appear intact, without suspicious lesions. Orbits appear normal. Sinuses: Sinuses and mastoids are clear. HEAD CT ANGIOGRAPHY: Anterior circulation: Intracranial internal carotid arteries are normal in size and flow. The flow within the paired anterior cerebral arteries is considered to be within normal limits, with the right anterior cerebral artery dominant to the left. This is stable compared to the prior examination. The flow within the middle cerebral arteries is normal and symmetric. The anterior communicating artery is seen. No aneurysms are seen. Posterior circulation: Visualized portions of the vertebral arteries demonstrate normal caliber, and join to form a normal appearing basilar artery. There is a prominent right posterior communicating artery seen, with an accompanying diminutive right P1 segment. This is attributed to a type origin of the right posterior cerebral artery, which is considered to be a normal developmental variant of typically no clinical consequence. The flow within the posterior cerebral arteries is normal and symmetric. No aneurysms are seen. NECK CT ANGIOGRAPHY: Carotid system: Incidental note is made of a common origin of the right brachiocephalic artery and the left common carotid artery (bovine type arch). This is considered to be a developmental variant of no clinical consequence. The origins of the common carotid arteries appear patent. The common carotid arteries demonstrate normal caliber and courses. The bifurcation regions are both widely patent. The internal carotid arteries demonstrate normal calibers and courses. Posterior circulation: The origins of the vertebral arteries both appear widely patent. The more superior extracranial portions of both vertebral arteries also demonstrate normal courses and calibers. They join to form a normal appearing basilar artery. Soft tissues: Visualized neck soft tissues demonstrate no suspicious abnormalities. There is a 2.8 cm left thyroid nodule again seen. Bones: No suspicious bony lesions. Visualized cervical spine appears normally aligned. At least moderate lower cervical spine degenerative change is seen. IMPRESSION: No significant intracranial arterial abnormality is seen. Asymmetry of the anterior cerebral arteries can be seen, which is stable compared to the prior examination and considered to be within developmental limits. Within the arteries of the neck, no hemodynamically significant stenosis can be seen. MR brain: Radiologist's Impression: PROCEDURE: MR HEAD/BRAIN WO CON INDICATIONS: Dizziness, visual disturbance TECHNIQUE: Non-contrast axial T1 spin echo, axial T2 fast spin echo, sagittal and axial FLAIR, coronal T2 fast spin echo, axial gradient echo, axial diffusion and ADC through the brain. COMPARISON: [facility], , MR HEAD/BRAIN WO CON, 12/03/2021, 9:53. FINDINGS: Image quality: Excellent. CSF spaces: Ventricles appear symmetric in size and shape. Basal cisterns are patent. No extra-axial fluid collections. Brain: No intracranial bleeds or mass effects. There is cerebral volume loss for age. There are periventricular and deep white matter chronic small vessel ischemic changes. Brainstem appears normal. Diffusion-weighted images show no acute ischemic insults. No chronic ischemic insults. Normal intravascular flow voids are present. Skull and face: Calvarial bone marrow is normal in signal. Orbits are normal. Sinuses: Sinuses and mastoids are clear. IMPRESSION: No acute or subacute infarct. No acute intracranial abnormalities. Age-related global volume loss and chronic microvascular ischemic changes. ECG Data Attestation: I personally reviewed and interpreted this ECG as follows: Interpretation: Sinus rhythm Ventricular rate of 59 Normal axis LVH No ST T wave changes MDM Narrative Medical decision making narrative: CT a of head and neck and CT scan of head unremarkable. MRI of the brain unremarkable as well. During her time here in the emergency department her vision symptoms resolved. She still felt somewhat lightheaded. I do have some concern that this was a cranial nerve palsy causing extraocular muscle palsy although I could not definitively say this. It is not a CVA based on her imaging studies. Also I have low suspicion for TIA. Plan will be to discharge patient home. Will have her start on a baby aspirin. Will have her contact her primary doctor. Will also have her contact her eye doctor for follow-up as well. She was given return precautions. She expressed understanding and agreement. Discharge Plan Departure Patient Disposition: Home Clinical Impression: Vision disturbance, Lightheadedness Instructions: DI for Dizziness-Nonvertigo Activity Restrictions/Additional Instructions: I do recommend that you start taking a baby aspirin like we discussed. Also contact your eye doctor for a follow-up in your primary doctor for follow-up as well. Return to the emergency department for new or worsening symptoms. Prescriptions: No Action levothyroxine 75 mcg tablet 75 mcg PO DAILY escitalopram oxalate [Lexapro] 20 mg tablet 10 mg PO DAILY amlodipine 10 mg tablet 10 mg PO DAILY trazodone 50 mg PO QPM fluticasone propionate [Flonase Allergy Relief] 50 mcg/actuation spray,suspension 1 spray intranasal Q12H Qty: 16 0RF Rx Instructions: administer into each nostril Mucinex 1,200 mg tablet extended release 12hr 1,200 mg PO BID Qty: 10 0RF benzonatate 100 mg capsule 100 mg PO TID PRN (Reason: cough) Qty: 21 0RF gentamicin 0.1 % ointment 1 applic topical .at night Qty: 15 0RF hydrocodone-acetaminophen 5-325 mg tablet 1 tab PO Q6H PRN (Reason: pain) Qty: 10 0RF meloxicam 15 mg Tablet 15 mg PO DAILY omega 4-hec-pra-fish oil [Fish Oil] 1,000 mg (120 mg-180 mg) Capsule 1 cap PO DAILY All Day Allergy (cetirizine) 10 mg capsule 10 mg PO DAILY PRN (Reason: Allergic Symptoms) Referrals: Shawna Johnston PA-C [Primary Care Provider] - Stand Alone Forms: Patient Portal/API
[2023-09-19 12:41] LABS: Add Manual Diff / Slide Review NO; Basophils Absolute Auto 100 /uL (0-100); Basophils Percent Auto 0.9 % (0-2); Eosinophils Absolute Auto 100 /uL (0-450); Eosinophils Percent Auto 1.9 % (2-4); Hematocrit 39.5 % (36-46); Hemoglobin 13.7 g/dL (12.0-16.0); Lymphocytes Absolute Auto 1900 /uL (1100-4500); Lymphocytes Percent Auto 32.6 % (25-40); Mean Corpuscular HGB Conc 34.7 % (30-36); Mean Corpuscular Hemoglobin 31.7 PG (26-34); Mean Corpuscular Volume 91.2 fL (80-100); Monocytes Absolute Auto 500 /uL (0-900); Monocytes Percent Auto 7.6 % (3-14); Neutrophils Absolute Auto 3400 /uL (1500-7000); Platelet Count 278 X10^3/uL (150-400); Red Blood Cell Count 4.33 X10^6/uL (4.0-5.2); Red Cell Distribution Width 13.5 % (11.6-14.8)
[2023-09-19 12:49] LABS: INR 1.1 (0.9-1.3); Prothrombin Time 13.1 SECONDS (9.4-12.5)
[2023-09-19 12:52] LABS: PTT Partial Thromboplastin Tim 32 SECONDS (25.1-36.5)
[2023-09-19] MEDS: ONDANSETRON 4 MG/2 ML INJ (12:52)
[2023-09-19 12:55] LABS: Alanine Aminotransferase 24 IU/L (<35); Albumin 4.3 g/dL (3.5-5.0); Albumin Globulin Ratio 1.3 (1.0-2.8); Alkaline Phosphatase 104 U/L (38-126); Aspartate Aminotransferase 25 IU/L (14-36); BUN Creatinine Ratio 38.1 (6-22); Bilirubin Total 0.6 mg/dL (0.2-1.3); Blood Urea Nitrogen 24 mg/dL (7-17); Calcium 9.8 mg/dL (8.4-10.2); Carbon Dioxide 25 mmol/L (22-32); Chloride 102 mmol/L (98-107); Estimated Glomerular Filt Rate > 60 mL/min (>60); Globulin 3.2 g/dL (1.7-4.1); Glucose 100 mg/dL (80-110); HEMOLYSIS < 15 (0-50); Lipase 123 U/L (23-300); Potassium 3.9 mmol/L (3.4-5.1); Sodium 134 mmol/L (137-145); Total Protein 7.5 g/dL (6.3-8.2)
[2023-09-19 13:25] LABS: Thyroid Stimulating Hormone 1.57 uIU/mL (0.47-4.68)
--- NOTE | 2023-09-19 13:25 | DI.MRI.S_ITS ---
PROCEDURE: MR HEAD/BRAIN WO CON INDICATIONS: Dizziness, visual disturbance TECHNIQUE: Non-contrast axial T1 spin echo, axial T2 fast spin echo, sagittal and axial FLAIR, coronal T2 fast spin echo, axial gradient echo, axial diffusion and ADC through the brain. COMPARISON: [facility], , MR HEAD/BRAIN WO CON, 12/03/2021, 9:53. FINDINGS: Image quality: Excellent. CSF spaces: Ventricles appear symmetric in size and shape. Basal cisterns are patent. No extra-axial fluid collections. Brain: No intracranial bleeds or mass effects. There is cerebral volume loss for age. There are periventricular and deep white matter chronic small vessel ischemic changes. Brainstem appears normal. Diffusion-weighted images show no acute ischemic insults. No chronic ischemic insults. Normal intravascular flow voids are present. Skull and face: Calvarial bone marrow is normal in signal. Orbits are normal. Sinuses: Sinuses and mastoids are clear. IMPRESSION: No acute or subacute infarct. No acute intracranial abnormalities. Age-related global volume loss and chronic microvascular ischemic changes. Dictated by: Hugo Keen M.D. on 09/19/2023 at 14:53 Approved by: Hugo Keen M.D. on 09/19/2023 at 14:56
== END 2023-09-19 15:48 | disposition home or self-care (01) ==
PROVIDERS: Emergency Provider Emergency Medicine; Family Provider Physician Assistant; PCP Family Medicine
DX: R42 Dizziness and giddiness (principal); H53.9 Unspecified visual disturbance
CPT/HCPCS: 36415; 70450; 70496; 70498; 70551; 80053; 83690; 84443; 85025; 85610; 85730; 93005; 93010; 96374; 99284; 99285; J2405; Q9967

== ENCOUNTER 2024-04-09 09:31 | Day surgery (SDC) | payer MEDICARE, SELFPAY ==
[2023-02-01 11:02] VITALS: BMI 29.8
[2024-04-08 07:31] VITALS: BMI 31.8
[2024-04-09] VITALS (9 sets, daily range): BP systolic 109–154; BP diastolic 49–90; PULSE 52–69; RESP 10–18; TEMP 36.1–36.3; O2SAT 92–97; BMI 31.8
[2024-04-09] MEDS: OXYMETAZOLINE NASAL SPRAY 30 ML 2 SPRAYS NASAL (10:17)
[2024-04-09] MEDS: LACTATED RINGERS 1,000 ML 42 ML IV (10:19)
[2024-04-09] MEDS: ACETAMINOPHEN 325 MG TABLET 975 MG PO (10:19)
--- NOTE | 2024-04-09 10:46 | PM.PREOP ---
Pre-operative Note Interval Note History & Physical reviewed/Exam performed by Physician: Yes Changes to H&P: No
--- NOTE | 2024-04-09 10:47 | PM.OP.1 ---
Operative Date/Time/Diagnoses Date of procedure: 04/09/24 Time of procedure: 11:14 Pre-op diagnosis: Closed nasal fracture with external nasal deformity, nasal airway obstruction Post-op diagnosis: same Procedure & Clinicians Procedure: Closed reduction nasal fracture without stabilization Same procedure as scheduled: Yes Indications: 73 Year old with the above diagnoses incompletely managed with medical therapy presents for the above procedure. Following discussion of the material risks benefits complications and alternatives, the patient elected to proceed. She is now 12 days post injury from ground level fall on 03/28/2024. Surgeon: Natanael Summers Click Yes if Unassisted: Yes Anesthesia Type: General and Local Operative Notes Findings: Displaced, comminuted elevated left nasal bone, mildly depressed right nasal bone, pyramid reduced, most noticeably on the LEFT. Bluntly I tried to widen the left nasal aperture as well. Estimated Blood Loss (mL): 0 Procedure in detail: Following identification and confirmation of consent, as well as preoperative Afrin nasal spray she was brought to the operating suite and placed in the supine position. General laryngeal mask anesthesia was administered. I packed small cotton balls with 4% lidocaine tightly under the nasal bones bilaterally for a full minute. Upon removal, the Boies elevator was placed underneath the right depressed nasal bone, and external digital pressure was simultaneously applied over the elevated left nasal bone and the nasal pyramid was reduced past midline to allow eventual midline position, stable. I also bluntly used the elevator to push the left septum medially and the left lateral nasal aperture laterally to see if that area would widened slightly. The cotton was temporarily replaced underneath the nasal nasal bones without evidence of bleeding and was removed after another minute with good hemostasis She was awakened in the operating room and taken to recovery room stable condition without known complication. Complications: none Post-operative Condition: stable Disposition: same day surgery Plan for aftercare: Afrin for any bleeding, nasal saline as needed for moisturization, ice as tolerated.
[2024-04-09] MEDS: LIDOCAINE 4% SOLN 50 ML 20 ML TOP (11:11)
[2024-04-09] MEDS: OXYCODONE IR 5 MG TABLET PO (11:44)
[2024-04-09] MEDS: ONDANSETRON 4 MG/2 ML INJ IV (11:55)
--- NOTE | 2024-04-09 12:08 | SUR.PHASEII ---
Pt complaining of nausea gave pt some zofran and hooked fluids back up and turned down lights and allowed pt to rest. Pt is resting and will give her 15 -20 minutes and revaluate her status and check on nausea and pain . Pt states pain is under control. Discharge instructions given to pt and pt states she understands discharge instructions.
== END 2024-04-09 12:36 | disposition home or self-care (01) ==
PROVIDERS: Family Provider Physician Assistant; PCP Family Medicine; Referring Provider Otolaryngology; Visit Provider Otolaryngology
PROC: 0NSBXZZ Reposition Nasal Bone, External Approach (ICD-10-PCS; CPT 21315; principal; 2024-04-09 10:45)
DX: S02.2XXA Fracture of nasal bones, initial encounter for closed fracture (principal); J98.8 Other specified respiratory disorders
CPT/HCPCS: 21315; J1100; J2405; J2704; J3010

== ENCOUNTER → 2024-07-16 12:20 | Outpatient (CLI) | payer OTHER, SELFPAY ==
[2023-02-01 11:02] VITALS: BMI 29.8
--- NOTE | 2024-07-16 12:30 | DI.MRI.S_ITS ---
PROCEDURE: MR KNEE RT WO CON INDICATIONS: Instability of right knee joint, pain in right knee TECHNIQUE: Noncontrast sagittal PD fast spin echo and T2 fast spin echo with fat saturation, sagittal 3-D FLASH with fat saturation; coronal T1 spin echo and PD fast spin echo with fat saturation, and axial PD fast spin echo with fat saturation through the knee. COMPARISON: Outside Film, CR, XR KNEE 4+ VIEWS LEFT, 03/28/2024, 18:30. FINDINGS: Image quality: Excellent. Menisci: The medial meniscus is unremarkable. In the lateral meniscus, there is a complex tear and near maceration of the medial meniscus body, extending into the anterior horn. There is marked extrusion of the lateral meniscus body with a small meniscus flap extending slightly into the inferior gutter. Cruciate ligaments: The anterior and posterior cruciate ligaments appear intact. Medial structures: The medial collateral ligament appears intact. The posterior oblique ligament, semimembranosus tendon insertions, oblique popliteal ligament, and meniscocapsular junction appear intact. Visualized portions of the pes anserinus tendons appear normal. No abnormal bursal fluid. Lateral structures: The lateral collateral ligament, long and short heads of the biceps femoris tendon appear intact. The popliteus tendon appears normal; the popliteofibular ligament appears intact. The posterosuperior and anteroinferior popliteomeniscal fascicles appear intact. The arcuate and fabellofibular ligaments appear intact, on either side of the lateral inferior geniculate artery. Iliotibial band appears normal. Anterior structures: The quadriceps and patellar tendons appear intact. Patellar alignment is normal. No femoral trochlear dysplasia or ventral trochlear prominence. No edema in the infrapatellar fat pad. Bones and cartilage: There is high-grade chondral loss of the median ridge and lateral facet of the patella, with mild subchondral marrow edema in the lateral patellar facet. Cartilage of the trochlea is grossly well maintained. Cartilage of the medial compartment is grossly well maintained. In the lateral compartment, there is mild chondral irregularity in the weight-bearing portion of the lateral femoral condyle. No acute fracture. Joint space: Small knee effusion. No popliteal cyst. Popliteal vasculature is unremarkable. IMPRESSION: 1. Extensive tear of the lateral meniscus. 2. Moderate, patellofemoral compartment predominant chondrosis with mild subchondral marrow edema. Dictated by: Ewelina Price M.D. on 07/16/2024 at 15:15 Approved by: Ewelina Price M.D. on 07/16/2024 at 15:24
== END ==
LOC: MRI 12:21
PROVIDERS: Family Provider Physician Assistant; PCP Family Medicine; Referring Provider Family Medicine; Visit Provider Family Medicine
DX: M25.361 Other instability, right knee (principal); S83.271A Complex tear of lateral meniscus, current injury, right knee, initial encounter; M25.561 Pain in right knee
CPT/HCPCS: 73721

== ENCOUNTER → 2024-08-20 07:22 | Outpatient (CLI) | payer OTHER, SELFPAY ==
[2023-02-01 11:02] VITALS: BMI 29.8
[2024-08-20 08:12] LABS: Calcium 9.7 mg/dL (8.4-10.2); Estimated Glomerular Filt Rate > 60 mL/min (>60)
== END ==
PROVIDERS: Family Provider Physician Assistant; PCP Family Medicine; Referring Provider Family Medicine; Visit Provider Family Medicine
DX: Z01.818 Encounter for other preprocedural examination (principal); M81.0 Age-related osteoporosis without current pathological fracture
CPT/HCPCS: 36415; 82310; 82565

== ENCOUNTER → 2024-10-02 12:15 | Outpatient (CLI) | payer MEDICARE, SELFPAY ==
[2023-02-01 11:02] VITALS: BMI 29.8
[2024-10-02 14:09] LABS: Add Manual Diff / Slide Review NO; Basophils Absolute Auto 100 /uL (0-100); Eosinophils Absolute Auto 200 /uL (0-450); Eosinophils Percent Auto 2.7 % (2-4); Hematocrit 38.7 % (36-46); Hemoglobin 13.4 g/dL (12.0-16.0); Lymphocytes Absolute Auto 2800 /uL (1100-4500); Lymphocytes Percent Auto 33.2 % (25-40); Mean Corpuscular HGB Conc 34.5 % (30-36); Mean Corpuscular Hemoglobin 32.1 PG (26-34); Monocytes Absolute Auto 600 /uL (0-900); Monocytes Percent Auto 7.7 % (3-14); Neutrophils Absolute Auto 4600 /uL (1500-7000); Neutrophils Percent Auto 55.4 % (50-75); Platelet Count 310 X10^3/uL (150-400); Red Blood Cell Count 4.16 X10^6/uL (4.0-5.2); Red Cell Distribution Width 13.7 % (11.6-14.8); White Blood Cell Count 8.3 X10^3/uL (4.5-11.0)
[2024-10-02 14:30] LABS: Alanine Aminotransferase 20 IU/L (<35); Albumin 4.3 g/dL (3.5-5.0); Albumin Globulin Ratio 1.8 (1.0-2.8); Alkaline Phosphatase 110 U/L (38-126); Aspartate Aminotransferase 23 IU/L (14-36); BUN Creatinine Ratio 41.3 (6-22); Bilirubin Total 0.5 mg/dL (0.2-1.3); Blood Urea Nitrogen 43 mg/dL (7-17); Calcium 10.5 mg/dL (8.4-10.2); Carbon Dioxide 25 mmol/L (22-32); Chloride 105 mmol/L (98-107); Cholesterol 191 mg/dL (140-199); Estimated Glomerular Filt Rate 56 mL/min (>60); Globulin 2.4 g/dL (1.7-4.1); Glucose 100 mg/dL (80-110); HDL Cholesterol 76 mg/dL (40-60); HEMOLYSIS < 15 (0-50); LDL Cholesterol Calculated 90 mg/dL (<100); Potassium 4.3 mmol/L (3.4-5.1); Sodium 139 mmol/L (137-145); Total Protein 6.7 g/dL (6.3-8.2); Triglycerides 123 mg/dL (35-150)
== END ==
LOC: LAB 12:15
PROVIDERS: Family Provider Physician Assistant; PCP Family Medicine; Referring Provider Family Medicine; Visit Provider Family Medicine
DX: I10 Essential (primary) hypertension; G47.33 Obstructive sleep apnea (adult) (pediatric); E06.3 Autoimmune thyroiditis
CPT/HCPCS: 36415; 80053; 80061; 84443; 85025

== ENCOUNTER → 2024-10-20 14:41 | Outpatient (CLI) | payer MEDICARE, SELFPAY ==
[2023-02-01 11:02] VITALS: BMI 29.8
--- NOTE | 2024-10-20 14:43 | DI.MG.S_ITS ---
BILATERAL DIGITAL SCREENING MAMMOGRAM 3D/2D WITH CAD: 10/20/2024 CLINICAL: Routine screening. Comparison is made to exams dated: 09/04/2023 mammogram - [facility], 12/29/2020 mammogram - [facility], and 05/03/2016 mammogram - outside location. There are scattered areas of fibroglandular density (category b / 25%-50% glandular tissue). Current study was also evaluated with a Computer Aided Detection (CAD) system. No significant masses, calcifications, or other findings are seen in either breast. There has been no significant interval change. IMPRESSION: NEGATIVE There is no mammographic evidence of malignancy. A 1 year screening mammogram is recommended. Based on the Tyrer Cuzick model (a risk assessment model) the patient's lifetime risk is 1.9% and her 10 year risk is 0.0%. According to the ACR, ACS, and NCCN guidelines, an annual breast MRI exam along with mammogram is recommended if the patient's lifetime risk is 20% or greater. This exam was interpreted at Station ID: [id number]. NOTE: For mammograms, a report in lay terms will be sent to the patient. Approximately 15% of breast malignancies will not be visualized mammographically. In the management of a palpable breast mass, a negative mammogram must not discourage biopsy of a clinically suspicious lesion. Electronically Signed By: Genaro edgar/israel:10/20/2024 15:57:54 letter sent: Normal Exam ACR BI-RADS Category 1: Negative
== END ==
PROVIDERS: Family Provider Physician Assistant; PCP Family Medicine; Referring Provider Family Medicine; Visit Provider Family Medicine
DX: Z12.31 Encounter for screening mammogram for malignant neoplasm of breast (principal)
CPT/HCPCS: 77063; 77067

== ENCOUNTER → 2024-11-10 14:58 | Outpatient (CLI) | payer MEDICARE, SELFPAY ==
[2023-02-01 11:02] VITALS: BMI 29.8
--- NOTE | 2024-11-10 15:02 | DI.RAD.S_ITS ---
PROCEDURE: XR CHEST 2V INDICATIONS: UNSPECIFIED ACUTE AND SUBACUTE IRODOCYCLITIS TECHNIQUE: 2 views of the chest were acquired. COMPARISON: [facility], CR, XR CHEST 2V, 02/01/2023, 12:40. [facility], CR, XR CHEST 2V, 06/03/2022, 14:45. FINDINGS: Surgical changes and devices: None. Lungs and pleura: Lungs are clear. No pleural effusions or pneumothorax. Mediastinum: Mediastinal contours are normal. Heart size is normal. Bones and chest wall: No suspicious bony abnormalities. Soft tissues appear unremarkable. IMPRESSION: No acute cardiopulmonary abnormality is seen. Dictated by: Ashkan Obando M.D. on 11/10/2024 at 17:50 Approved by: Ashkan Obando M.D. on 11/10/2024 at 17:51
[2024-11-10 15:59] LABS: Rheumatoid Factor < 8.6 IU/mL (<12.0)
== END ==
PROVIDERS: Family Provider Physician Assistant; PCP Family Medicine; Referring Provider Ophthalmology; Visit Provider Ophthalmology
DX: H20.00 Unspecified acute and subacute iridocyclitis (principal)
CPT/HCPCS: 36415; 71046; 86430

== ENCOUNTER 2025-09-17 12:14 | Emergency (ER) | payer MEDICARE, SELFPAY ==
[2023-02-01 11:02] VITALS: BMI 29.8
[2025-09-17 12:22] VITALS: BP 113/59; PULSE 86; RESP 16; TEMP 36.6; O2SAT 100; BMI 26.6
--- NOTE | 2025-09-17 12:27 | EKG_ITS ---
[place] [id number] [place] [id number] Test Date: 2025-09-17 Pat Name: Aggie Purvis Department: [facility] Room: Gender: Female [employer] Operator: DEANDRA : 1950 Requested By: Order Number: [id number] Reading MD: Stuart Tadeo MD Measurements Intervals [place] Rate: 68 P: 46 AR: 192 QRS: -21 QRSD: 74 T: -9 QT: 394 QTc: 418 Interpretive Statements Normal sinus rhythm Minimal voltage criteria for LVH, may be normal variant ( R in aVL ) Inferior infarct , age undetermined Cannot rule out Anterior infarct , age undetermined Electronically Signed On 09-18-2025 9:34:29 PST by Stuart Tadeo MD
[2025-09-17 12:55] LABS: Add Manual Diff / Slide Review NO; Hematocrit 38.2 % (36-46); Hemoglobin 13.0 g/dL (12.0-16.0); Lymphocytes Absolute Auto 1400 /uL (1100-4500); Mean Corpuscular HGB Conc 33.9 % (30-36); Mean Corpuscular Hemoglobin 31.6 PG (26-34); Mean Corpuscular Volume 93.2 fL (80-100); Platelet Count 228 X10^3/uL (150-400)
[2025-09-17 13:07] LABS: Alanine Aminotransferase 35 IU/L (<35); Albumin 4.1 g/dL (3.5-5.0); Albumin Globulin Ratio 1.3 (1.0-2.8); Alkaline Phosphatase 94 U/L (38-126); Blood Urea Nitrogen 29 mg/dL (7-17); Calcium 9.1 mg/dL (8.4-10.2); Carbon Dioxide 22 mmol/L (22-32); Chloride 106 mmol/L (98-107); Estimated Glomerular Filt Rate 58 mL/min (>60); Globulin 3.1 g/dL (1.7-4.1); Glucose 98 mg/dL (70-99); HEMOLYSIS 16 (0-50); Lipase 67 U/L (23-300); Potassium 3.9 mmol/L (3.4-5.1); Sodium 137 mmol/L (137-145); Total Protein 7.2 g/dL (6.3-8.2)
--- NOTE | 2025-09-17 13:18 | DI.RAD.S_ITS ---
PROCEDURE: XR CHEST 1V INDICATIONS: palpitations TECHNIQUE: One view of the chest was acquired. COMPARISON: [facility], CR, XR CHEST 2V, 11/10/2024, 14:59. [facility], CR, XR CHEST 2V, 02/01/2023, 12:40. FINDINGS: Surgical changes and devices: None. Lungs and pleura: Lungs are clear. No pleural effusions or pneumothorax. Mediastinum: Mediastinal contours appear normal. Heart size is normal. Bones and chest wall: No suspicious bony lesions. Overlying soft tissues appear unremarkable. IMPRESSION: No acute cardiopulmonary abnormality is seen. Dictated by: Hugo Keen M.D. on 09/17/2025 at 15:14 Approved by: Hugo Keen M.D. on 09/17/2025 at 15:15
[2025-09-17 13:50] LABS: Troponin I < 0.012 ng/mL (0.01-0.034)
[2025-09-17 14:01] LABS: Clostridium difficile toxin AB Not Detected (Not Detect); Enteroaggregative E.coli Not Detected (Not Detect); Enteropathogenic E.coli Detected (Not Detect); Enterotoxigenic E.coli It/st Not Detected (Not Detect); Plesiomonsa shigelloides Not Detected (Not Detect); Shiga-like toxin-prod E.coli Not Detected (Not Detect)
[2025-09-17] MEDS: SODIUM CHLORIDE 0.9% 1,000 ML 1000 ML IV ×2 (14:03→14:54)
[2025-09-17 14:30] VITALS: BP 139/60; PULSE 76; RESP 17; O2SAT 97
[2025-09-17 14:48] LABS: Ictotest Urine Negative (Negative)
--- NOTE | 2025-09-17 14:57 | ED_ITS ---
HPI - Nausea/Vomiting/Diarrhea General Chief complaint: Abdominal Pain Stated complaint: diarrhea since 09/13 Time Seen by Provider: 09/17/25 12:33 History of Present Illness HPI Narrative: Patient is a 75-year-old female who presented to the ER today for multiple episodes of diarrhea. History is significant for major depressive disorder, hypothyroidism, and hypertension. Diarrhea started as soft stools on Saturday that progressed to multiple episodes of watery diarrhea. She took a few doses of imodium without symptomatic relief. She reports intermittent palpitations, denies any lightheadedness, pre-syncope, syncopal episodes, chest pain. She reports she is relocating and does not have any family members with similar symptoms. She denies dysuria, frequency, or urgency. Related Data Home Medications ?Medication ?Instructions ?Recorded ?Confirmed cetirizine 10 mg capsule (All Day 10 mg PO DAILY PRN A llergic 06/20/22 09/17/25 Allergy (cetirizine)) Symptoms aspirin 81 mg tablet,delayed 81 mg PO DAILY 03/30/24 1 11/18/24 release (Adult Aspirin Regimen) acetaminophen 650 mg 650 mg PO Q8H PRN 09/17/25 1 11/18/24 tablet,extended release (Tylenol 8 Hour) Previous Rx's ?Medication ?Instructions ?Recorded hydrochlorothiazide 12.5 mg tablet 12.5 mg PO DAILY #9 0 tabs 12/07/24 trazodone 50 mg tablet 50 mg PO ONCE PM #90 tabs amlodipine 10 mg tablet 10 mg PO DAILY #90 tabs 03/01 02/21 escitalopram oxalate 20 mg tablet 20 mg PO DAILY #90 t abs 04/07/25 (Lexapro) escitalopram oxalate 10 mg tablet 10 mg PO DAILY #30 t abs 05/03/25 meloxicam 15 mg tablet 15 mg PO DAILY #90 tabs 05/31 05/24 levothyroxine 75 mcg tablet 75 mcg PO DAILY #90 tabs 1 10/11/24 ondansetron 4 mg disintegrating 4 mg PO Q8H #7 tabs tablet Allergies Allergy/AdvReac Type Severity Reaction Status Date / Time atropine Allergy Severe Palpitation Verified 09/17/25 10:34 s vaccine adjuvant system, Allergy Severe hives, Verified 09/17/25 10:34 [id number] liposomal (From syncope Shingrix (PF)) varicella-zoster virus Allergy Severe hives, Verified 09/17/25 10:34 glycoprotein E, recombinant syncope, (From Shingrix (PF)) swelling codeine Allergy Intermediate Rash, Verified 09/17/25 10:34 Hypotension bee venom protein (honey bee) Allergy Verified 09/17/25 10:34 hydrocodone Allergy Throat Verified 09/17/25 10:34 swelling butorphanol (From Stadol) AdvReac Hypotension, Verified 09/17/25 10:34 hallucinations Review of Systems Review of Systems Narrative: See HPI. Patient History Medical History (Updated 09/17/25 @ 14:53 by Humera Marion MD) Right knee pain Acute bronchitis due to COVID-19 virus Muscle strain Foot pain UTI (urinary tract infection) Wears glasses Hearing decreased Vitiligo Plantar warts Abnormal chest xray (~2021) Depression (~1998) TIA (transient ischemic attack) (~2022) Restless leg syndrome (~2021) Osteoporosis (~2009) Fractures (~2015) Ankle pain (~2015) Mumps Measles Herpes (~2020) Chicken pox (~1949) Cataracts, bilateral Fibroids Endometriosis Hemorrhoid Yuri's disease (~2022) Thyroid nodule (~2007) Vertigo (~2021) Uveitis (~2022) MDD (major depressive disorder) Asthma Osteoarthritis of left knee (~2009) Hypothyroid (~2004) HTN (hypertension) Obstructive sleep apnea of adult (~2020) Surgical History Anesthesia History of dilatation and curettage (~1978) History of ankle surgery (~2004) History of knee surgery History of bilateral salpingo-oophorectomy (BSO) (~1985) History of appendectomy (~1957) History of total abdominal hysterectomy (~1985) Family History Father History of heart disease Myocardial infarction Hypertension Mother Cancer Hypertension Mental health problem Grandfather Stroke Grandmother Diabetes mellitus Family/Other Diabetes mellitus Developmental delay Daughter Lupus Myocardial infarction Cardiomyopathy Social History household members: spouse alcohol intake: current alcohol intake frequency: a few times a week Exam Narrative Exam Narrative: General: Well-developed well-nourished in no acute distress. Mouth: Moist mucous membranes Cardiac: Regular rate, no murmurs, rubs, gallops. 2+ radial pulses bilaterally. 2+ PT/DP pulses. Pulmonary: Clear to auscultation in all lung chand Abdomen: Soft, nondistended, minimal tenderness to palpation in right lower quadrant Extremities: No peripheral edema Initial Vital Signs Initial Vital Signs: Vital Signs Temperature 97.9 F 09/17/25 12:22 Pulse Rate 86 09/17/25 12:22 Respiratory Rate 16 09/17/25 12:22 Blood Pressure 113/59 L 09/17/25 12:22 Pulse Oximetry 100 09/17/25 12:22 Oxygen Delivery Method Room Air 09/17/25 12:22 Scores Nexus Score for C-Spine Citation:: 3?points, Low Score (0-3 points), Risk of MACE of 0.9-1.7%. Course Course Course Narrative: 1227: Patient evaluated. At this time do not believe she meets criteria for CT abdomen and pelvis. Labs ordered. Patient in agreement with plan. Will re- evaluate and reconsider need for imaging. 1527: Discussed laboratory findings with the patient. She has received 1 L IV fluids. Given elevated BUN we will add additional liter. Patient okay to be discharged after fluids. Orders Ordered: ED Orders 09/17/25 11:43 Urine Microscopic Stat 09/17/25 12:27 EKG-12 Lead Stat 09/17/25 12:32 GI Panel (Film Array) Stat 09/17/25 12:45 Complete Blood Count AUTO DIFF Stat Comprehensive Metabolic Panel Stat Lipase Stat Troponin I Stat 09/17/25 13:16 EKG-12 Lead Stat 09/17/25 13:18 CXR [XR chest 1V] Stat 09/17/25 14:30 Ictotest Urine Stat Discontinued Medications Sodium Chloride (Normal Saline 0.9%) 1,000 mls @ 1,000 mls/hr IV BOLUS ONE Stop: 09/17/25 14:15 Last Infusion: 09/17/25 14:43 Dose: Infused Documented By: Admin: 09/17/25 14:03 Dose: 1,000 mls/hr Documented By: RONIT Sodium Chloride (Normal Saline 0.9%) 1,000 mls @ 1,000 mls/hr IV BOLUS ONE Stop: 09/17/25 15:27 Last Admin: 09/17/25 14:54 Dose: 1,000 mls/hr Documented By: RONIT Ondansetron HCl (Ondansetron 4 Mg/2 Ml Inj) 4 mg IV NOW PRN PRN Reason: Nausea And Vomiting Ondansetron HCl (Ondansetron 4 Mg Odt) 4 mg PO NOW PRN PRN Reason: Nausea And Vomiting Vital Signs Vital signs: Vital Signs - 8 hr 09/17/25 12:22 09/17/25 14:30 09/17/25 15:00 Temperature 97.9 F Pulse Rate 86 76 72 Respiratory Rate 16 17 15 Blood Pressure 113/59 L 139/60 124/60 Pulse Oximetry 100 97 97 Oxygen Delivery Method Room Air 09/17/25 15:30 Temperature Pulse Rate 83 Respiratory Rate 17 Blood Pressure 135/63 Pulse Oximetry 96 Oxygen Delivery Method MDM - Nausea/Vomiting/Diarrhea Lab Data 09/17/25 12:45 09/17/25 12:45 Labs: Lab Results 09/17/25 09/17/25 09/17/25 Range/Units 11:43 12:32 12:45 WBC 5.4 (4.5-11.0) X10^3/uL RBC 4.10 (4.0-5.2) X10^6/uL Hgb 13.0 (12.0-16.0) g/dL Hct 38.2 (36-46) % MCV 93.2 (80-100) fL MCH 31.6 (26-34) PG MCHC 33.9 (30-36) % RDW 13.6 (11.6-14.8) % Plt Count 228 (150-400) X10^3/uL Neut % (Auto) 56.1 (50-75) % Lymph % (Auto) 25.2 (25-40) % [place] % (Auto) 16.8 H (3-14) % Eos % (Auto) 1.4 L (2-4) % Baso % (Auto) 0.5 (0-2) % Neut # (Auto) 3000 (3997-0819) /uL Lymph # (Auto) 1400 (7285-0024) /uL [place] # (Auto) 900 (0-900) /uL Eos # (Auto) 100 (0-450) /uL Baso # (Auto) 0 (0-100) /uL Sodium 137 (137-145) mmol/L Potassium 3.9 (3.4-5.1) mmol/L Chloride 106 (98-107) mmol/L Carbon Dioxide 22 (22-32) mmol/L BUN 29 H (7-17) mg/dL Creatinine 1.00 (0.52-1.04) mg/dL Estimated GFR 58 L (>60) mL/min BUN/Creatinine Ratio 29.0 H (6-22) Glucose 98 (70-99) mg/dL Calcium 9.1 (8.4-10.2) mg/dL Total Bilirubin 0.6 (0.2-1.3) mg/dL AST 36 (14-36) IU/L ALT 35 H (<35) IU/L Alkaline Phosphatase 94 (38-126) U/L Troponin I < 0.012 (0.01-0.034) ng/mL Total Protein 7.2 (6.3-8.2) g/dL Albumin 4.1 (3.5-5.0) g/dL Globulin 3.1 (1.7-4.1) g/dL Albumin/Globulin Ratio 1.3 (1.0-2.8) Lipase 67 (23-300) U/L Ur Bilirubin Confirm (Negative) Urine RBC 0-1/hpf (0-5/HPF) Urine WBC 1-5/hpf (0-5/HPF) Ur Squamous Epith Cells 1-5 /hpf (0-5/HPF) Urine Bacteria Few (2-10) H (None) Hyaline Casts 1-5/lpf (None) Granular Casts 0-1/lpf (None) Ur Culture Indicated? Cult not indicated Vol Urine Centrifuged 10ml (spun) Stl C. cayetanensis PCR Not detected (Not Detect) Stool Rotavirus (PCR) Not detected (Not Detect) Stool Adenovirus (PCR) Not detected (Not Detect) Stool Astrovirus (PCR) Not detected (Not Detect) Stool Cryptosporidium PCR Not detected (Not Detect) Stl E.coli Shiga Tox PCR Not detected (Not Detect) St Sh/Enteroin Ecoli PCR Not detected (Not Detect) Stl Enterotoxigenic E PCR Not detected (Not Detect) Stool EPEC (PCR) Detected (Not Detect) Stl E. histolytica PCR Not detected (Not Detect) Stool Giardia Lamblia PCR Not detected (Not Detect) Stool Sapovirus (PCR) Not detected (Not Detect) Stl P. shigelloides PCR Not detected (Not Detect) St Y.enterocolitica PCR Not detected (Not Detect) Stool Vibrio (PCR) Not detected (Not Detect) Stl Vibrio cholerae PCR Not detected (Not Detect) Stl Enteroaggr Ecoli PCR Not detected (Not Detect) Stl Norovirus GI/GII PCR Not detected (Not Detect) Campylobacter (PCR) Detected (Not Detect) C. difficile Tox (PCR) Not detected (Not Detect) Salmonella (PCR) Not detected (Not Detect) 09/17/25 Range/Units 14:30 WBC (4.5-11.0) X10^3/uL RBC (4.0-5.2) X10^6/uL Hgb (12.0-16.0) g/dL Hct (36-46) % MCV (80-100) fL MCH (26-34) PG MCHC (30-36) % RDW (11.6-14.8) % Plt Count (150-400) X10^3/uL Neut % (Auto) (50-75) % Lymph % (Auto) (25-40) % [place] % (Auto) (3-14) % Eos % (Auto) (2-4) % Baso % (Auto) (0-2) % Neut # (Auto) (8829-1589) /uL Lymph # (Auto) (6452-5277) /uL [place] # (Auto) (0-900) /uL Eos # (Auto) (0-450) /uL Baso # (Auto) (0-100) /uL Sodium (137-145) mmol/L Potassium (3.4-5.1) mmol/L Chloride (98-107) mmol/L Carbon Dioxide (22-32) mmol/L BUN (7-17) mg/dL Creatinine (0.52-1.04) mg/dL Estimated GFR (>60) mL/min BUN/Creatinine Ratio (6-22) Glucose (70-99) mg/dL Calcium (8.4-10.2) mg/dL Total Bilirubin (0.2-1.3) mg/dL AST (14-36) IU/L ALT (<35) IU/L Alkaline Phosphatase (38-126) U/L Troponin I (0.01-0.034) ng/mL Total Protein (6.3-8.2) g/dL Albumin (3.5-5.0) g/dL Globulin (1.7-4.1) g/dL Albumin/Globulin Ratio (1.0-2.8) Lipase (23-300) U/L Ur Bilirubin Confirm Negative (Negative) Urine RBC (0-5/HPF) Urine WBC (0-5/HPF) Ur Squamous Epith Cells (0-5/HPF) Urine Bacteria (None) Hyaline Casts (None) Granular Casts (None) Ur Culture Indicated? Vol Urine Centrifuged Stl C. cayetanensis PCR (Not Detect) Stool Rotavirus (PCR) (Not Detect) Stool Adenovirus (PCR) (Not Detect) Stool Astrovirus (PCR) (Not Detect) Stool Cryptosporidium PCR (Not Detect) Stl E.coli Shiga Tox PCR (Not Detect) St Sh/Enteroin Ecoli PCR (Not Detect) Stl Enterotoxigenic E PCR (Not Detect) Stool EPEC (PCR) (Not Detect) Stl E. histolytica PCR (Not Detect) Stool Giardia Lamblia PCR (Not Detect) Stool Sapovirus (PCR) (Not Detect) Stl P. shigelloides PCR (Not Detect) St Y.enterocolitica PCR (Not Detect) Stool Vibrio (PCR) (Not Detect) Stl Vibrio cholerae PCR (Not Detect) Stl Enteroaggr Ecoli PCR (Not Detect) Stl Norovirus GI/GII PCR (Not Detect) Campylobacter (PCR) (Not Detect) C. difficile Tox (PCR) (Not Detect) Salmonella (PCR) (Not Detect) Urine Dip Bedside Urine Glucose Negative Bedside Urine Bilirubin ++ 2 Bedside Urine Ketone - Negative Urine Specific [address] 1.015 Bedside Urine Occult Blood - Negative Bedside Urine pH 6.0 Bedside Urine Protein +/- 15 Bedside Urine Urobilinogen - Negative Bedside Urine Nitrite - Negative Bedside Urine Leukocytes +/- 15 Esterase Imaging Data Chest x-ray: Radiologist's Impression: PROCEDURE: XR CHEST 1V FINDINGS: Surgical changes and devices: None. Lungs and pleura: Lungs are clear. No pleural effusions or pneumothorax. Mediastinum: Mediastinal contours appear normal. Heart size is normal. Bones and chest wall: No suspicious bony lesions. Overlying soft tissues appear unremarkable. IMPRESSION: No acute cardiopulmonary abnormality is seen. ECG Data Interpretation: 14:16 EKG with normal sinus rhythm, heart rate 68, AR 192, QRS 74, QTC 418. Left axis deviation. She has global minimal voltage in her EKG. No evidence of ischemia, no ectopy. This EKG was compared to that obtained on 09/19/2023 which is unchanged. MDM Narrative Medical decision making narrative: Patient is a 75-year-old female with a history of depression, hypertension, status post appendectomy who presents with 5 day history of watery diarrhea, nausea, palpitations. Differential diagnosis includes: ACS, infectious versus noninfectious diarrhea to include: bacterial versus viral versus toxigenic diarrhea, diverticulitis, enteral toxigenic E coli, norovirus, Campylobacter, traveler's diarrhea, other. Less likely appendicitis given status post appendectomy. Patient is not complaining of urinary symptoms. In the ER, lab workup included blood counts which were negative for leukocytosis or left shift. No anemia or thrombocytopenia. Chem panel significant for BUN 29, normal creatinine, GFR baseline. Stool culture positive for Enteropathogenic E.coli. Cardiac workup to include EKG, chest x-ray, troponin were not consistent for AL. Heart score 3. Patient was given 2 L of fluids, allowed to hydrate with p.o. intake. During patient's entire ER encounter, she remained hemodynamically normal. She was counseled to stop Imodium and to continue supportive management at home. At discharge patient continued to have normal vitals and she was discharged home in stable/improved condition. Discharge Plan Departure Patient Disposition: Home Clinical Impression: E. coli colitis, Diarrhea, Nausea Instructions: Diarrhea Activity Restrictions/Additional Instructions: You were seen in the emergency department for diarrhea. In the ER: -- Stool culture was positive for E coli -- Lab results consistent with dehydration -- Cardiac work up was not consistent with heart attack or heart strain -- You were given IVF Plan: -- Continue hydrating at home -- STOP imodium -- Implement -- Return to the ER if you develop worsening diarrhea, chest pain, shortness of breath or any other concerning signs or symptoms Prescriptions: New ondansetron 4 mg tablet,disintegrating 4 mg PO Q8H Qty: 7 0RF No Action acetaminophen [Tylenol 8 Hour] 650 mg tablet extended release 650 mg PO Q8H PRN aspirin [Adult Aspirin Regimen] 81 mg tablet,delayed release (DR/EC) 81 mg PO DAILY hydrochlorothiazide 12.5 mg tablet 12.5 mg PO DAILY Qty: 90 3RF trazodone 50 mg tablet 50 mg PO ONCE PM Qty: 90 3RF amlodipine 10 mg tablet 10 mg PO DAILY MDD 1 Qty: 90 2RF Rx Instructions: Take one tablet by mouth daily. escitalopram oxalate [Lexapro] 20 mg tablet 20 mg PO DAILY Qty: 90 1RF escitalopram oxalate 10 mg tablet 10 mg PO DAILY Qty: 30 6RF meloxicam 15 mg tablet 15 mg PO DAILY Qty: 90 3RF levothyroxine 75 mcg tablet 75 mcg PO DAILY Qty: 90 3RF All Day Allergy (cetirizine) 10 mg capsule 10 mg PO DAILY PRN (Reason: Allergic Symptoms) Referrals: Jacinta Shaffer DO [Primary Care Provider, Family Practice] Stand Alone Forms: Patient Portal/API MDM - Abdominal Pain Lab Data 09/17/25 12:45 09/17/25 12:45 Lab Results 09/17/25 09/17/25 09/17/25 Range/Units 11:43 12:32 12:45 WBC 5.4 (4.5-11.0) X10^3/uL RBC 4.10 (4.0-5.2) X10^6/uL Hgb 13.0 (12.0-16.0) g/dL Hct 38.2 (36-46) % MCV 93.2 (80-100) fL MCH 31.6 (26-34) PG MCHC 33.9 (30-36) % RDW 13.6 (11.6-14.8) % Plt Count 228 (150-400) X10^3/uL Neut % (Auto) 56.1 (50-75) % Lymph % (Auto) 25.2 (25-40) % [place] % (Auto) 16.8 H (3-14) % Eos % (Auto) 1.4 L (2-4) % Baso % (Auto) 0.5 (0-2) % Neut # (Auto) 3000 (9896-8934) /uL Lymph # (Auto) 1400 (8938-5143) /uL [place] # (Auto) 900 (0-900) /uL Eos # (Auto) 100 (0-450) /uL Baso # (Auto) 0 (0-100) /uL Sodium 137 (137-145) mmol/L Potassium 3.9 (3.4-5.1) mmol/L Chloride 106 (98-107) mmol/L Carbon Dioxide 22 (22-32) mmol/L BUN 29 H (7-17) mg/dL Creatinine 1.00 (0.52-1.04) mg/dL Estimated GFR 58 L (>60) mL/min BUN/Creatinine Ratio 29.0 H (6-22) Glucose 98 (70-99) mg/dL Calcium 9.1 (8.4-10.2) mg/dL Total Bilirubin 0.6 (0.2-1.3) mg/dL AST 36 (14-36) IU/L ALT 35 H (<35) IU/L Alkaline Phosphatase 94 (38-126) U/L Troponin I < 0.012 (0.01-0.034) ng/mL Total Protein 7.2 (6.3-8.2) g/dL Albumin 4.1 (3.5-5.0) g/dL Globulin 3.1 (1.7-4.1) g/dL Albumin/Globulin Ratio 1.3 (1.0-2.8) Lipase 67 (23-300) U/L Ur Bilirubin Confirm (Negative) Urine RBC 0-1/hpf (0-5/HPF) Urine WBC 1-5/hpf (0-5/HPF) Ur Squamous Epith Cells 1-5 /hpf (0-5/HPF) Urine Bacteria Few (2-10) H (None) Hyaline Casts 1-5/lpf (None) Granular Casts 0-1/lpf (None) Ur Culture Indicated? Cult not indicated Vol Urine Centrifuged 10ml (spun) Stl C. cayetanensis PCR Not detected (Not Detect) Stool Rotavirus (PCR) Not detected (Not Detect) Stool Adenovirus (PCR) Not detected (Not Detect) Stool Astrovirus (PCR) Not detected (Not Detect) Stool Cryptosporidium PCR Not detected (Not Detect) Stl E.coli Shiga Tox PCR Not detected (Not Detect) St Sh/Enteroin Ecoli PCR Not detected (Not Detect) Stl Enterotoxigenic E PCR Not detected (Not Detect) Stool EPEC (PCR) Detected (Not Detect) Stl E. histolytica PCR Not detected (Not Detect) Stool Giardia Lamblia PCR Not detected (Not Detect) Stool Sapovirus (PCR) Not detected (Not Detect) Stl P. shigelloides PCR Not detected (Not Detect) St Y.enterocolitica PCR Not detected (Not Detect) Stool Vibrio (PCR) Not detected (Not Detect) Stl Vibrio cholerae PCR Not detected (Not Detect) Stl Enteroaggr Ecoli PCR Not detected (Not Detect) Stl Norovirus GI/GII PCR Not detected (Not Detect) Campylobacter (PCR) Detected (Not Detect) C. difficile Tox (PCR) Not detected (Not Detect) Salmonella (PCR) Not detected (Not Detect) 09/17/25 Range/Units 14:30 WBC (4.5-11.0) X10^3/uL RBC (4.0-5.2) X10^6/uL Hgb (12.0-16.0) g/dL Hct (36-46) % MCV (80-100) fL MCH (26-34) PG MCHC (30-36) % RDW (11.6-14.8) % Plt Count (150-400) X10^3/uL Neut % (Auto) (50-75) % Lymph % (Auto) (25-40) % [place] % (Auto) (3-14) % Eos % (Auto) (2-4) % Baso % (Auto) (0-2) % Neut # (Auto) (8149-9108) /uL Lymph # (Auto) (4353-5019) /uL [place] # (Auto) (0-900) /uL Eos # (Auto) (0-450) /uL Baso # (Auto) (0-100) /uL Sodium (137-145) mmol/L Potassium (3.4-5.1) mmol/L Chloride (98-107) mmol/L Carbon Dioxide (22-32) mmol/L BUN (7-17) mg/dL Creatinine (0.52-1.04) mg/dL Estimated GFR (>60) mL/min BUN/Creatinine Ratio (6-22) Glucose (70-99) mg/dL Calcium (8.4-10.2) mg/dL Total Bilirubin (0.2-1.3) mg/dL AST (14-36) IU/L ALT (<35) IU/L Alkaline Phosphatase (38-126) U/L Troponin I (0.01-0.034) ng/mL Total Protein (6.3-8.2) g/dL Albumin (3.5-5.0) g/dL Globulin (1.7-4.1) g/dL Albumin/Globulin Ratio (1.0-2.8) Lipase (23-300) U/L Ur Bilirubin Confirm Negative (Negative) Urine RBC (0-5/HPF) Urine WBC (0-5/HPF) Ur Squamous Epith Cells (0-5/HPF) Urine Bacteria (None) Hyaline Casts (None) Granular Casts (None) Ur Culture Indicated? Vol Urine Centrifuged Stl C. cayetanensis PCR (Not Detect) Stool Rotavirus (PCR) (Not Detect) Stool Adenovirus (PCR) (Not Detect) Stool Astrovirus (PCR) (Not Detect) Stool Cryptosporidium PCR (Not Detect) Stl E.coli Shiga Tox PCR (Not Detect) St Sh/Enteroin Ecoli PCR (Not Detect) Stl Enterotoxigenic E PCR (Not Detect) Stool EPEC (PCR) (Not Detect) Stl E. histolytica PCR (Not Detect) Stool Giardia Lamblia PCR (Not Detect) Stool Sapovirus (PCR) (Not Detect) Stl P. shigelloides PCR (Not Detect) St Y.enterocolitica PCR (Not Detect) Stool Vibrio (PCR) (Not Detect) Stl Vibrio cholerae PCR (Not Detect) Stl Enteroaggr Ecoli PCR (Not Detect) Stl Norovirus GI/GII PCR (Not Detect) Campylobacter (PCR) (Not Detect) C. difficile Tox (PCR) (Not Detect) Salmonella (PCR) (Not Detect) Point of Care Results: Urine Dip Bedside Urine Glucose Negative Bedside Urine Bilirubin ++ 2 Bedside Urine Ketone - Negative Urine Specific [address] 1.015 Bedside Urine Occult Blood - Negative Bedside Urine pH 6.0 Bedside Urine Protein +/- 15 Bedside Urine Urobilinogen - Negative Bedside Urine Nitrite - Negative Bedside Urine Leukocytes +/- 15 Esterase ECG Data 14:16: Normal sinus rhythm, HR 68, AR 192, QRS 74, QTC 48. left axis deviation, patient has minimal voltage throughout, this EKG was compared to that obtained on 09/19/2023 and appears unchanged.
[2025-09-17 15:00] VITALS: BP 124/60; PULSE 72; RESP 15; O2SAT 97
[2025-09-17 15:30] VITALS: BP 135/63; PULSE 83; RESP 17; O2SAT 96
[2025-09-17 16:04] LABS: Culture Indicated Urine Cult Not Indicated
== END 2025-09-17 15:44 | disposition home or self-care (01) ==
PROVIDERS: Emergency Provider Student in an Organized Health Care Education/Training Program; Family Provider Physician Assistant; PCP Family Medicine
DX: K52.9 Noninfective gastroenteritis and colitis, unspecified (principal); B96.20 Unspecified Escherichia coli [E. coli] as the cause of diseases classified elsewhere; R10.9 Unspecified abdominal pain; I10 Essential (primary) hypertension
CPT/HCPCS: 36415; 71045; 80053; 81003; 81015; 83690; 84484; 85025; 87507; 93005; 93010; 96360; 99284; J7030